=== PATIENT | male | born 1950 | race Caucasian/White ===

== ENCOUNTER 2020-01-13 09:23 | Outpatient (CLI) | payer MEDICARE, SELFPAY ==
--- NOTE | 2020-01-14 17:27 | ONC CON_ITS ---
Dr. Becerril New Patient Note Patient: Sheng Barrios Unit #: [id number]: 1950 Dicatated By: Richie Becerril M.D.Date of Visit: Jan 13, 2020 Onc MED New Patient/Consult Referring Physician: Dr. ALLIE COTTON M.D. Chief Complaint: Lymphoma. History of Present Illness: This is a 69 year-old man with recently diagnosed follicular lymphoma, grade 1-2. He had presented with enlarged lymph nodes in the groin area on both sides and more significantly in the left axillary area. He had first become aware of the lymph node enlargement about [address] of the abdomen/pelvis on 09/10/2019 showed extensive lymphadenopathy including bilateral inguinal adenopathy measuring up to 18 mm on the left and up to 29 mm in the right, bilateral iliac chain lymphadenopathy measuring up to 2.0 cm on the left and 1.8 cm on the right, para-aortic and pericaval retroperitoneal lymphadenopathy measuring up to 2.5 cm, and central mesenteric lymphadenopathy measuring up to 10 mm. There was mild splenomegaly measuring 14.5 cm. Also noted was diffuse urinary bladder mild wall thickening and prostatic enlargement measuring 5.8 x 4.2 cm. He underwent ultrasound directed core needle biopsy of the right inguinal lymph node on 09/18/2019. Pathology showed malignant B-cell lymphoma consistent with grade 1-2 follicular center lymphoma. By immunoperoxidase the lymphoma cells were positive for CD20, BCL-2, and CD10. They were negative for MUM1 and cyclin D1. BL-6 showed equivocal staining in a few neoplastic follicles. CD3 and CD5 were noted to stain T cells. The Ki-67 showed less than 10% positive staining. He had medical oncology consultation at [facility] with Dr. Alexa Conley on 10/08/2019. The pathology was reviewed there with a diagnosis of follicular lymphoma, follicular pattern, grade 1-2. By flow cytometry the neoplastic cells were noted to be positive for CD10, CD19, CD20, CD23, CD45, FMC 7, and kappa. They were negative for CD5 and lambda. Staging PET/CT on on 11/14/2019 showed bilateral cervical adenopathy levels 1-4 within index conglomerate at the lower left cervical location with maximum SUV of 5.01. There was bilateral axillary adenopathy, more prominent on the left side with an index lesion measuring 6.0 x 4.5 cm, maximum SUV 11.34. There were multiple smaller mediastinal lymph nodes and there was extensive retroperitoneal lymphadenopathy extending into the pelvis involving common iliac, internal iliac, and external iliac lymph nodes and there were multiple bilateral inguinal lymph nodes. In the setting of low-grade lymphoma which was not overtly bulky or symptomatic, observation/expectant management was recommended. He is seen now to continue further management locally. He has been feeling good generally. He says his energy is not what it used to be, and he complains that he does not seem to be able to get into shape. He is still very active, though, and his ECOG score is 0. He has good appetite. His weight is been stable. He does not have fever or night sweats. He has no shortness of breath, cough, or chest pain. He has no GI/ complaints other than his urination is getting a little slower and he does have some nocturia. He does not have any significant joint or bone pain, though he does take glucosamine. He does not complain of headache or dizziness. He has no focal neurologic symptoms. Past Medical History: His only other medical illness is atrial fibrillation. Past Surgical History: He underwent ultsound-directed core needle biopsy of right inguinal lymph node on 09/18/2019. His only prior surgery was a left inguinal hernia repair in 2006. Medications: Eliquis 1 Tablet (of 5 mg) Oral b.i.d., Fish Oil 1 CA 125 Units/mL Capsule Oral daily, Metoprolol Tartrate 1 Tablet (of 25 mg) Oral b.i.d., Multivitamin Adult 1 Tablet Oral daily, Vitamin C 1 Capsule Oral b.i.d. Allergies: No Known Allergies. Social History: Mr. Barrios is and he is retired. He has a history of smoking 1 pack of cigarettes daily, but he quit around 1975. He does not drink alcohol. Family History: Father of colon cancer at age 72. Mother age 78 with bronchitis. A brother has heart disease and diabetes. 2 sisters are in good health. Review Of Symptoms: Constitutional - Overall he feels pretty good. His energy is pretty good, though not what it used to be. He is able to do all his normal activities outside. He complains that he can't get into shape anymore. His appetite is good and weight is stable. No fever, chills, hot flashes, or night sweats. ECOG score is 0, Eyes - He has some issues with his vision, states that he is suppose to be getting glasses, ENMT - No hearing loss. He has tinnitus in the right ear. No sinus congestion/drainage. No mouth sores. No sore throat or difficulty swallowing, Hematologic/Lymphatic - He bruises a little more easily, Respiratory - No shortness of breath. No cough. No pleuritic pain or hemoptysis, Cardiovascular - No angina pain. No palpitations, Gastrointestinal - No nausea or vomiting. No heartburn or acid reflux. No diarrhea or constipation. No blood in the stool or black stools, Genitourinary (M) - His urination is getting a little slower. He gets up once or twice at night. No dysuria or hematuria. No urinary frequency. No urgency or incontinence, Musculoskeletal - No significant joint or bone pain. He does take glucosamine daily, Integumentary - No skin complications, Neurologic - No headache or dizziness. No numbness/paresthesias or other focal neurologic symptoms, Psychiatric - No anxiety or depression. No insomnia. Vital Signs: Performed on Jan 13, 2020 10:25: 0, 27.65, 2.20 sq.m, 73.00 in, 98 %, 59 /min (LOW), 18 /min, 130/82 mm(hg), 97.6 F (LOW), and 209.6 lbs (HIGH). Physical Examination: Constitutional - He appears to be in good general health, Eyes - Sclerae nonicteric. Conjunctivae clear, ENMT - No lesions noted in the oral cavity, Neck - No mass or thyromegaly, Hematologic/Lymphatic - There are small posterior cervical nodes. There is a large mass palpable in the left axilla, measuring in the range of 8 cm. There is no clavicular or right axillary adenopathy noted, Respiratory - Lungs are clear with good air movement bilaterally, Cardiovascular - Heart rhythm is regular. There is no murmur, gallop, or rub noted, Abdomen - Soft and non-tender. Liver and spleen are not enlarged. There is no abdominal mass or ascites noted. There are small inguinal nodes palpable bilaterally, Back/Spine - No spine or CVA tenderness noted, Extremities - No edema. Pedal pulses are palpable bilaterally. There are a few scattered purpuric lesions, Integumentary - No rashes. No suspicious skin lesions noted, Neurologic - No focal neurologic deficits noted. Lab/Imaging: His laboratory studies on 10/08/2020 included CBC showing hemoglobin 14.9 g, white blood cell count 4900, and platelet count 153,000. The differential showed 67% neutrophils, 22% lymphocytes, 7% monocytes, and 1% eosinophils. Comprehensive metabolic profile showed normal renal function with BUN 14 and creatinine 0.93 mg/dL. Bilirubin and liver enzymes were normal. Albumin was normal at 4.1 g/dL. LDH was normal at 164 U/L. The beta 2 microglobulin was normal at 2.30 mg/L. His HIV, HCV, and HBsAb serologies were negative, and the hepatitis B surface antigen also was negative. Impression: 1. Patient with follicular lymphoma, grade 1-2, stage at least III, but not overtly symptomatic. 2. Paroxysmal atrial fibrillation. Plan: I reviewed the CT and PET/CT findings and images, and we discussed the pathology results and clinical implications. He has low-grade lymphoma with generalized lymphadenopathy. With the exception of the left axillary involvement, it is not bulky and he is not overtly symptomatic with it. He has been aware of enlarged lymph nodes for at least 2 years, so it does seem very unlikely that it would be showing rapid progression. Furthermore, he has noticed that the left axillary mass has tended to fluctuate up and down somewhat. Overall, given the findings and clinical course, observation/expectant management still appears to be appropriate. As such, I will plan a follow-up visit with surveillance CT scans of the chest, abdomen, and pelvis at a 6-month interval from the PET/CT. Signed By: Richie Becerril M.D. <<Signature on File>>
== END 2020-01-13 09:24 | disposition home or self-care (01) ==
LOC: ONCMED 09:23
PROVIDERS: Family Provider Orthopaedic Surgery; PCP Family Medicine; Referring Provider Family Medicine; Visit Provider Internal Medicine Medical Oncology
DX: C82.18 Follicular lymphoma grade II, lymph nodes of multiple sites (principal); I48.0 Paroxysmal atrial fibrillation; Z87.891 Personal history of nicotine dependence; Z79.01 Long term (current) use of anticoagulants
CPT/HCPCS: 99205

== ENCOUNTER 2020-04-12 09:15 | Outpatient (CLI) | payer MEDICARE, SELFPAY ==
[2020-04-12 13:54] LABS: Basophils % 0.5 %; Eosinophils # 0.1 10^3/uL (0.0-0.8); Hematocrit 45.7 % (42.0-52.0); Hemoglobin 14.8 g/dL (11.7-16.6); Lymphocytes # 1.5 10^3/uL (0.8-4.8); Lymphocytes % 26.1 %; Mean Corpuscular HGB Conc 32.4 g/dL (30.0-36.0); Mean Corpuscular Hemoglobin 29.8 pg (28.0-34.0); Mean Corpuscular Volume 92.1 fL (80-94); Monocytes # 0.4 10^3/uL (0.2-0.9); Monocytes % 7.5 %; Neutrophils # 3.5 10^3/uL (1.8-7.7); Neutrophils % 63.4 %; Nucleated Red Blood Cells % 0 %; Platelet Count 169 10^3/cmm (130-400); Red Blood Count 4.96 10^6/uL (4.1-5.3); Red Cell Distribution Width 13.3 % (12.1-15.1); White Blood Count 5.6 10^3/uL (4.0-10.0)
[2020-04-12 14:04] LABS: Alanine Aminotransferase 12 U/L (0-41); Albumin Level 4.1 g/dL (3.5-5.2); Alkaline Phosphatase 87 IU/L (40-130); Anion Gap 17.4 (5-19); Aspartate Amino Transferase 23 U/L (0-40); Blood Urea Nitrogen 11 mg/dL (8-23); Calcium 9.5 mg/dL (8.5-10.5); Carbon Dioxide 25 mmol/L (22-29); Chloride 102 mmol/L (98-107); Globulin 2.6 g/dL (1.3-4.6); Glomerular Filtration Rate 95.6 mL/min (90-130); Glucose 88 mg/dL (65-115); Lactate Dehydrogenase 201 U/L (135-225); Osmolality Calculated 285 mOsm/kg (285-295); Potassium 4.4 mmol/L (3.5-5.1); Sodium 140 mmol/L (136-145); Total Bilirubin 0.6 mg/dL (0.15-1.2); Total Protein 6.7 g/dL (6.6-8.7)
== END 2020-04-12 09:16 | disposition home or self-care (01) ==
LOC: ONCMED 13:44
PROVIDERS: Family Provider Orthopaedic Surgery; PCP Family Medicine; Visit Provider Internal Medicine Medical Oncology
DX: C82.18 Follicular lymphoma grade II, lymph nodes of multiple sites (principal)
CPT/HCPCS: 80053; 83615; 85025

== ENCOUNTER 2020-04-13 13:13 | Outpatient (CLI) | payer MEDICARE, SELFPAY ==
--- NOTE | 2020-04-17 10:07 | ONC FU_ITS ---
Dr. Becerril Patient Follow-Up Note Patient: Sheng Barrios Unit #: [id number]: 1950 Dicatated By: Richie Becerril M.D.Date of Visit:Apr 13, 2020 Onc Med Follow-up/Prog Note Chief Complaint: Lymphoma. History of Present Illness: This is a 69 year-old man with recently diagnosed follicular lymphoma, grade 1-2. He had presented with enlarged lymph nodes in the groin area on both sides and more significantly in the left axillary area. He had first become aware of the lymph node enlargement about [address] of the abdomen/pelvis on 09/10/2019 showed extensive lymphadenopathy including bilateral inguinal adenopathy measuring up to 18 mm on the left and up to 29 mm in the right, bilateral iliac chain lymphadenopathy measuring up to 2.0 cm on the left and 1.8 cm on the right, para-aortic and pericaval retroperitoneal lymphadenopathy measuring up to 2.5 cm, and central mesenteric lymphadenopathy measuring up to 10 mm. There was mild splenomegaly measuring 14.5 cm. Also noted was diffuse urinary bladder mild wall thickening and prostatic enlargement measuring 5.8 x 4.2 cm. He underwent ultrasound directed core needle biopsy of the right inguinal lymph node on 09/18/2019. Pathology showed malignant B-cell lymphoma consistent with grade 1-2 follicular center lymphoma. By immunoperoxidase the lymphoma cells were positive for CD20, BCL-2, and CD10. They were negative for MUM1 and cyclin D1. BL-6 showed equivocal staining in a few neoplastic follicles. CD3 and CD5 were noted to stain T cells. The Ki-67 showed less than 10% positive staining. He had medical oncology consultation at [facility] with Dr. Alexa Conley on 10/08/2019. The pathology was reviewed there with a diagnosis of follicular lymphoma, follicular pattern, grade 1-2. By flow cytometry the neoplastic cells were noted to be positive for CD10, CD19, CD20, CD23, CD45, FMC 7, and kappa. They were negative for CD5 and lambda. Staging PET/CT on on 11/14/2019 showed bilateral cervical adenopathy levels 1-4 within index conglomerate at the lower left cervical location with maximum SUV of 5.01. There was bilateral axillary adenopathy, more prominent on the left side with an index lesion measuring 6.0 x 4.5 cm, maximum SUV 11.34. There were multiple smaller mediastinal lymph nodes and there was extensive retroperitoneal lymphadenopathy extending into the pelvis involving common iliac, internal iliac, and external iliac lymph nodes and there were multiple bilateral inguinal lymph nodes. In the setting of low-grade lymphoma which was not overtly symptomatic, observation was recommended. I had seen him initially on 01/13/2020. Despite having a fairly bulky left axillary mass, he was not symptomatic with it, and we opted to just continue with observation/expectant management. He has additional history of atrial fibrillation. He is on chronic anticoagulation with apixaban. He has no other medical illnesses. He has a history of smoking 1 pack of cigarettes daily, but he quit smoking sometime in the mid 1970s. He is seen for a follow-up visit. He has been feeling good generally. He has pretty good energy, and he continues to have normal activity. ECOG score is 0. He has good appetite. He has no fever or night sweats. He has no shortness of breath, cough, or chest pain. He has no GI/ complaints other than frequent urination. He has no significant joint or bone pain. He has no focal neurologic symptoms. Medications: Eliquis 1 Tablet (of 5 mg) Oral b.i.d., Fish Oil 1 CA 125 Units/mL Capsule Oral daily, Metoprolol Tartrate 1 Tablet (of 25 mg) Oral b.i.d., Multivitamin Adult 1 Tablet Oral daily, Vitamin C 1 Capsule Oral b.i.d. Allergies: No Known Allergies. Review of Systems: Constitutional - He has pretty good energy. He has normal activity. Appetite is good and weight is stable. No fever or night sweats. ECOG score is 0, ENMT - No sinus congestion/drainage. No mouth sores. No sore throat or difficulty swallowing, Hematologic/Lymphatic - No abnormal bruising or bleeding, Respiratory - No shortness of breath. No cough. No pleuritic pain or hemoptysis, Cardiovascular - No angina pain. No palpitations, Gastrointestinal - No nausea or vomiting. No heartburn or acid reflux. No diarrhea or constipation. No blood in the stool or black stools, Genitourinary (M) - No dysuria or hematuria. He has urinary frequency. No urgency or incontinence, Musculoskeletal - No significant joint or bone pain, Integumentary - , Neurologic - No headache or dizziness. No numbness or tingling. No other focal neurologic symptoms, Psychiatric - No anxiety or depression. No insomnia. Vital Signs: Performed on Apr 13, 2020 13:41 Height - 73.00 in Weight - 210.2 lbs (HIGH) BSA - 2.20 sq.m BMI - 27.73 Temperature - 98.4 F Pulse - 71 /min Respiration - 18 /min BP - 140/77 mm(hg) O2 Sat - 98 % Pain - 0 Physical Examination: Constitutional - He looks good generally, Eyes - Sclerae nonicteric. Conjunctivae clear, ENMT - No lesions noted in the oral cavity, Hematologic/Lymphatic - There are small cervical nodes bilaterally. There is no clavicular adenopathy noted. There is just a small node in the right axilla. The left axillary mass appears unchanged, measuring approximately 10 x 8 cm, Respiratory - Lungs are clear with good air movement bilaterally, Cardiovascular - Heart rhythm is regular. There is no murmur, gallop, or rub noted, Abdomen - Soft. Liver and spleen are not enlarged. There is no abdominal mass or ascites noted. There are small inguinal nodes palpable bilaterally, Extremities - No edema, Neurologic - No focal neurologic deficits noted. Lab/Imaging: CBC shows hemoglobin 14.8 g, white blood cell count 5600, and platelet count 169,000. Comprehensive metabolic profile is unremarkable. LDH is normal at 201 U/L. Impression: 1. Patient with follicular lymphoma, grade 1-2, stage at least III, but not overtly symptomatic. 2. Paroxysmal atrial fibrillation. He has generalized lymphadenopathy. He has a fairly large left axillary mass, but the adenopathy is otherwise not bulky. He is not symptomatic with it. His overall clinical status appears stable. Plan: As long his disease is not symptomatic and not showing obvious progression, he remains on observation/expectant management. I will see him again in 3 months. Signed By: Richie Becerril M.D. <<Signature on File>>
== END 2020-04-13 13:14 | disposition home or self-care (01) ==
LOC: ONCMED 13:16
PROVIDERS: PCP Family Medicine; Visit Provider Internal Medicine Medical Oncology
DX: C82.18 Follicular lymphoma grade II, lymph nodes of multiple sites (principal); I48.91 Unspecified atrial fibrillation; R59.0 Localized enlarged lymph nodes
CPT/HCPCS: G0463

== ENCOUNTER 2020-06-04 12:54 | Emergency (ER) | payer MEDICARE, SELFPAY ==
[2020-06-04 12:56] VITALS: BP 147/85; PULSE 84; RESP 18; TEMP 37.3; O2SAT 92; BMI 27.0
[2020-06-04 13:19] VITALS: BP 133/74; PULSE 74; RESP 18; O2SAT 98
--- NOTE | 2020-06-04 13:21 | ED_ITS ---
HPI - Ear Problem General: Chief complaint: Ear Stated complaint: knot on ear Time Seen by Provider: 06/04/20 13:03 History of Present Illness: HPI Narrative: [place] now has right swollen ear that is painful as discharge MD Complaint: ear pain and ear discharge Location: right ear Duration: constant Severity: moderate Relieving factors: nothing Exacerbating factors: nothing Context: recent swimming Discharge from ear: yes - clear Associated symptoms: Reports no associated symptoms, ear or mastoid pain and external ear pain; Denies fever(s) or headache(s) Review of Systems Const: Denies: fever(s), chills or body aches Eyes: Denies: change in vision or blurry vision ENMT: Reports: ear or mastoid pain Card: Denies: chest pain or dyspnea on exertion Resp: Denies: dyspnea, productive cough or non-productive cough GI: Denies: abdominal pain, nausea or vomiting : Denies: difficulty urinating Musc: Denies: extremity pain Skin/Breast: Denies: rash Neuro: Denies: headache(s) Psych: Denies: anxiety or depression Sergio/Lymph: Denies: easy bruising Physical Exam Const: COMMON NORMALS: no acute distress, average body habitus and patient oriented x3 HENMT: COMMON NORMALS: normocephalic HEAD & SCALP: normal to inspection and normocephalic FACE & SINUS: normal facial exam EXTERNAL EAR: Yes external ear abnormal (Red and swollen does have some clear drainage unable to visualize canal.) Eye: COMMON NORMALS: conjunctivae normal GENERAL EYE: appearance normal, both eyes and all related structures CONJUNCTIVA: Yes conjunctivae normal Neck/C-Spine: COMMON NORMALS: no JVD Chest: COMMONS NORMALS: normal inspection of the chest Resp: COMMON NORMALS: normal respiratory effort Cardio: COMMON NORMALS: no JVD Extremity: COMMON NORMALS: normal to inspection and full ROM Neuro: COMMON NORMALS: patient oriented x3 Course Vital Signs: Vital signs: Vital Signs Temperature 99.1 F 06/04/20 12:56 Pulse Rate 84 06/04/20 12:56 Respiratory Rate 18 06/04/20 12:56 Blood Pressure 147/85 06/04/20 12:56 Pulse Oximetry 92 06/04/20 12:56 Discharge Plan Discharge Patient Disposition: Home Clinical Impression: Otitis externa Qualifiers: Otitis externa type: diffuse Chronicity: acute Laterality: right Qualified Code(s): H60.311 - Diffuse otitis externa, right ear Condition: Stable Prescriptions: New Cortisporin-TC 3.3-3-10-0.5 mg/mL drops,suspension 4 drop EAR-BOTH TID Qty: 10 RF: 0 Augmentin 875-125 mg tablet 1 tab PO BID Qty: 14 RF: 0 No Action Eliquis RF: 0 Discharge Orders: Discharge Order (Routine); Ordered 06/04/20 Ordered By: Guilherme Lagos Referrals: Tevin Ledesma MD [Primary Care Provider] - Discharge Diet: Usual diet Discharge Activity: Increase activity as tolerated Patient Instructions: Otitis Externa (ED) Activity Restrictions/Additional Instructions: Follow-up with medical provider as directed. Take medications as prescribed. Return to the ER or your medical provider if condition worsens. Please read and understand discharge instructions. If any questions ask please. Coding Level of Care Code ED Surface Mount Technology Operator for Maren Alexander
== END 2020-06-04 13:45 | disposition home or self-care (01) ==
PROVIDERS: Emergency Provider Nurse Practitioner Family; PCP Family Medicine
DX: H60.311 Diffuse otitis externa, right ear (principal); Z79.01 Long term (current) use of anticoagulants
CPT/HCPCS: 12345; 99281

== ENCOUNTER 2020-06-06 11:17 | Emergency (ER) | payer MEDICARE, SELFPAY ==
[2020-06-06 11:35] VITALS: BP 135/87; PULSE 76; RESP 16; TEMP 37.1; O2SAT 97; BMI 26.6
--- NOTE | 2020-06-06 12:02 | CTR_ITS ---
PROCEDURE INFORMATION: Exam: CT Head Without Contrast Exam date and time: 06/06/2020 12:04 PM Age: 69 years old Clinical indication: Walking, difficulty; Additional info: Facial drop, right ear pain, history of lymphoma TECHNIQUE: Imaging protocol: Computed tomography of the head without contrast. Radiation optimization: All CT scans at this facility use at least one of these dose optimization techniques: automated exposure control; mA and/or kV adjustment per patient size (includes targeted exams where dose is matched to clinical indication); or iterative reconstruction. COMPARISON: No relevant prior studies available. RADIATION DOSE METRICS: Total DLP (mGy-cm): 752.52 FINDINGS: Brain: Horowitz white matter distinction is maintained throughout the brain. No radiographic evidence of intracranial hemorrhage. No CT evidence of mass hemorrhage or acute infarction. Ventricles: Ventricles are of normal size and configuration. Bones/joints: Unremarkable. No acute fracture. Sinuses: Visualized sinuses are unremarkable. No fluid levels. Mastoid air cells: Visualized mastoid air cells are well aerated. Soft tissues: Unremarkable. Other findings: No intra or extra-axial masses, lesions or collections. CT/CT head wo con* 15090 IMPRESSION: No acute intracranial process is appreciated. Radiation Dose CTDIVOL = (mGy): DLP = 752.52 (mGy-cm)
--- NOTE | 2020-06-06 12:03 | ECG_ITS ---
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 Measurements Intervals [place] Rate: 68 P: 41 IA: 161 QRS: 45 QRSD: 106 T: 12 QT: 372 QTc: 397 Interpretive Statements SINUS RHYTHM POSSIBLE INFERIOR MYOCARDIAL INFARCTION , PROBABLY OLD [30 ms Q WAVE IN II/aVF] No previous ECG available for comparison Electronically Signed On 06-07-2020 9:25:03 CDT by Cady Brown M.D. [email or web address]
--- NOTE | 2020-06-06 12:03 | XRR_ITS ---
PROCEDURE INFORMATION: Exam: XR Chest, 1 View Exam date and time: 06/06/2020 12:04 PM Age: 69 years old Clinical indication: Cough and fever; Additional info: Cough, fever TECHNIQUE: Imaging protocol: XR of the chest Views: 1 view. COMPARISON: No relevant prior studies available. FINDINGS: Lungs: Unremarkable. No consolidation. Pleural space: Unremarkable. No pleural effusion. No pneumothorax. Heart/Mediastinum: Unremarkable. No cardiomegaly. Bones/joints: Unremarkable. XR/XR chest 1V portable [id number] IMPRESSION: No acute findings.
[2020-06-06 12:20] LABS: Basophils % 0.3 %; Eosinophils % 0.2 %; Hematocrit 43.4 % (42.0-52.0); Hemoglobin 14.5 g/dL (11.7-16.6); Lymphocytes # 1.2 10^3/uL (0.8-4.8); Lymphocytes % 13.2 %; Mean Corpuscular HGB Conc 33.4 g/dL (30.0-36.0); Mean Corpuscular Hemoglobin 29.7 pg (28.0-34.0); Mean Corpuscular Volume 88.8 fL (80-94); Mean Platelet Volume 9.6 fL (7.4-10.4); Monocytes # 0.9 10^3/uL (0.2-0.9); Monocytes % 10.1 %; Neutrophils # 6.75 10^3/uL (1.8-7.7); Neutrophils % 75.6 %; Nucleated Red Blood Cells % 0 %; Platelet Count 156 10^3/cmm (130-400); Red Blood Count 4.89 10^6/uL (4.1-5.3); Red Cell Distribution Width 12.4 % (12.1-15.1); White Blood Count 8.9 10^3/uL (4.0-10.0)
[2020-06-06 12:39] LABS: Lactate (Lactic Acid level) 1.3 mmol/L (0.5-2.2)
[2020-06-06 12:50] LABS: NT Pro B Type Natriuretic Pept 145 pg/mL (0-125); Procalcitonin 0.06 ng/mL (0-0.5)
[2020-06-06 12:56] LABS: Add Urine Microscopic? NO
[2020-06-06 13:03] LABS: Alanine Aminotransferase 13 U/L (0-41); Albumin Level 3.9 g/dL (3.5-5.2); Alkaline Phosphatase 82 IU/L (40-130); Anion Gap 15.2 (5-19); Aspartate Amino Transferase 19 U/L (0-40); Blood Urea Nitrogen 12 mg/dL (8-23); C Reactive Protein 34.6 mg/L (0.0-4.9); Carbon Dioxide 23 mmol/L (22-29); Chloride 89 mmol/L (98-107); Globulin 3.3 g/dL (1.3-4.6); Glomerular Filtration Rate 111.5 mL/min (90-130); Glucose 137 mg/dL (65-115); Osmolality Calculated 254 mOsm/kg (285-295); Potassium 4.2 mmol/L (3.5-5.1); Sodium 123 mmol/L (136-145); Total Bilirubin 0.8 mg/dL (0.15-1.2); Total Protein 7.2 g/dL (6.6-8.7)
[2020-06-06 13:09] LABS: Troponin(5th) Baseline 7 ng/L (0-15)
[2020-06-06 13:11] LABS: Bilirubin Urine Neg (NEGATIVE); Blood Urine Neg (Negative); Glucose Urine UA Norm (Normal); Ketones Urine 1+ (Negative); Nitrate Urine Negative (Negative); Protein Urine Neg (Negative); Urine Appearance Clear (CLEAR); Urine Color Yellow (Yellow); Urobilinogen Urine 4 mg/dL (Negative); pH Urine 5 (5-7)
[2020-06-06 13:12] LABS: Leukocyte Esterase Urine Negative (Negative)
--- NOTE | 2020-06-06 13:12 | ED_ITS ---
HPI - General Adult General: Chief complaint: General Medical Stated complaint: nausea, feels off balance Time Seen by Provider: 06/06/20 11:47 History of Present Illness: HPI narrative: This patient is a 69-year-old male presenting today with a 10 or 11-day history of feeling dizzy, nauseous, weak. Over the last 2 or 3 days he has developed some cough and congestion in his chest. He does not feel short of breath. He also has been running intermittent fevers for the past 10 days or so. The highest documented fever at home is 101. He was afebrile today in the ED. He was seen by his regular doctor on Sunday and then seen here in the ER on Sunday. At that time he was complaining about ear pain and was diagnosed with swimmer's ear. He was put on Augmentin and eardrops and has taken 2 days worth of them. He does not really feel like it is any better. He also does not think that the symptoms that he is had for the past 10 or 11 days have changed at all with the addition of the antibiotics. He is having some constipation which is also unusual for him. He is very healthy and his says 2 weeks ago he was out baling hay. Over the progress of this recent illness he has become weak and unsteady on his feet and very different from his baseline. In September 2019 he was diagnosed with lymphoma. He initially had lymph nodes in his groin and axillary. He is had a complete work-up and follows now with Dr. Becerril. He was last seen in April. 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 The plan is surveillance unless his symptoms change. He has not had a known exposure to COVID but his doctor thought maybe he should be tested for that. He has been going to denominational and to the store. Onset (ago): day(s) (11) Pain Consistency: constant Relieving factors: none Exacerbating factors: movement Associated symptoms: Reports chest pain, cough, fevers/chills, malaise, nausea and weakness; Deny dyspnea, headache(s) or rash Review of Systems General: Reports: 10 or more systems reviewed and unremarkable except in HPI and below Const: Reports: malaise Eyes: Denies: change in vision ENMT: Denies: odynophagia Card: Reports: chest pain Resp: Reports: non-productive cough and chest congestion; Denies: dyspnea or productive cough GI: Reports: nausea and constipation : Denies: flank pain Musc: Denies: neck pain or back pain Skin/Breast: Denies: rash Neuro: Reports: weakness in extremities, lack of coordination, difficulty walking and dizziness; Denies: headache(s) or numbness in extremities Sergio/Lymph: Denies: easy bruising or easy bleeding PFSH ED PFSH: Social History (Updated 06/06/20 @ 11:42 by Alverto Posey RN) Smoking and tobacco status: never smoked Alcohol intake: never Substance/Drug Use: never Physical Exam Const: COMMON NORMALS: no acute distress, patient oriented x3, no limitations and alert GENERAL APPEARANCE: cooperative and comfortable HENMT: HEAD & SCALP: normal to inspection FACE & SINUS: other (Right sided facial droop) EXTERNAL EAR: Yes external ear abnormal (Right ear is erythematous, mildly swollen.) and Yes mastoids normal EXTERNAL AUDITORY CANAL: Abnormal EAC present (Right ear canal is red and inflamed) MOUTH: Normal oral and palatal mucosa present Eye: GENERAL EYE: appearance normal, both eyes and all related structures Neck/C-Spine: COMMON NORMALS: supple, no meningeal signs and no JVD Chest: COMMONS NORMALS: normal inspection of the chest Resp: COMMON NORMALS: normal respiratory effort, No use of accessory muscles and clear to auscultation bilaterally AUSCULTATION: clear to auscultation bilaterally Cardio: COMMON NORMALS: no JVD, regular rate, regular rhythm and No murmurs present (Cardio) RATE: regular rate RHYTHM: regular rhythm GI: COMMON NORMALS: Normal to inspection, nondistended, normoactive bowel sounds present, Soft to palpation and non-tender INSPECTION: Yes normal to inspection AUSCULTATION: Yes normoactive bowel sounds PALPATION: Yes Soft to palpation Back/Pelvis: COMMON NORMALS: thoracic and lumbar spine normal to inspection Extremity: COMMON NORMALS: normal to inspection Neuro: COMMON NORMALS: patient oriented x3, moves all extremities, no focal motor deficits and no sensory deficits noted SENSORIUM/ORIENTATION: Yes alert MENINGEAL SIGNS: Yes no meningeal signs CRANIAL NERVES: Yes CN VII (facial) Laterality: right CN VII findings: facial droop, flattened naso-labial fold and weak closing of eye(s) COORDINATION/BALANCE: [id number] test normal, sways with eyes open and Romberg test negative SPEECH: speech normal GAIT: Yes Ataxic gait present and Yes Staggering gait present (especially with turning) MOTOR EXAM: 5/5 motor strength present throughout COORDINATION: [id number] test normal Psych: COMMON NORMALS: mental status grossly normal, cooperative and normal affect Skin: COMMON NORMALS: no rashes or lesions noted and turgor normal GENERAL SKIN EXAM: no rashes or lesions noted and turgor normal Course Vital Signs: Vital signs: Vital Signs Temperature 98.8 F 06/06/20 11:35 Pulse Rate 80 06/06/20 18:27 Respiratory Rate 20 H 06/06/20 18:27 Blood Pressure 115/87 06/06/20 18: Pulse Oximetry 97 06/06/20 18:27 MDM - General Adult MDM Narrative: Medical decision making narrative: History of lymphoma which has not required treatment and has not been active. Fever for 10 days with development of cough recently. Concerning for COVID. Balance problems which on exam are quite notable. Right facial droop which is on the same side as a right otitis externa and periauricular cellulitis. Concerns for progression of lymphoma, extension of the ear infection, Gimenez's palsy, stroke, dural venous thrombosis. CT of the head showed no acute stroke or abscess. CT of the chest abdomen and pelvis showed lymphadenopathy consistent with prior CT. No PE. D- dimer was elevated as was the CRP. Sodium is low at 123 and calcium is low at 8.0. Other labs are normal including serial troponins. I spoke with the hospitalist here who felt like the patient should go somewhere where they could see a neurologist tonight and also possibly get a venous MR. I spoke with the transfer center at [facility] and Dr. Neri, hospitalist, has accepted the patient for admission. Lab Data: Labs: Lab Results 06/06/20 06/06/20 06/06/20 Range/Units 12:06 12:14 12:14 WBC 8.9 (4.0-10.0) 10^3/ uL RBC 4.89 (4.1-5.3) 10^6/u L Hgb 14.5 (11.7-16.6) g/dL Hct 43.4 (42.0-52.0) % MCV 88.8 (80-94) fL MCH 29.7 (28.0-34.0) pg MCHC 33.4 (30.0-36.0) g/dL RDW 12.4 (12.1-15.1) % Plt Count 156 (130-400) 10^3/c mm MPV 9.6 (7.4-10.4) fL Neut % (Auto) 75.6 % Lymph % (Auto) 13.2 % [place] % (Auto) 10.1 % Eos % (Auto) 0.2 % Baso % (Auto) 0.3 % Neut # (Auto) 6.75 (1.8-7.7) 10^3/u L Lymph # (Auto) 1.2 (0.8-4.8) 10^3/u L [place] # (Auto) 0.9 (0.2-0.9) 10^3/u L Eos # (Auto) 0.0 (0.0-0.8) 10^3/u L Baso # (Auto) 0.0 (0.0-0.1) 10^3/u L Nucleated RBC % (a uto) 0 % Nucleated RBCs # 0.0 /100WBC ESR 18 H (0-10) mm/hr D-Dimer (0-0.59) ug/mIFE U Sodium (136-145) mmol/L Potassium (3.5-5.1) mmol/L Chloride (98-107) mmol/L Carbon Dioxide (22-29) mmol/L Anion Gap (5-19) BUN (8-23) mg/dL Creatinine (0.7-1.2) mg/dL GFR Calculation (90-130) mL/min Glucose (65-115) mg/dL Calculated Osmolal ity (285-295) mOsm/k g Lactate (0.5-2.2) mmol/L Calcium (8.5-10.5) mg/dL Total Bilirubin (0.15-1.2) mg/dL AST (0-40) U/L ALT (0-41) U/L Alkaline Phosphata se (40-130) IU/L Troponin T Baselin e (0-15) ng/L Troponin T 120 Min [place] (0-15) ng/L Delta Troponin T (0-10) ABS# C-Reactive Protein (0.0-4.9) mg/L NT-Pro-B Natriuret Pep (0-125) pg/mL Total Protein (6.6-8.7) g/dL Albumin (3.5-5.2) g/dL Globulin (1.3-4.6) g/dL Procalcitonin (0-0.5) ng/mL Urine Color Yellow (Yellow) Urine Appearance Clear (CLEAR) Urine pH 5 (5-7) Ur Specific Gravit y 1.030 (1.005-1.030) Urine Protein Neg (Negative) Urine Glucose (UA) Norm (Normal) Urine Ketones 1+ H (Negative) Urine Blood Neg (Negative) Urine Nitrate Negative (Negative) Urine Bilirubin Neg (NEGATIVE) Urine Urobilinogen 4 H (Negative) mg/dL Ur Leukocyte Betina ase Negative (Negative) SARS-CoV-2 Ag (Rap id) (Negative) 06/06/20 06/06/20 06/06/20 Range/Units 12:14 12:14 12:14 WBC (4.0-10.0) 10^3/ uL RBC (4.1-5.3) 10^6/u L Hgb (11.7-16.6) g/dL Hct (42.0-52.0) % MCV (80-94) fL MCH (28.0-34.0) pg MCHC (30.0-36.0) g/dL RDW (12.1-15.1) % Plt Count (130-400) 10^3/c mm MPV (7.4-10.4) fL Neut % (Auto) % Lymph % (Auto) % [place] % (Auto) % Eos % (Auto) % Baso % (Auto) % Neut # (Auto) (1.8-7.7) 10^3/u L Lymph # (Auto) (0.8-4.8) 10^3/u L [place] # (Auto) (0.2-0.9) 10^3/u L Eos # (Auto) (0.0-0.8) 10^3/u L Baso # (Auto) (0.0-0.1) 10^3/u L Nucleated RBC % (a uto) % Nucleated RBCs # /100WBC ESR (0-10) mm/hr D-Dimer 2.40 H (0-0.59) ug/mIFE U Sodium 123 L (136-145) mmol/L Potassium 4.2 (3.5-5.1) mmol/L Chloride 89 L (98-107) mmol/L Carbon Dioxide 23 (22-29) mmol/L Anion Gap 15.2 (5-19) BUN 12 (8-23) mg/dL Creatinine 0.7 (0.7-1.2) mg/dL GFR Calculation 111.5 (90-130) mL/min Glucose 137 H (65-115) mg/dL Calculated Osmolal ity 254 L (285-295) mOsm/k g Lactate 1.3 (0.5-2.2) mmol/L Calcium 8.0 L (8.5-10.5) mg/dL Total Bilirubin 0.8 (0.15-1.2) mg/dL AST 19 (0-40) U/L ALT 13 (0-41) U/L Alkaline Phosphata se 82 (40-130) IU/L Troponin T Baselin e (0-15) ng/L Troponin T 120 Min [place] (0-15) ng/L Delta Troponin T (0-10) ABS# C-Reactive Protein 34.6 H (0.0-4.9) mg/L NT-Pro-B Natriuret Pep 145 H (0-125) pg/mL Total Protein 7.2 (6.6-8.7) g/dL Albumin 3.9 (3.5-5.2) g/dL Globulin 3.3 (1.3-4.6) g/dL Procalcitonin 0.06 (0-0.5) ng/mL Urine Color (Yellow) Urine Appearance (CLEAR) Urine pH (5-7) Ur Specific Gravit y (1.005-1.030) Urine Protein (Negative) Urine Glucose (UA) (Normal) Urine Ketones (Negative) Urine Blood (Negative) Urine Nitrate (Negative) Urine Bilirubin (NEGATIVE) Urine Urobilinogen (Negative) mg/dL Ur Leukocyte Betina ase (Negative) SARS-CoV-2 Ag (Rap id) (Negative) 06/06/20 06/06/20 06/06/20 Range/Units 12:14 12:51 14:05 WBC (4.0-10.0) 10^3/ uL RBC (4.1-5.3) 10^6/u L Hgb (11.7-16.6) g/dL Hct (42.0-52.0) % MCV (80-94) fL MCH (28.0-34.0) pg MCHC (30.0-36.0) g/dL RDW (12.1-15.1) % Plt Count (130-400) 10^3/c mm MPV (7.4-10.4) fL Neut % (Auto) % Lymph % (Auto) % [place] % (Auto) % Eos % (Auto) % Baso % (Auto) % Neut # (Auto) (1.8-7.7) 10^3/u L Lymph # (Auto) (0.8-4.8) 10^3/u L [place] # (Auto) (0.2-0.9) 10^3/u L Eos # (Auto) (0.0-0.8) 10^3/u L Baso # (Auto) (0.0-0.1) 10^3/u L Nucleated RBC % (a uto) % Nucleated RBCs # /100WBC ESR (0-10) mm/hr D-Dimer (0-0.59) ug/mIFE U Sodium (136-145) mmol/L Potassium (3.5-5.1) mmol/L Chloride (98-107) mmol/L Carbon Dioxide (22-29) mmol/L Anion Gap (5-19) BUN (8-23) mg/dL Creatinine (0.7-1.2) mg/dL GFR Calculation (90-130) mL/min Glucose (65-115) mg/dL Calculated Osmolal ity (285-295) mOsm/k g Lactate (0.5-2.2) mmol/L Calcium (8.5-10.5) mg/dL Total Bilirubin (0.15-1.2) mg/dL AST (0-40) U/L ALT (0-41) U/L Alkaline Phosphata se (40-130) IU/L Troponin T Baselin e 7 (0-15) ng/L Troponin T 120 Min [place] 6.11 (0-15) ng/L Delta Troponin T -0.89 L (0-10) ABS# C-Reactive Protein (0.0-4.9) mg/L NT-Pro-B Natriuret Pep (0-125) pg/mL Total Protein (6.6-8.7) g/dL Albumin (3.5-5.2) g/dL Globulin (1.3-4.6) g/dL Procalcitonin (0-0.5) ng/mL Urine Color (Yellow) Urine Appearance (CLEAR) Urine pH (5-7) Ur Specific Gravit y (1.005-1.030) Urine Protein (Negative) Urine Glucose (UA) (Normal) Urine Ketones (Negative) Urine Blood (Negative) Urine Nitrate (Negative) Urine Bilirubin (NEGATIVE) Urine Urobilinogen (Negative) mg/dL Ur Leukocyte Betina ase (Negative) SARS-CoV-2 Ag (Rap id) Negative (Negative) EKG Data^: EKG 1: EKG interpretation date: 06/06/20 EKG interpretation time: 13:02 Interpretation: Sinus rhythm with a rate of 68. Normal DE interval. QRS duration is 106. Normal QTC. Small Q waves in 2, 3, aVF. No acute ischemic changes. Computer generated interpretation: Head CT 06/06/20 12:02 IMPRESSION: No acute intracranial process is appreciated. Radiation Dose CTDIVOL = (mGy): DLP = 752.52 (mGy-cm) Chest X-Ray 06/06/20 12:03 IMPRESSION: No acute findings. Chest/Abdomen/Pelvis CT 06/06/20 13:21 IMPRESSION: 1. Extensive adenopathy compatible with the history of lymphoma. Haziness of the fat is also compatible with lymphoma, mild edema or anasarca. 2. No bowel thickening or inflammatory changes. No obstructing calculi. Radiation Dose CTDIVOL = (mGy): DLP = 1686.47~1686.47 (mGy-cm) Discharge Plan Discharge Patient Disposition: Xfer Short-Term Hosp Clinical Impression: Ataxia, Facial palsy, Acute hyponatremia Otitis externa Qualifiers: Otitis externa type: unspecified type Chronicity: acute Laterality: right Qualified Code(s): H60.501 - Unspecified acute noninfective otitis externa, right ear Lymphoma Qualifiers: Lymphoma type: non-Hodgkin Non-Hodgkin lymphoma type: follicular Follicular lymphoma grade: grade III, unspecified Lymphoma site: multiple regions Qualified Code(s): C82.28 - Follicular lymphoma grade III, unspecified, lymph nodes of multiple sites Condition: Stable Referrals: Tevin Ledesma MD [Primary Care Provider] - Discharge Date/Time: 06/06/20 18:29 Coding Level of Care Code ED Objects Conservator for Chg Fwd Exam Comprehensive
[2020-06-06 13:14] LABS: Erythrocyte Sedimentation Rate 18 mm/hr (0-10)
[2020-06-06 13:16] LABS: SARS Covid-2 Antigen Negative (Negative)
--- NOTE | 2020-06-06 13:21 | CTR_ITS ---
PROCEDURE INFORMATION: Exam: CT Angiography Chest With Contrast Exam date and time: 06/06/2020 1:57 PM Age: 69 years old Clinical indication: Abdominal pain; Generalized; Chest pain; Type not specified; Additional info: Fever, lymphoma, chest pain TECHNIQUE: Imaging protocol: Computed tomographic angiography of the chest with intravenous contrast. 3D rendering: MIP and/or 3D reconstructed images were created by the technologist. Radiation optimization: All CT scans at this facility use at least one of these dose optimization techniques: automated exposure control; mA and/or kV adjustment per patient size (includes targeted exams where dose is matched to clinical indication); or iterative reconstruction. Contrast material: OMNIPAQUE 350; Contrast volume: 95 ml; Contrast route: INTRAVENOUS (IV); COMPARISON: CR (CHEST, ) 06/06/2020 12:16 PM RADIATION DOSE METRICS: Total DLP (mGy-cm): 1686.47 FINDINGS: Pulmonary arteries: There is no pulmonary embolus. Aorta: Unremarkable. No aortic aneurysm. No aortic dissection. Lungs: There is subpleural atelectasis of the dependent portions of the lungs. Mild ground-glass opacity above the costophrenic angles may reflect mild pneumonitis or just atelectasis. There is a 5 mm subpleural nodule right lung image 456 series 2. There is a 5 mm nodule right lung base image 452. No dense lobar consolidation. Pleural space: Unremarkable. No pneumothorax. No pleural effusion. Heart: There is borderline cardiomegaly. Mediastinal space: A small hiatal hernia is present. Lymph nodes: There is bulky adenopathy in the left axilla with a conglomerate mass of adenopathy measuring 6.7 x 10.1 cm in size image 177. Multiple lymph nodes in the right axilla are noted but are smaller measuring up to 1.8 cm in short axis. There are also multiple lymph nodes in the mediastinum including a 1 point 5 cm short axis lymph node in the aortopulmonary window. No pathologic hilar adenopathy is identified. Subcentimeter right retrocrural lymph nodes are noted. Bones/joints: Unremarkable. No acute fracture. Soft tissues: Unremarkable. IMPRESSION: 1. There is no pulmonary embolus. 2. Extensive adenopathy greatest in the left axilla. This is compatible with the history of lymphoma. 3. Mild dependent atelectasis versus pneumonitis. 4. Two 5 mm soft tissue nodules right lung base are noted.Fleischner follow up recommendations for incidental nodules are not indicated. Follow up per patient's medical condition. PROCEDURE INFORMATION: Exam: CT Abdomen And Pelvis With Contrast Exam date and time: 06/06/2020 1:57 PM Age: 69 years old Clinical indication: Abdominal pain; Generalized; Chest pain; Type not specified; Additional info: Fever, lymphoma, chest pain TECHNIQUE: Imaging protocol: Computed tomography of the abdomen and pelvis with intravenous contrast. Radiation optimization: All CT scans at this facility use at least one of these dose optimization techniques: automated exposure control; mA and/or kV adjustment per patient size (includes targeted exams where dose is matched to clinical indication); or iterative reconstruction. Contrast material: OMNIPAQUE 350; Contrast volume: 95 ml; Contrast route: INTRAVENOUS (IV); COMPARISON: CR (CHEST, ) 06/06/2020 12:16 PM RADIATION DOSE METRICS: Total DLP (mGy-cm): 1686.47 FINDINGS: Mediastinal space: A small hiatal hernia is present. Liver: Unremarkable.No mass. Gallbladder and bile ducts: The gallbladder demonstrates layering density consistent with noncalcified stones or sludge. There is no wall thickening or pericholecystic fluid to suggest cholecystitis. Pancreas: Normal. No ductal dilation. Spleen: The spleen is homogeneous in density measuring 15 cm in length. Adrenals: Normal. No mass. Kidneys and ureters: There is no evidence of hydronephrosis. There is no evidence of renal calcifications. Stomach and bowel: There is a gastric diverticulum. There is no evidence of intestinal perforation or obstruction. There is no evidence of colitis/diverticulitis. No bowel thickening. Appendix: A normal appendix is identified. Intraperitoneal space: There is haziness of the mesenteric fat which may simply be related to lymphoma or mild edema/anasarca. No intraperitoneal fluid collection or abscess. No free intraperitoneal air. Retroperitoneal space: Hazy infiltration of the fat in the retroperitoneum and along the common iliac vessels/pelvic sidewalls is noted. Vasculature: The aorta demonstrates moderate atherosclerotic calcification. There is heterogeneous enhancement of the femoral veins compatible with poor admixture of contrast. No definite DVT. Lymph nodes: Adenopathy is identified especially in the retroperitoneum. For example there is a left periaortic lymph node image 38 that measures 4.4 x 4.8 cm in size. Adenopathy is elevating the aorta from the spine which is compatible with the history of lymphoma. Multiple subcentimeter lymph nodes are noted in the mesenteric fat as are few enlarged lymph nodes including the lymph node in the left mesentery image 42 measuring 1.8 cm in short axis. There is bilateral adenopathy in the groin right greater than left with the largest lymph node in the right groin measuring 2 cm in short axis. Is adenopathy is also noted along the pelvic sidewalls with the largest solitary lymph node on the left image 75 measuring 2.3 cm in short axis. Bladder: There is nonspecific bladder wall thickening. This may be related to incomplete distention. Reproductive: Unremarkable as visualized. Bones/joints: There is partial ankylosis of the sacroiliac joints and moderate degenerative changes in the spine. Soft tissues: Unremarkable. CT/CT angio chest w abd pel w con IMPRESSION: 1. Extensive adenopathy compatible with the history of lymphoma. Haziness of the fat is also compatible with lymphoma, mild edema or anasarca. 2. No bowel thickening or inflammatory changes. No obstructing calculi. Radiation Dose CTDIVOL = (mGy): DLP = 1686.47~1686.47 (mGy-cm)
--- NOTE | 2020-06-06 14:03 | ECG_ITS ---
[facility] Test Date: 2020-06-06 Pat Name: Sheng Barrios Department: Room: Gender: Male Legal Financial Specialist: : 1950 Requested By: Cora Alexander Order Number: [id number] Delfino MD: Cady Brown M.D. Measurements Intervals [place] Rate: 72 P: 54 PA: 161 QRS: 54 QRSD: 107 T: 13 QT: 383 QTc: 421 Interpretive Statements SINUS RHYTHM Compared to ECG 06/06/2020 12:57:17 Myocardial infarct finding no longer present Electronically Signed On 06-07-2020 9:41:36 CDT by Cady Brown M.D. [email or web address] general hospitalKanariwayne hospitalW[facility]/store/OM/[id number]
[2020-06-06] MEDS: iohexol 350 mg/mL 100 mL Btl IV (14:20)
[2020-06-06 14:53] LABS: Troponin 5 2HR 6.11 ng/L (0-15)
[2020-06-06 15:10] LABS: Troponin 5 2HR Delta -0.89 ABS# (0-10)
[2020-06-06 15:53] VITALS: BP 144/78; PULSE 73; RESP 18; O2SAT 97
--- NOTE | 2020-06-06 18:03 | ECG_ITS ---
[facility] Test Date: 2020-06-06 Pat Name: Sheng Barrios Department: Room: Gender: Male General Internal Medicine Physician: : 1950 Requested By: Cora Alexander Order Number: [id number] Delfino MD: Cady Brown M.D. Measurements Intervals [place] Rate: 70 P: 32 DC: 151 QRS: 36 QRSD: 110 T: 5 QT: 389 QTc: 421 Interpretive Statements SINUS RHYTHM POSSIBLE INFERIOR MYOCARDIAL INFARCTION , PROBABLY OLD [30 ms Q WAVE IN II/aVF] Compared to ECG 06/06/2020 14:40:53 Myocardial infarct finding now present Electronically Signed On 06-07-2020 9:42:39 CDT by Cady Brown M.D. [email or web address]/store/[id number]
[2020-06-06 18:27] VITALS: BP 115/87; PULSE 80; RESP 20; O2SAT 97
== END 2020-06-06 18:29 | disposition short-term general hospital (02) ==
PROVIDERS: Emergency Provider Emergency Medicine; PCP Family Medicine
DX: H60.501 Unspecified acute noninfective otitis externa, right ear (principal); C82.28 Follicular lymphoma grade III, unspecified, lymph nodes of multiple sites; R27.0 Ataxia, unspecified; G51.0 Bell's palsy; E87.1 Hypo-osmolality and hyponatremia; R07.9 Chest pain, unspecified
CPT/HCPCS: 12345; 36415; 70450; 71045; 71275; 74177; 80053; 81003; 83605; 83880; 84145; 84484; 85025; 85378; 85651; 86140; 87426; 93005; 99283; 99284; Q9967

== ENCOUNTER 2020-07-21 11:01 | Outpatient (CLI) | payer MEDICARE, SELFPAY ==
[2020-07-21 12:01] LABS: Basophils % 0.5 %; Eosinophils # 0.1 10^3/uL (0.0-0.8); Eosinophils % 1.3 %; Hematocrit 43.6 % (42.0-52.0); Hemoglobin 14.5 g/dL (11.7-16.6); Lymphocytes # 1.3 10^3/uL (0.8-4.8); Lymphocytes % 20.5 %; Mean Corpuscular HGB Conc 33.3 g/dL (30.0-36.0); Mean Corpuscular Hemoglobin 30.8 pg (28.0-34.0); Mean Corpuscular Volume 92.6 fL (80-94); Mean Platelet Volume 9.1 fL (7.4-10.4); Monocytes # 0.5 10^3/uL (0.2-0.9); Monocytes % 7.6 %; Neutrophils % 69.5 %; Nucleated Red Blood Cells % 0 %; Platelet Count 201 10^3/cmm (130-400); Red Blood Count 4.71 10^6/uL (4.1-5.3); White Blood Count 6.2 10^3/uL (4.0-10.0)
[2020-07-21 12:26] LABS: Alanine Aminotransferase 8 U/L (0-41); Alkaline Phosphatase 80 IU/L (40-130); Anion Gap 12.4 (5-19); Aspartate Amino Transferase 20 U/L (0-40); Blood Urea Nitrogen 12 mg/dL (8-23); Calcium 8.7 mg/dL (8.5-10.5); Carbon Dioxide 26 mmol/L (22-29); Chloride 104 mmol/L (98-107); Globulin 2.6 g/dL (1.3-4.6); Glomerular Filtration Rate 111.5 mL/min (90-130); Glucose 106 mg/dL (65-115); Lactate Dehydrogenase 203 U/L (135-225); Osmolality Calculated 286 mOsm/kg (285-295); Potassium 4.4 mmol/L (3.5-5.1); Sodium 138 mmol/L (136-145); Total Bilirubin 0.7 mg/dL (0.15-1.2); Total Protein 6.6 g/dL (6.6-8.7)
--- NOTE | 2020-07-24 13:38 | ONC FU_ITS ---
Dr. Becerril Patient Follow-Up Note Patient: Sheng Barrios Unit #: [id number]: 1950 Dicatated By: Richie Becerril M.D.Date of Visit:Jul 21, 2020 Onc Med Follow-up/Prog Note Chief Complaint: Lymphoma. History of Present Illness: This is a 69 year-old man with recently diagnosed follicular lymphoma, grade 1-2. He had presented with enlarged lymph nodes in the groin area on both sides and more significantly in the left axillary area. He had first become aware of the lymph node enlargement about [address] of the abdomen/pelvis on 09/10/2019 showed extensive lymphadenopathy including bilateral inguinal adenopathy measuring up to 18 mm on the left and up to 29 mm in the right, bilateral iliac chain lymphadenopathy measuring up to 2.0 cm on the left and 1.8 cm on the right, para-aortic and pericaval retroperitoneal lymphadenopathy measuring up to 2.5 cm, and central mesenteric lymphadenopathy measuring up to 10 mm. There was mild splenomegaly measuring 14.5 cm. Also noted was diffuse urinary bladder mild wall thickening and prostatic enlargement measuring 5.8 x 4.2 cm. He underwent ultrasound directed core needle biopsy of the right inguinal lymph node on 09/18/2019. Pathology showed malignant B-cell lymphoma consistent with grade 1-2 follicular center lymphoma. By immunoperoxidase the lymphoma cells were positive for CD20, BCL-2, and CD10. They were negative for MUM1 and cyclin D1. BL-6 showed equivocal staining in a few neoplastic follicles. CD3 and CD5 were noted to stain T cells. The Ki-67 showed less than 10% positive staining. He had medical oncology consultation at [facility] with Dr. Alexa Conley on 10/08/2019. The pathology was reviewed there with a diagnosis of follicular lymphoma, follicular pattern, grade 1-2. By flow cytometry the neoplastic cells were noted to be positive for CD10, CD19, CD20, CD23, CD45, FMC 7, and kappa. They were negative for CD5 and lambda. Staging PET/CT on on 11/14/2019 showed bilateral cervical adenopathy levels 1-4 within index conglomerate at the lower left cervical location with maximum SUV of 5.01. There was bilateral axillary adenopathy, more prominent on the left side with an index lesion measuring 6.0 x 4.5 cm, maximum SUV 11.34. There were multiple smaller mediastinal lymph nodes and there was extensive retroperitoneal lymphadenopathy extending into the pelvis involving common iliac, internal iliac, and external iliac lymph nodes and there were multiple bilateral inguinal lymph nodes. In the setting of low-grade lymphoma which was not overtly symptomatic, observation was recommended. I had seen him initially on 01/13/2020. Despite having a fairly bulky left axillary mass, he was not symptomatic with it, and we opted to just continue with observation/expectant management. He has additional history of atrial fibrillation. He is on chronic anticoagulation with apixaban. He has no other medical illnesses. He has a history of smoking 1 pack of cigarettes daily, but he quit smoking sometime in the mid 1970s. INTERIM HISTORY: He was seen for a follow-up visit on 04/13/2020. At that point he appeared stable clinically, and he continued on observation/expectant management. He is seen for a follow-up visit. In May he had developed pain in his right ear. He was ultimately determined to have shingles and he developed right Gimenez's palsy with it. With that illness he also had significant decline in his activity tolerance and in his appetite. His weight dropped close to 30 pounds. He is feeling better now, though he still has had to cut back on his activity. His ECOG score is 1. His appetite is better and he is regaining weight. He had some low-grade fever at the onset of the shingles, but that has resolved. He has not had night sweating. He has had some hearing loss on the right. The Gimenez's palsy has almost completely resolved. He has no shortness of breath, cough, or chest pain. He has no GI or complaints. He has no significant joint or bone pain. He does not complain of headache. He problems with balance and equilibrium, but that is also better now. Medications: Eliquis 1 Tablet (of 5 mg) Oral b.i.d., Fish Oil 1 CA 125 Units/mL Capsule Oral daily, Metoprolol Tartrate 1 Tablet (of 25 mg) Oral b.i.d., Multivitamin Adult 1 Tablet Oral daily, Vitamin C 1 Capsule Oral b.i.d. Allergies: No Known Allergies. Review of Systems: Constitutional - His energy is good, but he has had to cut back on his activity due to shingles. His appetite is better now, but he did lose weight. He had a low-grade fever, that has resolved. He has no night sweating. ECOG score is 1, ENMT - He has had some hearing loss in the right ear. No sinus congestion/drainage. No mouth sores. No sore throat or difficulty swallowing, Hematologic/Lymphatic - No abnormal bruising or bleeding, Respiratory - No shortness of breath. No cough. No pleuritic pain or hemoptysis, Cardiovascular - No angina pain. No palpitations, Gastrointestinal - No nausea or vomiting. No heartburn or acid reflux. No diarrhea or constipation. No blood in the stool or black stools, Genitourinary (M) - No dysuria or hematuria. No urinary frequency. No urgency or incontinence, Musculoskeletal - No joint or bone pain, Integumentary - In May he developed shingles in the area of the right ear, Neurologic - No headache or dizziness. He developed Gimenez palsy with the shingles, but that is resolving. He still has a little residual numbness at the corner of the mouth on the right side, Psychiatric - No anxiety or depression. No insomnia. Vital Signs: Performed on Jul 21, 2020 12:33 Height - 73.00 in Weight - 197.0 lbs (LOW) BSA - 2.14 sq.m BMI - 25.99 Temperature - 97.9 F (LOW) Pulse - 83 /min Respiration - 18 /min BP - 135/88 mm(hg) O2 Sat - 99 % Pain - 0 Physical Examination: Constitutional - He looks pretty good generally, Eyes - Sclerae nonicteric. Conjunctivae clear, ENMT - No lesions noted in the oral cavity, Hematologic/Lymphatic - There are tiny nodes palpable in the lower cervical, clavicular area bilaterally. There is just a small node in the right axilla. The left axillary mass appears slightly smaller measuring approximately 10 x 7 cm, Respiratory - Lungs are clear with good air movement bilaterally, Cardiovascular - Heart rhythm is regular. There is no murmur, gallop, or rub noted, Abdomen - Soft. Liver and spleen are not enlarged. There is no abdominal mass or ascites noted. There are small inguinal nodes palpable bilaterally, Extremities - No edema, Integumentary - There are no skin lesions noted, Neurologic - There is a very slight residual facial droop on the right. Lab/Imaging: Test performed on Jul 21, 2020 11:48 LDH (Total) 203 U/L Sodium 138 mmol/L Potassium 4.4 mmol/L Chloride 104 mmol/L CO2 26 mmol/L Anion Gap 12.4 BUN 12 mg/dL Creatinine 0.7 mg/dL Cr Clearance (Est) 124.11 mL/min eGFR 111.5 mL/min Glucose 106 mg/dL Osmolality - Calculated 286 mOsm/kg Calcium 8.7 mg/dL Protein, Total 6.6 g/dL Albumin 4.0 g/dL Globulin 2.6 g/dL Bilirubin, Total 0.7 mg/dL ALT (SGPT) 8 U/L AST (SGOT) 20 U/L Alkaline Phosphatase 80 IU/L WBC 6.2 10 3/uL RBC 4.71 10 6/uL HGB 14.5 g/dL HCT 43.6 % MCV 92.6 fL MCH 30.8 pg MCHC 33.3 g/dL RDW 14.0 % Platelet Count 201 10 3/cmm MPV 9.1 fL Neutrophils 4.30 10 3/uL Lymphocytes 1.3 10 3/uL Monocytes 0.5 10 3/uL Eosinophils 0.1 10 3/uL Basophils 0.0 10 3/uL Neutrophil % 69.5 % Lymphocyte % 20.5 % Monocyte % 7.6 % Eosinophil % 1.3 % Basophils % 0.5 % NRBC % 0 % Impression: 1. Patient with follicular lymphoma, grade 1-2, stage at least III, but not overtly symptomatic. 2. Paroxysmal atrial fibrillation. He has generalized lymphadenopathy, including a bulky left axillary mass. He has not symptomatic with it, and he has been followed on observation/expectant management. In May 2020 he developed herpes zoster in the right 7th cranial nerve distribution. He was quite ill with it, and he had associated Gimenez's palsy. He is showing recovery now. He does not appear to be showing any significant progression of the lymphoma. Plan: He remains on observation/expectant management. I will see him again in 6 months, or sooner as needed. Signed By: Richie Becerril M.D. <<Signature on File>>
== END 2020-07-21 11:02 | disposition home or self-care (01) ==
PROVIDERS: PCP Family Medicine; Visit Provider Internal Medicine Medical Oncology
DX: C82.18 Follicular lymphoma grade II, lymph nodes of multiple sites (principal); I48.0 Paroxysmal atrial fibrillation
CPT/HCPCS: 80053; 83615; 85025; G0463

== ENCOUNTER 2021-01-19 10:50 | Outpatient (CLI) | payer MEDICARE, SELFPAY ==
[2021-01-19 11:15] LABS: Basophils % 0.8 %; Eosinophils # 0.1 10^3/uL (0.0-0.8); Eosinophils % 1.5 %; Hematocrit 43.9 % (42.0-52.0); Hemoglobin 14.4 g/dL (11.7-16.6); Lymphocytes # 1.4 10^3/uL (0.8-4.8); Lymphocytes % 26.5 %; Mean Corpuscular HGB Conc 32.8 g/dL (30.0-36.0); Mean Corpuscular Volume 91.5 fL (80-94); Mean Platelet Volume 9.4 fL (7.4-10.4); Monocytes # 0.4 10^3/uL (0.2-0.9); Monocytes % 8.1 %; Neutrophils # 3.23 10^3/uL (1.8-7.7); Neutrophils % 62.5 %; Nucleated Red Blood Cells % 0 %; Platelet Count 159 10^3/cmm (130-400); Red Cell Distribution Width 13.3 % (12.1-15.1); White Blood Count 5.2 10^3/uL (4.0-10.0)
[2021-01-19 11:39] LABS: Alanine Aminotransferase 15 U/L (0-41); Alkaline Phosphatase 99 IU/L (40-130); Anion Gap 10.6 (5-19); Aspartate Amino Transferase 27 U/L (0-40); Blood Urea Nitrogen 14 mg/dL (8-23); Calcium 9.1 mg/dL (8.5-10.5); Carbon Dioxide 31 mmol/L (22-29); Chloride 102 mmol/L (98-107); Globulin 2.4 g/dL (1.3-4.6); Glucose 100 mg/dL (65-115); Lactate Dehydrogenase 177 U/L (135-225); Osmolality Calculated 289 mOsm/kg (285-295); Potassium 4.6 mmol/L (3.5-5.1); Sodium 139 mmol/L (136-145); Total Bilirubin 0.7 mg/dL (0.15-1.2); Total Protein 6.4 g/dL (6.6-8.7)
--- NOTE | 2021-01-19 14:30 | ONC FU_ITS ---
Dr. Becerril Patient Follow-Up Note Patient: Sheng Barrios Unit #: [id number]: 1950 Dicatated By: Richie Becerril M.D.Date of Visit:Jan 19, 2021 Onc Med Follow-up/Prog Note Chief Complaint: Lymphoma. History of Present Illness: This is a 69 year-old man with recently diagnosed follicular lymphoma, grade 1-2. He had presented with enlarged lymph nodes in the groin area on both sides and more significantly in the left axillary area. He had first become aware of the lymph node enlargement about [address] of the abdomen/pelvis on 09/10/2019 showed extensive lymphadenopathy including bilateral inguinal adenopathy measuring up to 18 mm on the left and up to 29 mm in the right, bilateral iliac chain lymphadenopathy measuring up to 2.0 cm on the left and 1.8 cm on the right, para-aortic and pericaval retroperitoneal lymphadenopathy measuring up to 2.5 cm, and central mesenteric lymphadenopathy measuring up to 10 mm. There was mild splenomegaly measuring 14.5 cm. Also noted was diffuse urinary bladder mild wall thickening and prostatic enlargement measuring 5.8 x 4.2 cm. He underwent ultrasound directed core needle biopsy of the right inguinal lymph node on 09/18/2019. Pathology showed malignant B-cell lymphoma consistent with grade 1-2 follicular center lymphoma. By immunoperoxidase the lymphoma cells were positive for CD20, BCL-2, and CD10. They were negative for MUM1 and cyclin D1. BL-6 showed equivocal staining in a few neoplastic follicles. CD3 and CD5 were noted to stain T cells. The Ki-67 showed less than 10% positive staining. He had medical oncology consultation at [facility] with Dr. Alexa Conley on 10/08/2019. The pathology was reviewed there with a diagnosis of follicular lymphoma, follicular pattern, grade 1-2. By flow cytometry the neoplastic cells were noted to be positive for CD10, CD19, CD20, CD23, CD45, FMC 7, and kappa. They were negative for CD5 and lambda. Staging PET/CT on on 11/14/2019 showed bilateral cervical adenopathy levels 1-4 within index conglomerate at the lower left cervical location with maximum SUV of 5.01. There was bilateral axillary adenopathy, more prominent on the left side with an index lesion measuring 6.0 x 4.5 cm, maximum SUV 11.34. There were multiple smaller mediastinal lymph nodes and there was extensive retroperitoneal lymphadenopathy extending into the pelvis involving common iliac, internal iliac, and external iliac lymph nodes and there were multiple bilateral inguinal lymph nodes. In the setting of low-grade lymphoma which was not overtly symptomatic, observation was recommended. I had seen him initially on 01/13/2020. Despite having a fairly bulky left axillary mass, he was not symptomatic with it, and we opted to just continue with observation/expectant management. He has additional history of atrial fibrillation. He is on chronic anticoagulation with apixaban. He has no other medical illnesses. He has a history of smoking 1 pack of cigarettes daily, but he quit smoking sometime in the mid 1970s. INTERIM HISTORY: He is seen for a follow-up visit. He has been feeling good generally. He has good energy and activity tolerance. ECOG score is 0. He has good appetite. His weight has fluctuated up and down. He has not had fever. He does have a little sweating at night. He has no shortness of breath, cough, or chest pain. He has no GI complaints. His urination is a little slower, but bladder function remains adequate. He has no significant joint or bone pain. He does not complain of headache or dizziness. He has no focal neurologic symptoms. Medications: Eliquis 1 Tablet (of 5 mg) Oral b.i.d., Fish Oil 1 CA 125 Units/mL Capsule Oral daily, Metoprolol Tartrate 1 Tablet (of 25 mg) Oral b.i.d., Multivitamin Adult 1 Tablet Oral daily, Vitamin C 1 Capsule Oral b.i.d. Allergies: No Known Allergies. Vital Signs: Performed on Jan 19, 2021 12:47 Height - 73.00 in Weight - 206.4 lbs (HIGH) BSA - 2.18 sq.m BMI - 27.23 Temperature - 97.7 F (LOW) Pulse - 70 /min Respiration - 18 /min BP - 131/72 mm(hg) O2 Sat - 97 % Pain - 0 Fatigue - 0 Physical Examination: Constitutional - He looks good generally, Eyes - Sclerae nonicteric. Conjunctivae clear, ENMT - No lesions noted in the oral cavity, Hematologic/Lymphatic - There are small cerival nodes bilaterally. There is just a small node in the right axilla. The left axillary mass has enlarged somewhat, now smaller measuring approximately 15 x 13 cm, Respiratory - Lungs are clear with good air movement bilaterally, Cardiovascular - Heart rhythm is regular. There is no murmur, gallop, or rub noted, Abdomen - Soft. Liver and spleen are not enlarged. There is no abdominal mass or ascites noted. Small inguinal nodes are palpable bilaterally, Extremities - No edema, Neurologic - No focal neurologic deficits noted. Lab/Imaging: Test performed on Jan 19, 2021 10:57 LDH (Total) 177 U/L Sodium 139 mmol/L Potassium 4.6 mmol/L Chloride 102 mmol/L CO2 31 mmol/L Anion Gap 10.6 BUN 14 mg/dL Creatinine 0.9 mg/dL Cr Clearance (Est) 99.69 mL/min Glucose 100 mg/dL Osmolality - Calculated 289 mOsm/kg Calcium 9.1 mg/dL Protein, Total 6.4 g/dL Albumin 4.0 g/dL Globulin 2.4 g/dL Bilirubin, Total 0.7 mg/dL ALT (SGPT) 15 U/L AST (SGOT) 27 U/L Alkaline Phosphatase 99 IU/L WBC 5.2 10 3/uL RBC 4.80 10 6/uL HGB 14.4 g/dL HCT 43.9 % MCV 91.5 fL MCH 30.0 pg MCHC 32.8 g/dL RDW 13.3 % Platelet Count 159 10 3/cmm MPV 9.4 fL Neutrophils 3.23 10 3/uL Lymphocytes 1.4 10 3/uL Monocytes 0.4 10 3/uL Eosinophils 0.1 10 3/uL Basophils 0.0 10 3/uL Neutrophil % 62.5 % Lymphocyte % 26.5 % Monocyte % 8.1 % Eosinophil % 1.5 % Basophils % 0.8 % NRBC % 0 % Problem List: 1. Follicular lymphoma, grade 1-2, stage at least III, but not overtly symptomatic. 2. Paroxysmal atrial fibrillation. 3. 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 He had uneventful recovery. Problems Addressed with this Encounter and Plan: Patient withi follicular lymphoma, grade 1-2, stage at least III, but not overtly symptomatic. At presentation in September 2019 he had generalized lymphadenopathy, including a bulky left axillary mass. Core needle biopsy of a right inguinal lymph node on 09/18/2019 showed malignant B-cell lymphoma consistent with grade 1-2 follicular center lymphoma. As he was not symptomatic, he initially began on expectant management. During follow-up there has been some further enlargement of the left axillary mass, which is very bulky. However, he is still not symptomatic and he prefers to just continue on observation/expectant management. Since it has been over a year since his staging PET/CT, he will be scheduled for restaging CT scans of the chest, abdomen, and pelvis. I will tentatively just plan for a follow-up visit in 6 months. Signed By: Richie Becerril M.D. <<Signature on File>>
== END 2021-01-19 10:51 | disposition home or self-care (01) ==
PROVIDERS: PCP Family Medicine; Visit Provider Internal Medicine Medical Oncology
DX: C82.18 Follicular lymphoma grade II, lymph nodes of multiple sites (principal); I48.0 Paroxysmal atrial fibrillation; Z79.01 Long term (current) use of anticoagulants
CPT/HCPCS: 36415; 80053; 83615; 85025; 99214

== ENCOUNTER 2021-01-31 11:42 | Outpatient (CLI) | payer MEDICARE, SELFPAY ==
--- NOTE | 2021-01-31 12:00 | CT_ITS ---
WS: [id number] CT CHEST, ABDOMEN, AND PELVIS TECHNIQUE: Contrast-enhanced CT of the chest, abdomen, and pelvis with coronal and sagittal reformatt ed images. CLINICAL INFORMATION: LYMPHOMA COMPARISON: CTA June 2020, PET CT November 2019, CT abdomen pelvis September 2019 DLP: 2441.[address] scans at [facility] use at least one of these dose optimization techniques: automat ed exposure control; mA and/or kV adjustment per patient size (includes targeted exams where dose is matched to clinical indication); or iterative reconstruction. CT CHEST: Mild chronic emphysematous changes. No acute pulmonary infiltrates. No focal pneumonia or pleural flu id. A few calcified granulomas. Progressed bulky and masslike left axillary lymphadenopathy. This is progressed since June 06, 2020. Largest lymph node measures 11 x 6.6 CM. Progressed left greater th an right subpectoral and axillary lymphadenopathy. Progressed AP window lymphadenopathy. Slightly pro gressed distal periesophageal and retrocrural lymphadenopathy. Tiny noncalcified nodule in the right middle lobe measuring 2-3 mm. Normal caliber thoracic aorta. CT ABDOMEN AND PELVIS: Diffuse fatty infiltration of the liver. Normal spleen. Progressed adenopathy in the central mesenter y abdomen and pelvis compared to June 06, 2020. Enlarged lymph nodes along the central mesentery an d SMA. Enlarged mesenteric lymph nodes in the midabdomen and left upper quadrant. Masslike confluent periaortic retroperitoneal lymphadenopathy progressed compared to previous. Associated new partial ob struction of the traversing ureters bilaterally with mild pelvocaliectasis and ureterectasis. Progressed iliac and pelvic lymphadenopathy. Large progressed inguinal lymph nodes measuring up to 4. 4 cm on the right Enhancing enlarged prostate with evidence of bladder outlet obstruction. Prostate measures 4.9 cm. Si gmoid diverticulosis. No evidence of acute diverticulitis. Hazy mesenteric edema in the central mesen bryant similar to previous. Hypertrophic changes thoracic spine. Mild chronic biconcave compression L2 vertebral body. CT/CT chest abd pel w con* IMPRESSION: 1. Evidence of progressed disease in the chest abdomen and pelvis as described above. 2. Progressed lymphadenopathy more prominent in the left axilla, central mesen bryant, paraaortic and retroperitoneal, and bilateral inguinal regions. 3. Mild bilateral pelvocaliectasis and ureterectasis due to partial ureteral o bstruction and tethering from the masslike paraaortic confluent lymphadenopathy . 4. Enlarged prostate with evidence of bladder outlet obstruction. Prostate lena sures 4.9 CM.
[2021-01-31] MEDS: iohexol 300 mg/mL 50 mL Btl PO (12:09)
[2021-01-31] MEDS: iohexol 300 mg/mL 100 mL Btl IV (13:53)
== END 2021-01-31 11:43 | disposition home or self-care (01) ==
LOC: RADWPI 11:48
PROVIDERS: PCP Family Medicine; Visit Provider Internal Medicine Medical Oncology
DX: C82.18 Follicular lymphoma grade II, lymph nodes of multiple sites (principal); N40.0 Benign prostatic hyperplasia without lower urinary tract symptoms; N13.4 Hydroureter
CPT/HCPCS: 71260; 74177; Q9967

== ENCOUNTER 2021-03-03 11:35 | Outpatient (CLI) | payer MEDICARE, SELFPAY ==
[2021-03-03 12:09] LABS: Basophils % 0.4 %; Eosinophils # 0.1 10^3/uL (0.0-0.8); Eosinophils % 1.9 %; Hematocrit 42.7 % (42.0-52.0); Lymphocytes # 1.2 10^3/uL (0.8-4.8); Lymphocytes % 22.4 %; Mean Corpuscular HGB Conc 32.8 g/dL (30.0-36.0); Mean Corpuscular Hemoglobin 29.9 pg (28.0-34.0); Mean Corpuscular Volume 91.2 fL (80-94); Mean Platelet Volume 9.2 fL (7.4-10.4); Monocytes # 0.6 10^3/uL (0.2-0.9); Monocytes % 10.7 %; Neutrophils % 64.2 %; Nucleated Red Blood Cells % 0 %; Platelet Count 147 10^3/cmm (130-400); Red Blood Count 4.68 10^6/uL (4.1-5.3); Red Cell Distribution Width 13.5 % (12.1-15.1); White Blood Count 5.1 10^3/uL (4.0-10.0)
[2021-03-03 12:38] LABS: Alanine Aminotransferase 8 U/L (0-41); Albumin Level 4.1 g/dL (3.5-5.2); Alkaline Phosphatase 89 IU/L (40-130); Anion Gap 14.2 (5-19); Aspartate Amino Transferase 21 U/L (0-40); Blood Urea Nitrogen 15 mg/dL (8-23); Calcium 8.5 mg/dL (8.5-10.5); Carbon Dioxide 25 mmol/L (22-29); Chloride 100 mmol/L (98-107); Globulin 1.9 g/dL (1.3-4.6); Glucose 96 mg/dL (65-115); Lactate Dehydrogenase 182 U/L (135-225); Osmolality Calculated 281 mOsm/kg (285-295); Potassium 4.2 mmol/L (3.5-5.1); Sodium 135 mmol/L (136-145); Total Bilirubin 0.8 mg/dL (0.15-1.2)
[2021-03-03 16:30] LABS: Hepatitis B Core AB, Total Non-Reactive (Nonreactive); Hepatitis B Surface AB 3.5 (11.5-1000); Hepatitis B Surface Antigen Non-Reactive (Nonreactive)
[2021-03-03 18:37] LABS: Uric Acid 6.1 mg/dL (3.4-7.0)
--- NOTE | 2021-03-04 07:07 | ONC FU_ITS ---
Dr. Becerril Patient Follow-Up Note Patient: Sheng Barrios Unit #: [id number]: 1950 Dicatated By: Richie Becerril M.D.Date of Visit:Mar 03, 2021 Onc Med Follow-up/Prog Note Chief Complaint: Lymphoma. 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 He had presented with enlarged lymph nodes in the groin area on both sides and more significantly in the left axillary area. He had first become aware of the lymph node enlargement about [address] of the abdomen/pelvis on 09/10/2019 showed extensive lymphadenopathy including bilateral inguinal adenopathy measuring up to 18 mm on the left and up to 29 mm in the right, bilateral iliac chain lymphadenopathy measuring up to 2.0 cm on the left and 1.8 cm on the right, para-aortic and pericaval retroperitoneal lymphadenopathy measuring up to 2.5 cm, and central mesenteric lymphadenopathy measuring up to 10 mm. There was mild splenomegaly measuring 14.5 cm. Also noted was diffuse urinary bladder mild wall thickening and prostatic enlargement measuring 5.8 x 4.2 cm. He underwent ultrasound directed core needle biopsy of the right inguinal lymph node on 09/18/2019. Pathology showed malignant B-cell lymphoma consistent with grade 1-2 follicular center lymphoma. By immunoperoxidase the lymphoma cells were positive for CD20, BCL-2, and CD10. They were negative for MUM1 and cyclin D1. BL-6 showed equivocal staining in a few neoplastic follicles. CD3 and CD5 were noted to stain T cells. The Ki-67 showed less than 10% positive staining. He had medical oncology consultation at [facility] with Dr. Alexa Conley on 10/08/2019. The pathology was reviewed there with a diagnosis of follicular lymphoma, follicular pattern, grade 1-2. By flow cytometry the neoplastic cells were noted to be positive for CD10, CD19, CD20, CD23, CD45, FMC 7, and kappa. They were negative for CD5 and lambda. Staging PET/CT on on 11/14/2019 showed bilateral cervical adenopathy levels 1-4 within index conglomerate at the lower left cervical location with maximum SUV of 5.01. There was bilateral axillary adenopathy, more prominent on the left side with an index lesion measuring 6.0 x 4.5 cm, maximum SUV 11.34. There were multiple smaller mediastinal lymph nodes and there was extensive retroperitoneal lymphadenopathy extending into the pelvis involving common iliac, internal iliac, and external iliac lymph nodes and there were multiple bilateral inguinal lymph nodes. In the setting of low-grade lymphoma which was not overtly symptomatic, expectant management was recommended. I had seen him initially on 01/13/2020. Despite having a fairly bulky left axillary mass, he was not symptomatic with it, and we opted to just continue with observation/expectant management. He has additional history of atrial fibrillation. He is on chronic anticoagulation with apixaban. He has no other medical illnesses. He has a history of smoking 1 pack of cigarettes daily, but he quit smoking sometime in the mid 1970s. INTERIM HISTORY: He was seen for a follow-up visit on 01/19/2021. At that point there had been further enlargement of the left axillary mass, though he was still only minimally symptomatic with his only significant complaint being some discomfort associated with the mass, mainly when lying on his left side. Restaging CT scans of the chest, abdomen, and pelvis on 01/31/2021 showed progression of bulky left axillary lymphadenopathy with the largest node measuring 11 x 6.6 cm. Also noted was progressed subpectoral adenopathy, left greater than right, and progressed AP window lymphadenopathy. The abdomen/pelvis showed progressed adenopathy in the central mesentery abdomen and pelvis with enlarged lymph nodes noted along the central mesentery and SMA. There were additional enlarged mesenteric lymph nodes in the mid abdomen and left upper quadrant and there was masslike confluent periaortic retroperitoneal lymphadenopathy. There was interval development of partial obstruction of the traversing ureters bilaterally with mild pelvocaliectasis. There was additional progressed iliac and pelvic lymphadenopathy with the largest inguinal lymph node measuring up to 4.4 cm on the right. The prostate was again noted to be enlarged measuring 4.9 cm. He is seen for a follow-up visit. He is still feeling good generally. He has good energy and normal activity. ECOG score is 0. Appetite also is good. He has no fever or night sweats. He has no shortness of breath, cough, or chest pain. He has no GI or complaints. He has no significant joint or bone pain. He does not complain of headache. 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 He has no focal neurologic symptoms. Medications: Eliquis 1 Tablet (of 5 mg) Oral b.i.d., Fish Oil 1 CA 125 Units/mL Capsule Oral daily, Metoprolol Tartrate 1 Tablet (of 25 mg) Oral b.i.d., Multivitamin Adult 1 Tablet Oral daily, Vitamin C 1 Capsule Oral b.i.d. Allergies: No Known Allergies. Vital Signs: Performed on Mar 03, 2021 14:56 Height - 73.00 in Weight - 204.8 lbs (LOW) BSA - 2.17 sq.m BMI - 27.02 Temperature - 97.4 F (LOW) Pulse - 74 /min Respiration - 18 /min BP - 126/74 mm(hg) O2 Sat - 98 % Pain - 0 Fatigue - 0 Physical Examination: Constitutional - He looks good generally, Eyes - Sclerae nonicteric. Conjunctivae clear, ENMT - No lesions noted in the oral cavity, Hematologic/Lymphatic - There are small cervical nodes bilaterally and there is a small node in the right axilla. The bulky left axillary mass appears unchanged, Respiratory - Lungs are clear with good air movement bilaterally, Cardiovascular - Heart rhythm is regular. There is no murmur, gallop, or rub noted, Abdomen - Soft. Liver and spleen are not enlarged. There is no abdominal mass or ascites noted. Bilateral inguinal adenopathy appears unchanged, Extremities - No edema, Neurologic - No focal neurologic deficits noted. Lab/Imaging: Test performed on Mar 03, 2021 11:55 LDH (Total) 182 U/L Sodium 135 mmol/L Potassium 4.2 mmol/L Chloride 100 mmol/L CO2 25 mmol/L Anion Gap 14.2 BUN 15 mg/dL Creatinine 0.7 mg/dL Cr Clearance (Est) 127.18 mL/min Glucose 96 mg/dL Osmolality - Calculated 281 mOsm/kg Calcium 8.5 mg/dL Protein, Total 6.0 g/dL Albumin 4.1 g/dL Globulin 1.9 g/dL Bilirubin, Total 0.8 mg/dL ALT (SGPT) 8 U/L AST (SGOT) 21 U/L Alkaline Phosphatase 89 IU/L WBC 5.1 10 3/uL RBC 4.68 10 6/uL HGB 14.0 g/dL HCT 42.7 % MCV 91.2 fL MCH 29.9 pg MCHC 32.8 g/dL RDW 13.5 % Platelet Count 147 10 3/cmm MPV 9.2 fL Neutrophils 3.30 10 3/uL Lymphocytes 1.2 10 3/uL Monocytes 0.6 10 3/uL Eosinophils 0.1 10 3/uL Basophils 0.0 10 3/uL Neutrophil % 64.2 % Lymphocyte % 22.4 % Monocyte % 10.7 % Eosinophil % 1.9 % Basophils % 0.4 % NRBC % 0 % Problem List: 1. Follicular lymphoma, grade 1-2, stage at least III, but not overtly symptomatic. 2. Paroxysmal atrial fibrillation. 3. 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 He had uneventful recovery. Problems Addressed with this Encounter and Plan: Patient withi follicular lymphoma, grade 1-2, stage at least III, but not overtly symptomatic. At presentation in September 2019 he had generalized lymphadenopathy, including a bulky left axillary mass. Core needle biopsy of a right inguinal lymph node on 09/18/2019 showed malignant B-cell lymphoma consistent with grade 1-2 follicular center lymphoma. As he was not symptomatic, he initially began on expectant management. During follow-up there was some further enlargement of the bulky left axillary mass and his restaging CT scans on 01/31/2021 also showed significant disease progression in the abdomen/pelvis. There was associated development of partial ureteral obstruction with mild pelvocaliectasis and ureterectasis from masslike periaortic confluent lymphadenopathy. Although he is still only minimally symptomatic, with significant disease progression and impending ureteral obstruction, he is advised to begin treatment with bendamustine/rituximab. This will be subject to verification of insurance coverage. I did review anticipated side effects with the chemotherapy which may include nausea, fatigue, alopecia, and low blood counts, among others. I discussed the risk of hypersensitivity type reactions with rituximab and the potential for immunosuppression. He will return to begin treatment once insurance coverage is verified. In the meantime, I also will check a baseline uric acid level and hepatitis B screening. He will start allopurinol prophylactically. Signed By: Richie Becerril M.D. <<Signature on File>>
== END 2021-03-03 11:36 | disposition home or self-care (01) ==
LOC: ONCMED 11:38
PROVIDERS: PCP Family Medicine; Visit Provider Internal Medicine Medical Oncology
DX: C82.18 Follicular lymphoma grade II, lymph nodes of multiple sites (principal); I48.0 Paroxysmal atrial fibrillation; G51.0 Bell's palsy; B02.9 Zoster without complications; Z79.01 Long term (current) use of anticoagulants; Z79.899 Other long term (current) drug therapy
CPT/HCPCS: 36415; 80053; 83615; 84550; 85025; 86705; 86706; 87340; 99214

== ENCOUNTER 2021-03-21 07:59 | Outpatient (CLI) | payer MEDICARE, SELFPAY ==
[2021-03-21 09:29] LABS: Basophils # 0.1 10^3/uL (0.0-0.1); Basophils % 0.9 %; Eosinophils # 0.1 10^3/uL (0.0-0.8); Eosinophils % 2.6 %; Hematocrit 43.2 % (42.0-52.0); Hemoglobin 14.2 g/dL (11.7-16.6); Lymphocytes # 1.2 10^3/uL (0.8-4.8); Lymphocytes % 22.9 %; Mean Corpuscular HGB Conc 32.9 g/dL (30.0-36.0); Mean Corpuscular Hemoglobin 30.1 pg (28.0-34.0); Mean Corpuscular Volume 91.5 fL (80-94); Mean Platelet Volume 9.5 fL (7.4-10.4); Monocytes # 0.5 10^3/uL (0.2-0.9); Monocytes % 9.4 %; Neutrophils # 3.37 10^3/uL (1.8-7.7); Neutrophils % 63.4 %; Nucleated Red Blood Cells % 0 %; Platelet Count 155 10^3/cmm (130-400); Red Blood Count 4.72 10^6/uL (4.1-5.3); Red Cell Distribution Width 13.4 % (12.1-15.1); White Blood Count 5.3 10^3/uL (4.0-10.0)
[2021-03-21 09:52] LABS: Alanine Aminotransferase 8 U/L (0-41); Alkaline Phosphatase 93 IU/L (40-130); Anion Gap 13.3 (5-19); Aspartate Amino Transferase 18 U/L (0-40); Blood Urea Nitrogen 16 mg/dL (8-23); Calcium 8.7 mg/dL (8.5-10.5); Carbon Dioxide 25 mmol/L (22-29); Chloride 104 mmol/L (98-107); Globulin 2.2 g/dL (1.3-4.6); Glucose 102 mg/dL (65-115); Lactate Dehydrogenase 187 U/L (135-225); Osmolality Calculated 287 mOsm/kg (285-295); Potassium 4.3 mmol/L (3.5-5.1); Sodium 138 mmol/L (136-145); Total Bilirubin 0.7 mg/dL (0.15-1.2); Total Protein 6.2 g/dL (6.6-8.7)
[2021-03-21] MEDS: sodium chloride 0.9% 1,000 ML 999 ML IV (10:10)
[2021-03-21] MEDS: acetaminophen 325 mg Tablet 650 MG PO (10:10)
[2021-03-21] MEDS: ondansetron 2 mg/ML SDV 2 mL 8 MG IVP (10:33)
[2021-03-21] MEDS: diphenhydrAMINE 50 mg/mL SDV 1mL 25 MG IVP (10:37)
[2021-03-21] MEDS: sodium chloride 0.9% (100 ml) 100 ML 500 ML (10:37)
--- NOTE | 2021-03-30 09:01 | ONC FU_ITS ---
[facility] Patient Note Patient: Sheng Barrios Unit #: [id number]: 1950 Dictated By: Monik HanDate of Visit: March 21, 2021 Onc MED Follow-Up/Prog Note Chief Complaint: Lymphoma. 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 He had presented with enlarged lymph nodes in the groin area on both sides and more significantly in the left axillary area. He had first become aware of the lymph node enlargement about [address] of the abdomen/pelvis on 09/10/2019 showed extensive lymphadenopathy including bilateral inguinal adenopathy measuring up to 18 mm on the left and up to 29 mm in the right, bilateral iliac chain lymphadenopathy measuring up to 2.0 cm on the left and 1.8 cm on the right, para-aortic and pericaval retroperitoneal lymphadenopathy measuring up to 2.5 cm, and central mesenteric lymphadenopathy measuring up to 10 mm. There was mild splenomegaly measuring 14.5 cm. Also noted was diffuse urinary bladder mild wall thickening and prostatic enlargement measuring 5.8 x 4.2 cm. He underwent ultrasound directed core needle biopsy of the right inguinal lymph node on 09/18/2019. Pathology showed malignant B-cell lymphoma consistent with grade 1-2 follicular center lymphoma. By immunoperoxidase the lymphoma cells were positive for CD20, BCL-2, and CD10. They were negative for MUM1 and cyclin D1. BL-6 showed equivocal staining in a few neoplastic follicles. CD3 and CD5 were noted to stain T cells. The Ki-67 showed less than 10% positive staining. He had medical oncology consultation at [facility] with Dr. Alexa Conley on 10/08/2019. The pathology was reviewed there with a diagnosis of follicular lymphoma, follicular pattern, grade 1-2. By flow cytometry the neoplastic cells were noted to be positive for CD10, CD19, CD20, CD23, CD45, FMC 7, and kappa. They were negative for CD5 and lambda. Staging PET/CT on on 11/14/2019 showed bilateral cervical adenopathy levels 1-4 within index conglomerate at the lower left cervical location with maximum SUV of 5.01. There was bilateral axillary adenopathy, more prominent on the left side with an index lesion measuring 6.0 x 4.5 cm, maximum SUV 11.34. There were multiple smaller mediastinal lymph nodes and there was extensive retroperitoneal lymphadenopathy extending into the pelvis involving common iliac, internal iliac, and external iliac lymph nodes and there were multiple bilateral inguinal lymph nodes. In the setting of low-grade lymphoma which was not overtly symptomatic, expectant management was recommended. Dr Becerril had seen him initially on 01/13/2020. Despite having a fairly bulky left axillary mass, he was not symptomatic with it, and we opted to just continue with observation/expectant management. He has had Gimenez's Palsy. He has additional history of atrial fibrillation. He is on chronic anticoagulation with apixaban. He has no other medical illnesses. He has a history of smoking 1 pack of cigarettes daily, but he quit smoking sometime in the mid 1970s. INTERIM HISTORY: He was seen for a follow-up visit on 01/19/2021. At that point there had been further enlargement of the left axillary mass, though he was still only minimally symptomatic with his only significant complaint being some discomfort associated with the mass, mainly when lying on his left side. Restaging CT scans of the chest, abdomen, and pelvis on 01/31/2021 showed progression of bulky left axillary lymphadenopathy with the largest node measuring 11 x 6.6 cm. Also noted was progressed subpectoral adenopathy, left greater than right, and progressed AP window lymphadenopathy. The abdomen/pelvis showed progressed adenopathy in the central mesentery abdomen and pelvis with enlarged lymph nodes noted along the central mesentery and SMA. There were additional enlarged mesenteric lymph nodes in the mid abdomen and left upper quadrant and there was masslike confluent periaortic retroperitoneal lymphadenopathy. There was interval development of partial obstruction of the traversing ureters bilaterally with mild pelvocaliectasis. There was additional progressed iliac and pelvic lymphadenopathy with the largest inguinal lymph node measuring up to 4.4 cm on the right. The prostate was again noted to be enlarged measuring 4.9 cm. Mr. Taveras has been encouraged to proceed with treatment although he is is mildly symptomatic. It is obvious that his disease is worsening. His current chemotherapy plan is Rituxan and bendamustine-every 28 days. He is here today for follow-up and initiation of his first cycle. He has no new concerns today. He denies any new pain. He had had no trouble swallowing. He denies any mouth sores, sore throat or cold sores. He states his energy is good. He is eating well. He denies any new concerns today. He is accompanied by his . He denies nausea or vomiting. He denies any changes with bowel or bladder. He states his bowels are still sluggish but he controls them with [id number] stool softeners and laxative as needed. He denies any peripheral neuropathy. He has had no lower extremity swelling. He denies any chest pain or palpitations currently. His ECOG is 0. Past Medical History: Atrial fibrillation Past Surgical History: Ultsound-directed core needle biopsy of right inguinal lymph node in 2019 Left inguinal hernia repair in 2006 Allergies: No Known Allergies. Medications: Allopurinol 1 Tablet (of 300 mg) Oral daily Eliquis 1 Tablet (of 5 mg) Oral b.i.d. Fish Oil 1 CA 125 Units/mL Capsule Oral daily Metoprolol Tartrate 1 Tablet (of 25 mg) Oral b.i.d. Multivitamin Adult 1 Tablet Oral daily Vitamin C 1 Capsule Oral b.i.d. Family History: Mr. Barrios's mother at age 78. Mr. Barrios's father at age 72: colon cancer. Mr. Barrios has 1 brother who is alive: diabetes, and heart disease. He has 2 sisters: 2 alive. Father of colon cancer at age 72. Mother age 78 with bronchitis. A brother has heart disease and diabetes. 2 sisters are in good health. Social History: Mr. Barrios is and he is an unknown. Mr. Barrios quit smoking 45 years ago but had smoked 1.0 pack/day for 4 years. He has no history of drinking. He has a history of smoking 1 pack of cigarettes daily, but he quit around 1975. He does not drink alcohol. Review Of Symptoms: <See Above> Vital Signs: Performed on March 21, 2021 08:45 Height - 73.00 in Weight - 205.6 lbs (HIGH) BSA - 2.18 sq.m BMI - 27.13 Temperature - 97.6 F (LOW) Pulse - 62 /min Respiration - 18 /min BP - 127/78 mm(hg) O2 Sat - 98 % Pain - 0,0 - Fully active, able to carry on all predisease activities without restrictions. (ECOG) Physical Examination: Constitutional Alert, oriented, no acute distress. Skin pink, warm and dry. Head Normocephalic; atraumatic. Eyes Conjunctivae and sclerae are clear and without icterus. Pupils are reactive and equal. ENMT No oral exudates, ulcers, masses, thrush or mucositis. Oropharynx clear. Tongue normal. Neck Supple without masses or thyromegaly. No jugular venous distension. Hematologic/Lymphatic No petechiae or purpura. No tender or palpable lymph nodes in the cervical or supraclavicular areas. Respiratory Lungs are clear to auscultation without rhonchi or wheezing. Cardiovascular Regular rate and rhythm of heart without murmurs,clicks, gallops or rubs. Abdomen Non-tender, non-distended, no masses or ascites. Good bowel sounds noted in all quads. No guarding or rebound tenderness. No pulsatile masses. Back/Spine Non-tender to palpation. Extremities No visible deformities, no cyanosis, clubbing or edema. Musculoskeletal No tenderness or swelling, normal range of motion without obvious weakness. Integumentary No rashes or lesions. Neurologic No sensory or motor deficits, normal cerebellar function, normal gait. Psychiatric Alert and oriented times three. Coherent speech. Verbalizes understanding of our discussions today. Laboratory:Test performed on March 28, 2021 10:05 Sodium 139 mmol/L Potassium 4.3 mmol/L Chloride 103 mmol/L CO2 26 mmol/L Anion Gap 14.3 BUN 12 mg/dL Creatinine 0.8 mg/dL Cr Clearance (Est) 111.7200 mL/min Glucose 94 mg/dL Osmolality - Calculated 288 mOsm/kg Calcium 8.2 mg/dL Protein, Total 6.3 g/dL Albumin 3.8 g/dL Globulin 2.5 g/dL Bilirubin, Total 0.6 mg/dL ALT (SGPT) 9 U/L AST (SGOT) 16 U/L Alkaline Phosphatase 85 IU/L WBC 5.7 10 3/uL RBC 4.79 10 6/uL HGB 14.4 g/dL HCT 43.5 % MCV 90.8 fL MCH 30.1 pg MCHC 33.1 g/dL RDW 13.7 % Platelet Count 170 10 3/cmm MPV 9.4 fL Neutrophils 3.86 10 3/uL Lymphocytes 1.1 10 3/uL Monocytes 0.5 10 3/uL Eosinophils 0.2 10 3/uL Basophils 0.0 10 3/uL Neutrophil % 67.8 % Lymphocyte % 18.6 % Monocyte % 8.4 % Eosinophil % 2.6 % Basophils % 0.7 % NRBC % 0 % Test performed on March 21, 2021 08:38 LDH (Total) 187 U/L Test performed on Mar 03, 2021 14:30 Uric Acid 6.1 mg/dL Hepatitis B Surf Antigen Non-Reactive Hepatitis B Surface Ab 3.5 STATUS of IMMUINITY Inconsistent with Immunity 0.0 - 8.4 mIU/mL Consistent with Indeterminate Immunity 8.5 - 11.4 mIU/mL Consistent with Immunity >= 11.5 mIU/mL Hepatitis B Core Ab, Total Non-Reactive Impression: 1. Follicular lymphoma, grade 1-2, stage at least III, but not overtly symptomatic. 2. Paroxysmal atrial fibrillation. 3. 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 He had uneventful recovery. Plan/Problems Addressed at this Visit: 1. Follicular lymphoma, grade 1-2, stage at least III, but not overtly symptomatic. At presentation in September 2019 he had generalized lymphadenopathy, including a bulky left axillary mass. Core needle biopsy of a right inguinal lymph node on 09/18/2019 showed malignant B-cell lymphoma consistent with grade 1-2 follicular center lymphoma. As he was not symptomatic, he initially began on expectant management. During follow-up there was some further enlargement of the bulky left axillary mass and his restaging CT scans on 01/31/2021 also showed significant disease progression in the abdomen/pelvis. There was associated development of partial ureteral obstruction with mild pelvocaliectasis and ureterectasis from masslike periaortic confluent lymphadenopathy. Although he is still only minimally symptomatic, with significant disease progression and impending ureteral obstruction, he has been advised to begin treatment with bendamustine/rituximab. He did start allopurinol prophylactically. A. Proceed with cycle 1 day 1 Rituxan/bendamustine. B. Standard antiemetics prior to bendamustine and Tylenol and Diphenhydramineprior to Rituxan. C. Today's labs reviewed in detail and discussed with Mr. Barrios and a copy was given to him. WBC 5.3, hemoglobin 14.2, platelets 1 55,000 and ANC was 3370. Potassium 4.3 creatinine is 0.7 random glucose 102 his LFTs are normal his LDH today is 187. His recent hepatitis profile was negative/nonreactive. D. We will add a uric acid to blood in lab today for baseline monitoring. 2. Follow-up plan A. He will have weekly CBC CMP. B. He will return for follow-up visit with CBC CMP LDH in 1 month. He will be due for his second cycle of Rituxan bendamustine at that time. C. Mr. Barrios was instructed to contact us in the interim should questions or problems arise. 3. Patient chemotherapy education A. The patient and family were informed of chemotherapy plan and specific drugs were discussed. We also discussed how chemotherapy works and identified common side effects including alopecia; myelosuppression-including neutropenia, anemia, thrombocytopenia; peripheral neuropathy; fatigue; nausea; diarrhea; constipation; bleeding or bruising; skin changes; mouth sores; drug hypersensitivity/allergic reactions or anaphylaxis and extravasation. They have also been informed how to contact the clinic with side effects or symptoms, including but not limited to fever greater than 100.4???, chills, sore throat, bleeding or bruising that is not explained or mouth sores, cough, nasal discharge, diarrhea, constipation, nausea and/or vomiting not relieved with medications on hand at home, as well as any other concern or question they may have. Our hours are 8:00 a.m. to 4:30 p.m. on Sunday through and 8-12:00 on Sunday. However, someone is orthodontist 24 hours per day and they have been advised to contact the [facility] at if it is after hours. We have also discussed potential long-term side effects of chemotherapy including secondary cancers, infertility, pulmonary complications, cardiac complications, and again peripheral neuropathy. We have discussed that they certainly need to let us know before taking any antioxidants or herbal or further dietary supplements, as we are unsure of how these agents react with chemotherapy and we request that they avoid these products for now. They were informed that it is okay to take multivitamins at normal doses. They verbally state that they understand to take all medications as directed by their healthcare provider unless otherwise indicated. They also verbalized understanding to leave the pressure dressing on the intravenous administration site for at least two hours after treatment. Instructions for oral care with baking soda and salt water rinses as well as a guide for use of [id number] medication were provided with the treatment plan. They have been given a written patient treatment plan, of which a copy is in the chart, as well as specific drug information. They have no questions and verbalized understanding and are willing to proceed with chemotherapy at this time. Total time spent on Mr. Miller care today including review of records prior to visit, discussion of treatment plan, side effect identification management, answering questions and post visit documentation was 55 minutes. ADDENDUM Mr. Barrios did have hives during administration of the right toxin. His administration was stopped early and he was given IV Solu-Medrol in the hives eventually resolved. He left the office in stable condition but was rescheduled to reattempt his treatment next week. He will be premedicated with Solu-Medrol per Dr. Becerril's recommendation. Mr. Barrios was instructed to contact us in the interim should questions or problems arise. Signed By: Monik Han-JAMIE, AOMarie Becerril MD <<Signature on File>>
== END 2021-03-21 08:00 | disposition home or self-care (01) ==
PROVIDERS: PCP Family Medicine; Visit Provider Nurse Practitioner
DX: Z51.12 Encounter for antineoplastic immunotherapy (principal); Z51.11 Encounter for antineoplastic chemotherapy; C82.18 Follicular lymphoma grade II, lymph nodes of multiple sites; I48.0 Paroxysmal atrial fibrillation; G51.0 Bell's palsy; Z79.899 Other long term (current) drug therapy
CPT/HCPCS: 80053; 83615; 85025; 96367; 96368; 96375; 96413; 96415; 99215; J1100; J1200; J2405; J2930; J7030; J7040; J9034; J9312

== ENCOUNTER 2021-03-28 06:15 | Outpatient (CLI) | payer MEDICARE, SELFPAY ==
[2021-03-28 10:23] LABS: Basophils % 0.7 %; Eosinophils # 0.2 10^3/uL (0.0-0.8); Eosinophils % 2.6 %; Hematocrit 43.5 % (42.0-52.0); Hemoglobin 14.4 g/dL (11.7-16.6); Lymphocytes # 1.1 10^3/uL (0.8-4.8); Lymphocytes % 18.6 %; Mean Corpuscular HGB Conc 33.1 g/dL (30.0-36.0); Mean Corpuscular Hemoglobin 30.1 pg (28.0-34.0); Mean Corpuscular Volume 90.8 fL (80-94); Mean Platelet Volume 9.4 fL (7.4-10.4); Monocytes # 0.5 10^3/uL (0.2-0.9); Monocytes % 8.4 %; Neutrophils # 3.86 10^3/uL (1.8-7.7); Neutrophils % 67.8 %; Nucleated Red Blood Cells % 0 %; Platelet Count 170 10^3/cmm (130-400); Red Blood Count 4.79 10^6/uL (4.1-5.3); Red Cell Distribution Width 13.7 % (12.1-15.1); White Blood Count 5.7 10^3/uL (4.0-10.0)
[2021-03-28 10:42] LABS: Alanine Aminotransferase 9 U/L (0-41); Albumin Level 3.8 g/dL (3.5-5.2); Alkaline Phosphatase 85 IU/L (40-130); Anion Gap 14.3 (5-19); Aspartate Amino Transferase 16 U/L (0-40); Blood Urea Nitrogen 12 mg/dL (8-23); Calcium 8.2 mg/dL (8.5-10.5); Carbon Dioxide 26 mmol/L (22-29); Chloride 103 mmol/L (98-107); Globulin 2.5 g/dL (1.3-4.6); Glucose 94 mg/dL (65-115); Osmolality Calculated 288 mOsm/kg (285-295); Potassium 4.3 mmol/L (3.5-5.1); Sodium 139 mmol/L (136-145); Total Bilirubin 0.6 mg/dL (0.15-1.2); Total Protein 6.3 g/dL (6.6-8.7)
[2021-03-28] MEDS: ondansetron 2 mg/ML SDV 2 mL 8 MG IV (12:15)
[2021-03-28] MEDS: sodium chloride 0.9% 1,000 ML 999 ML IV (12:15)
[2021-03-28] MEDS: diphenhydrAMINE 50 mg/mL SDV 1mL 25 MG IVP (12:17)
[2021-03-28] MEDS: acetaminophen 325 mg Tablet 650 MG PO (12:18)
--- NOTE | 2021-03-31 06:10 | ONC FU_ITS ---
Dr. Becerril Patient Follow-Up Note Patient: Sheng Barrios Unit #: [id number]: 1950 Dicatated By: Richie Becerril M.D.Date of Visit:March 28, 2021 Onc Med Follow-up/Prog Note Chief Complaint: Lymphoma. 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 He had presented with enlarged lymph nodes in the groin area on both sides and more significantly in the left axillary area. He had first become aware of the lymph node enlargement about [address] of the abdomen/pelvis on 09/10/2019 showed extensive lymphadenopathy including bilateral inguinal adenopathy measuring up to 18 mm on the left and up to 29 mm in the right, bilateral iliac chain lymphadenopathy measuring up to 2.0 cm on the left and 1.8 cm on the right, para-aortic and pericaval retroperitoneal lymphadenopathy measuring up to 2.5 cm, and central mesenteric lymphadenopathy measuring up to 10 mm. There was mild splenomegaly measuring 14.5 cm. Also noted was diffuse urinary bladder mild wall thickening and prostatic enlargement measuring 5.8 x 4.2 cm. He underwent ultrasound directed core needle biopsy of the right inguinal lymph node on 09/18/2019. Pathology showed malignant B-cell lymphoma consistent with grade 1-2 follicular center lymphoma. By immunoperoxidase the lymphoma cells were positive for CD20, BCL-2, and CD10. They were negative for MUM1 and cyclin D1. BL-6 showed equivocal staining in a few neoplastic follicles. CD3 and CD5 were noted to stain T cells. The Ki-67 showed less than 10% positive staining. He had medical oncology consultation at [facility] with Dr. Alexa Conley on 10/08/2019. The pathology was reviewed there with a diagnosis of follicular lymphoma, follicular pattern, grade 1-2. By flow cytometry the neoplastic cells were noted to be positive for CD10, CD19, CD20, CD23, CD45, FMC 7, and kappa. They were negative for CD5 and lambda. Staging PET/CT on on 11/14/2019 showed bilateral cervical adenopathy levels 1-4 within index conglomerate at the lower left cervical location with maximum SUV of 5.01. There was bilateral axillary adenopathy, more prominent on the left side with an index lesion measuring 6.0 x 4.5 cm, maximum SUV 11.34. There were multiple smaller mediastinal lymph nodes and there was extensive retroperitoneal lymphadenopathy extending into the pelvis involving common iliac, internal iliac, and external iliac lymph nodes and there were multiple bilateral inguinal lymph nodes. In the setting of low-grade lymphoma which was not overtly symptomatic, expectant management was recommended. I had seen him initially on 01/13/2020. Despite having a fairly bulky left axillary mass, he was not symptomatic with it, and we opted to just continue with observation/expectant management. He has additional history of atrial fibrillation. He is on chronic anticoagulation with apixaban. He has no other medical illnesses. He has a history of smoking 1 pack of cigarettes daily, but he quit smoking sometime in the mid 1970s. INTERIM HISTORY: He was seen for a follow-up visit on 01/19/2021. At that point there had been further enlargement of the left axillary mass, though he was still only minimally symptomatic with his only significant complaint being some discomfort associated with the mass, mainly when lying on his left side. Restaging CT scans of the chest, abdomen, and pelvis on 01/31/2021 showed progression of bulky left axillary lymphadenopathy with the largest node measuring 11 x 6.6 cm. Also noted was progressed subpectoral adenopathy, left greater than right, and progressed AP window lymphadenopathy. The abdomen/pelvis showed progressed adenopathy in the central mesentery abdomen and pelvis with enlarged lymph nodes noted along the central mesentery and SMA. There were additional enlarged mesenteric lymph nodes in the mid abdomen and left upper quadrant and there was masslike confluent periaortic retroperitoneal lymphadenopathy. There was interval development of partial obstruction of the traversing ureters bilaterally with mild pelvocaliectasis. There was additional progressed iliac and pelvic lymphadenopathy with the largest inguinal lymph node measuring up to 4.4 cm on the right. The prostate was again noted to be enlarged measuring 4.9 cm. With those findings, he was recommended to begin treatment with bendamustine in combination with rituximab. He began cycle 1 on 03/21/2021. The treatment was stopped during the rituximab infusion when he developed a generalized urticarial skin eruption. It resolved uneventfully on steroid/antihistamine therapy. He returns now for a second attempt at this treatment, which will be administered with a standard Solu-Medrol premedication. He is feeling fine. He has no significant complaints now. Medications: Allopurinol 1 Tablet (of 300 mg) Oral daily, Eliquis 1 Tablet (of 5 mg) Oral b.i.d., Fish Oil 1 CA 125 Units/mL Capsule Oral daily, Metoprolol Tartrate 1 Tablet (of 25 mg) Oral b.i.d., Multivitamin Adult 1 Tablet Oral daily, Vitamin C 1 Capsule Oral b.i.d. Allergies: No Known Allergies. Vital Signs: Performed on March 28, 2021 11:32 Height - 73.00 in Weight - 205.2 lbs (LOW) BSA - 2.18 sq.m BMI - 27.07 Temperature - 98.2 F (LOW) Pulse - 117 /min (HIGH) Respiration - 18 /min BP - 128/94 mm(hg) O2 Sat - 98 % Pain - 0 Fatigue - 0 Physical Examination: The skin eruption has completely resolved. There are no other changes in his physical exam. Lab/Imaging: Test performed on March 28, 2021 10:05 Sodium 139 mmol/L Potassium 4.3 mmol/L Chloride 103 mmol/L CO2 26 mmol/L Anion Gap 14.3 BUN 12 mg/dL Creatinine 0.8 mg/dL Cr Clearance (Est) 111.7200 mL/min Glucose 94 mg/dL Osmolality - Calculated 288 mOsm/kg Calcium 8.2 mg/dL Protein, Total 6.3 g/dL Albumin 3.8 g/dL Globulin 2.5 g/dL Bilirubin, Total 0.6 mg/dL ALT (SGPT) 9 U/L AST (SGOT) 16 U/L Alkaline Phosphatase 85 IU/L WBC 5.7 10 3/uL RBC 4.79 10 6/uL HGB 14.4 g/dL HCT 43.5 % MCV 90.8 fL MCH 30.1 pg MCHC 33.1 g/dL RDW 13.7 % Platelet Count 170 10 3/cmm MPV 9.4 fL Neutrophils 3.86 10 3/uL Lymphocytes 1.1 10 3/uL Monocytes 0.5 10 3/uL Eosinophils 0.2 10 3/uL Basophils 0.0 10 3/uL Neutrophil % 67.8 % Lymphocyte % 18.6 % Monocyte % 8.4 % Eosinophil % 2.6 % Basophils % 0.7 % NRBC % 0 % Problem List: 1. Follicular lymphoma, grade 1-2, stage at least III, but not overtly symptomatic. 2. Paroxysmal atrial fibrillation. 3. 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 He had uneventful recovery. Problems Addressed with this Encounter and Plan: Patient withi follicular lymphoma, grade 1-2, stage at least III, but not overtly symptomatic. At presentation in September 2019 he had generalized lymphadenopathy, including a bulky left axillary mass. Core needle biopsy of a right inguinal lymph node on 09/18/2019 showed malignant B-cell lymphoma consistent with grade 1-2 follicular center lymphoma. As he was not symptomatic, he initially began on expectant management. During follow-up there was further enlargement of the bulky left axillary mass and his restaging CT scans on 01/31/2021 also showed significant disease progression in the abdomen/pelvis. There was associated development of partial ureteral obstruction with mild pelvocaliectasis and ureterectasis from masslike periaortic confluent lymphadenopathy. With those findings he was recommended to undergo treatment with bendamustine/rituximab. He began cycle 1 on 03/21/2021. His treatment was interrupted during the rituximab infusion due to development of a generalized urticarial eruption. He has had complete recovery. He will now retry cycle 1 of bendamustine/rituximab with Solu-Medrol premedication. Assuming he is able to tolerate it, his blood counts will be monitored weekly and he will be scheduled for a follow-up visit in 4 weeks. Signed By: Richie Becerril M.D. <<Signature on File>>
== END 2021-03-28 06:16 | disposition home or self-care (01) ==
LOC: ONCMED 06:23
PROVIDERS: PCP Family Medicine; Visit Provider Internal Medicine Medical Oncology
DX: Z51.12 Encounter for antineoplastic immunotherapy (principal); Z51.11 Encounter for antineoplastic chemotherapy; C82.15 Follicular lymphoma grade II, lymph nodes of inguinal region and lower limb; I48.0 Paroxysmal atrial fibrillation; G51.0 Bell's palsy; Z79.899 Other long term (current) drug therapy; Z86.19 Personal history of other infectious and parasitic diseases
CPT/HCPCS: 80053; 85025; 96368; 96375; 96411; 96413; 96415; 99214; J1200; J2405; J2930; J7030; J7040; J9034; J9312

== ENCOUNTER 2021-03-29 10:39 | Outpatient (CLI) | payer MEDICARE, SELFPAY ==
[2021-03-29] MEDS: sodium chloride 0.9% 250 ML 999 ML IV (11:18)
[2021-03-29] MEDS: palonosetron 0.25 mg/5 mL SDV IV (11:18)
== END 2021-03-29 10:40 | disposition home or self-care (01) ==
PROVIDERS: PCP Family Medicine; Visit Provider Nurse Practitioner
DX: Z51.11 Encounter for antineoplastic chemotherapy (principal); C82.20 Follicular lymphoma grade III, unspecified, unspecified site; Z79.899 Other long term (current) drug therapy
CPT/HCPCS: 96367; 96375; 96413; J1100; J2469; J7050; J9034

== ENCOUNTER 2021-04-05 06:54 | Outpatient (CLI) | payer MEDICARE, SELFPAY ==
[2021-04-05 14:18] LABS: Basophils % 0.6 %; Eosinophils # 0.1 10^3/uL (0.0-0.8); Eosinophils % 2.6 %; Hematocrit 43.3 % (42.0-52.0); Lymphocytes # 0.5 10^3/uL (0.8-4.8); Lymphocytes % 9.5 %; Mean Corpuscular HGB Conc 32.3 g/dL (30.0-36.0); Mean Corpuscular Hemoglobin 30.2 pg (28.0-34.0); Mean Corpuscular Volume 93.3 fL (80-94); Mean Platelet Volume 9.5 fL (7.4-10.4); Monocytes # 0.6 10^3/uL (0.2-0.9); Monocytes % 10.9 %; Neutrophils # 3.78 10^3/uL (1.8-7.7); Neutrophils % 74.6 %; Nucleated Red Blood Cells % 0 %; Platelet Count 166 10^3/cmm (130-400); Red Blood Count 4.64 10^6/uL (4.1-5.3); Red Cell Distribution Width 13.7 % (12.1-15.1); White Blood Count 5.1 10^3/uL (4.0-10.0)
[2021-04-05 14:37] LABS: Alanine Aminotransferase 9 U/L (0-41); Albumin Level 3.9 g/dL (3.5-5.2); Alkaline Phosphatase 87 IU/L (40-130); Anion Gap 12.7 (5-19); Aspartate Amino Transferase 16 U/L (0-40); Blood Urea Nitrogen 16 mg/dL (8-23); Calcium 8.6 mg/dL (8.5-10.5); Carbon Dioxide 29 mmol/L (22-29); Chloride 105 mmol/L (98-107); Glucose 103 mg/dL (65-115); Osmolality Calculated 295 mOsm/kg (285-295); Potassium 4.7 mmol/L (3.5-5.1); Sodium 142 mmol/L (136-145); Total Bilirubin 0.7 mg/dL (0.15-1.2); Total Protein 5.9 g/dL (6.6-8.7)
== END 2021-04-05 06:55 | disposition home or self-care (01) ==
LOC: ONCMED 07:00
PROVIDERS: PCP Family Medicine; Visit Provider Internal Medicine Medical Oncology
DX: C82.10 Follicular lymphoma grade II, unspecified site (principal); Z79.899 Other long term (current) drug therapy
CPT/HCPCS: 36415; 80053; 85025

== ENCOUNTER 2021-05-02 05:36 | Outpatient (RCR) | payer MEDICARE, SELFPAY ==
[2021-04-11 14:37] LABS: Basophils % 0.4 %; Eosinophils # 0.2 10^3/uL (0.0-0.8); Eosinophils % 2.2 %; Hematocrit 42.1 % (42.0-52.0); Hemoglobin 13.9 g/dL (11.7-16.6); Lymphocytes # 0.9 10^3/uL (0.8-4.8); Lymphocytes % 12.7 %; Mean Corpuscular Hemoglobin 29.8 pg (28.0-34.0); Mean Corpuscular Volume 90.3 fL (80-94); Mean Platelet Volume 9.8 fL (7.4-10.4); Monocytes # 0.6 10^3/uL (0.2-0.9); Monocytes % 9.4 %; Neutrophils # 5.01 10^3/uL (1.8-7.7); Neutrophils % 74.9 %; Nucleated Red Blood Cells % 0 %; Platelet Count 178 10^3/cmm (130-400); Red Blood Count 4.66 10^6/uL (4.1-5.3); Red Cell Distribution Width 13.9 % (12.1-15.1); White Blood Count 6.7 10^3/uL (4.0-10.0)
[2021-04-11 14:58] LABS: Alanine Aminotransferase 7 U/L (0-41); Albumin Level 3.9 g/dL (3.5-5.2); Alkaline Phosphatase 83 IU/L (40-130); Anion Gap 11.4 (5-19); Aspartate Amino Transferase 16 U/L (0-40); Blood Urea Nitrogen 11 mg/dL (8-23); Calcium 8.4 mg/dL (8.5-10.5); Carbon Dioxide 28 mmol/L (22-29); Chloride 104 mmol/L (98-107); Globulin 2.3 g/dL (1.3-4.6); Glucose 94 mg/dL (65-115); Osmolality Calculated 287 mOsm/kg (285-295); Potassium 4.4 mmol/L (3.5-5.1); Sodium 139 mmol/L (136-145); Total Bilirubin 0.6 mg/dL (0.15-1.2); Total Protein 6.2 g/dL (6.6-8.7)
[2021-04-15 12:00] LABS: Basophils % 0.4 %; Eosinophils # 0.2 10^3/uL (0.0-0.8); Eosinophils % 4.1 %; Hematocrit 43.1 % (42.0-52.0); Hemoglobin 14.3 g/dL (11.7-16.6); Lymphocytes # 0.7 10^3/uL (0.8-4.8); Lymphocytes % 14.4 %; Mean Corpuscular HGB Conc 33.2 g/dL (30.0-36.0); Mean Corpuscular Hemoglobin 29.9 pg (28.0-34.0); Mean Platelet Volume 9.3 fL (7.4-10.4); Monocytes # 0.7 10^3/uL (0.2-0.9); Neutrophils # 3.09 10^3/uL (1.8-7.7); Neutrophils % 66.5 %; Nucleated Red Blood Cells % 0 %; Platelet Count 162 10^3/cmm (130-400); Red Blood Count 4.79 10^6/uL (4.1-5.3); Red Cell Distribution Width 13.5 % (12.1-15.1); White Blood Count 4.7 10^3/uL (4.0-10.0)
[2021-04-15 12:37] LABS: Alanine Aminotransferase 7 U/L (0-41); Albumin Level 3.9 g/dL (3.5-5.2); Alkaline Phosphatase 82 IU/L (40-130); Anion Gap 12.5 (5-19); Aspartate Amino Transferase 16 U/L (0-40); Blood Urea Nitrogen 16 mg/dL (8-23); Calcium 8.4 mg/dL (8.5-10.5); Carbon Dioxide 25 mmol/L (22-29); Chloride 102 mmol/L (98-107); Globulin 2.2 g/dL (1.3-4.6); Glucose 99 mg/dL (65-115); Osmolality Calculated 281 mOsm/kg (285-295); Potassium 4.5 mmol/L (3.5-5.1); Sodium 135 mmol/L (136-145); Total Bilirubin 0.8 mg/dL (0.15-1.2); Total Protein 6.1 g/dL (6.6-8.7)
--- NOTE | 2021-04-18 10:35 | ONC FU_ITS ---
Dr. Becerril Patient Follow-Up Note Patient: Sheng Barrios Unit #: [id number]: 1950 Dicatated By: Richie Becerril M.D.Date of Visit:Apr 18, 2021 Onc Med Follow-up/Prog Note Chief Complaint: Lymphoma. 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 He had presented with enlarged lymph nodes in the groin area on both sides and more significantly in the left axillary area. He had first become aware of the lymph node enlargement about [address] of the abdomen/pelvis on 09/10/2019 showed extensive lymphadenopathy including bilateral inguinal adenopathy measuring up to 18 mm on the left and up to 29 mm in the right, bilateral iliac chain lymphadenopathy measuring up to 2.0 cm on the left and 1.8 cm on the right, para-aortic and pericaval retroperitoneal lymphadenopathy measuring up to 2.5 cm, and central mesenteric lymphadenopathy measuring up to 10 mm. There was mild splenomegaly measuring 14.5 cm. Also noted was diffuse urinary bladder mild wall thickening and prostatic enlargement measuring 5.8 x 4.2 cm. He underwent ultrasound directed core needle biopsy of the right inguinal lymph node on 09/18/2019. Pathology showed malignant B-cell lymphoma consistent with grade 1-2 follicular center lymphoma. By immunoperoxidase the lymphoma cells were positive for CD20, BCL-2, and CD10. They were negative for MUM1 and cyclin D1. BL-6 showed equivocal staining in a few neoplastic follicles. CD3 and CD5 were noted to stain T cells. The Ki-67 showed less than 10% positive staining. He had medical oncology consultation at [facility] with Dr. Alexa Conley on 10/08/2019. The pathology was reviewed there with a diagnosis of follicular lymphoma, follicular pattern, grade 1-2. By flow cytometry the neoplastic cells were noted to be positive for CD10, CD19, CD20, CD23, CD45, FMC 7, and kappa. They were negative for CD5 and lambda. Staging PET/CT on on 11/14/2019 showed bilateral cervical adenopathy levels 1-4 within index conglomerate at the lower left cervical location with maximum SUV of 5.01. There was bilateral axillary adenopathy, more prominent on the left side with an index lesion measuring 6.0 x 4.5 cm, maximum SUV 11.34. There were multiple smaller mediastinal lymph nodes and there was extensive retroperitoneal lymphadenopathy extending into the pelvis involving common iliac, internal iliac, and external iliac lymph nodes and there were multiple bilateral inguinal lymph nodes. In the setting of low-grade lymphoma which was not overtly symptomatic, expectant management was recommended. I had seen him initially on 01/13/2020. Despite having a fairly bulky left axillary mass, he was not symptomatic with it, and we opted to just continue with observation/expectant management. He was seen for a follow-up visit on 01/19/2021. At that point there had been further enlargement of the left axillary mass, though he was still only minimally symptomatic with his only significant complaint being some discomfort associated with the mass, mainly when lying on his left side. Restaging CT scans of the chest, abdomen, and pelvis on 01/31/2021 showed progression of bulky left axillary lymphadenopathy with the largest node measuring 11 x 6.6 cm. Also noted was progressed subpectoral adenopathy, left greater than right, and progressed AP window lymphadenopathy. The abdomen/pelvis showed progressed adenopathy in the central mesentery abdomen and pelvis with enlarged lymph nodes noted along the central mesentery and SMA. There were additional enlarged mesenteric lymph nodes in the mid abdomen and left upper quadrant and there was masslike confluent periaortic retroperitoneal lymphadenopathy. There was interval development of partial obstruction of the traversing ureters bilaterally with mild pelvocaliectasis. There was additional progressed iliac and pelvic lymphadenopathy with the largest inguinal lymph node measuring up to 4.4 cm on the right. The prostate was again noted to be enlarged measuring 4.9 cm. With those findings, he was recommended to begin treatment with bendamustine in combination with rituximab. He has additional history of atrial fibrillation. He is on chronic anticoagulation with apixaban. He has no other medical illnesses. He has a history of smoking 1 pack of cigarettes daily, but he quit smoking sometime in the mid 1970s. INTERIM HISTORY: He began cycle 1 on 03/21/2021. The treatment was stopped during the rituximab infusion when he developed a generalized urticarial skin eruption. It resolved uneventfully on steroid/antihistamine therapy. He then returned on 03/28/2021 to restart cycle 1 of bendamustine/rituximab with the steroid premedication. He tolerated it with no adverse effects. He is seen now for a follow-up visit. He has been feeling good generally. He has had a dramatic decrease in his peripheral lymphadenopathy. He has had some mild fatigue, but his energy is still pretty good, and he still has normal activity. ECOG score 0. Appetite is good. He has not had fever. He says he may have a little bit of sweating at night, but that could just be weather related. He has had no mouth sores. He has no shortness of breath, cough, or chest pain. He has no GI/ complaints other than some constipation. He has no significant joint or bone pain. He does not complain of headache or dizziness. He has no focal neurologic symptoms. Medications: Eliquis 1 Tablet (of 5 mg) Oral b.i.d., Metoprolol Tartrate 1 Tablet (of 25 mg) Oral b.i.d., Multivitamin Adult 1 Tablet Oral daily, Vitamin C 1 Capsule Oral b.i.d. Allergies: No Known Allergies. Vital Signs: Performed on Apr 18, 2021 08:57 Height - 73.00 in Weight - 197.2 lbs (LOW) BSA - 2.14 sq.m BMI - 26.02 Temperature - 97.6 F (LOW) Pulse - 61 /min Respiration - 18 /min BP - 131/74 mm(hg) O2 Sat - 99 % Pain - 0 Fatigue - 0 Physical Examination: Constitutional - He looks good generally, Eyes - Sclerae nonicteric. Conjunctivae clear, ENMT - No lesions noted in the oral cavity, Hematologic/Lymphatic - There is just a very small residual left axillary lymph node. There is no other adenopathy noted in the neck or axillae, Respiratory - Lungs are clear with good air movement bilaterally, Cardiovascular - Heart rhythm is regular. There is no murmur, gallop, or rub noted, Abdomen - Soft. Liver and spleen are not enlarged. There is no abdominal mass or ascites noted. The inguinal adenopathy has also resolved, Extremities - No edema, Neurologic - No focal neurologic deficits noted. Lab/Imaging: Test performed on Apr 15, 2021 11:30 WBC 4.7 10 3/uL RBC 4.79 10 6/uL HGB 14.3 g/dL HCT 43.1 % MCV 90.0 fL MCH 29.9 pg MCHC 33.2 g/dL RDW 13.5 % Platelet Count 162 10 3/cmm MPV 9.3 fL Neutrophils 3.09 10 3/uL Lymphocytes 0.7 10 3/uL Monocytes 0.7 10 3/uL Eosinophils 0.2 10 3/uL Basophils 0.0 10 3/uL Neutrophil % 66.5 % Lymphocyte % 14.4 % Monocyte % 14.0 % Eosinophil % 4.1 % Basophils % 0.4 % NRBC % 0 % Test performed on Apr 15, 2021 11:28 Sodium 135 mmol/L Potassium 4.5 mmol/L Chloride 102 mmol/L CO2 25 mmol/L Anion Gap 12.5 BUN 16 mg/dL Creatinine 0.7 mg/dL Cr Clearance (Est) 127.6800 mL/min Glucose 99 mg/dL Osmolality - Calculated 281 mOsm/kg Calcium 8.4 mg/dL Protein, Total 6.1 g/dL Albumin 3.9 g/dL Globulin 2.2 g/dL Bilirubin, Total 0.8 mg/dL ALT (SGPT) 7 U/L AST (SGOT) 16 U/L Alkaline Phosphatase 82 IU/L Problem List: 1. Follicular lymphoma, grade 1-2, stage at least III, but not overtly symptomatic. 2. Paroxysmal atrial fibrillation. 3. 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 He had uneventful recovery. Problems Addressed with this Encounter and Plan: Patient withi follicular lymphoma, grade 1-2, stage at least III, but not overtly symptomatic. At presentation in September 2019 he had generalized lymphadenopathy, including a bulky left axillary mass. Core needle biopsy of a right inguinal lymph node on 09/18/2019 showed malignant B-cell lymphoma consistent with grade 1-2 follicular center lymphoma. As he was not symptomatic, he initially began on expectant management. During follow-up there was further enlargement of the bulky left axillary mass and his restaging CT scans on 01/31/2021 also showed significant disease progression in the abdomen/pelvis. There was associated development of partial ureteral obstruction with mild pelvocaliectasis and ureterectasis from masslike periaortic confluent lymphadenopathy. With those findings he was recommended to undergo treatment with bendamustine/rituximab. He began cycle 1 on 03/21/2021. His treatment was interrupted during the rituximab infusion due to development of a generalized urticarial eruption. He has had complete recovery. He then returned on 03/28/2021 to restart cycle 1 of bendamustine/rituximab with steroid premedication. He tolerated it with no adverse effects. By clinical evaluation he has had a very significant response. He returns in 1 week to begin cycle 2 of bendamustine/rituximab. The dosages will remain the same. Blood counts will be monitored weekly. He will then have a follow-up visit at a 4-week interval. If he continues to tolerate the treatment well, I will plan to stop after 4 cycles and transition to maintenance rituximab. Signed By: Richie Becerril M.D. <<Signature on File>>
[2021-04-25 08:58] LABS: Basophils % 0.2 %; Eosinophils # 0.2 10^3/uL (0.0-0.8); Eosinophils % 4.2 %; Hemoglobin 14.3 g/dL (11.7-16.6); Lymphocytes # 0.6 10^3/uL (0.8-4.8); Lymphocytes % 12.5 %; Mean Corpuscular HGB Conc 33.3 g/dL (30.0-36.0); Mean Corpuscular Volume 90.1 fL (80-94); Mean Platelet Volume 9.3 fL (7.4-10.4); Monocytes # 0.5 10^3/uL (0.2-0.9); Monocytes % 10.6 %; Neutrophils # 3.38 10^3/uL (1.8-7.7); Neutrophils % 71.9 %; Nucleated Red Blood Cells % 0 %; Platelet Count 145 10^3/cmm (130-400); Red Blood Count 4.77 10^6/uL (4.1-5.3); Red Cell Distribution Width 13.6 % (12.1-15.1); White Blood Count 4.7 10^3/uL (4.0-10.0)
[2021-04-25] MEDS: ondansetron 2 mg/ML SDV 2 mL 8 MG IVP (09:37)
[2021-04-25] MEDS: sodium chloride 0.9% 250 ML 999 ML IV (09:37)
[2021-04-25] MEDS: diphenhydrAMINE 50 mg/mL SDV 1mL 25 MG IVP (09:39)
[2021-04-25] MEDS: acetaminophen 325 mg Tablet 650 MG PO (09:45)
[2021-04-26] MEDS: palonosetron 0.25 mg/5 mL SDV IV (12:28)
[2021-04-26] MEDS: sodium chloride 0.9% (100 ml) 100 ML 75 ML (12:30)
[2021-05-02 13:18] LABS: Basophils % 0.4 %; Eosinophils # 0.2 10^3/uL (0.0-0.8); Eosinophils % 3.7 %; Hematocrit 42.5 % (42.0-52.0); Hemoglobin 14.4 g/dL (11.7-16.6); Lymphocytes # 0.2 10^3/uL (0.8-4.8); Lymphocytes % 4.3 %; Mean Corpuscular HGB Conc 33.9 g/dL (30.0-36.0); Mean Corpuscular Hemoglobin 30.7 pg (28.0-34.0); Mean Corpuscular Volume 90.6 fL (80-94); Mean Platelet Volume 9.3 fL (7.4-10.4); Monocytes # 0.5 10^3/uL (0.2-0.9); Monocytes % 9.2 %; Neutrophils # 4.14 10^3/uL (1.8-7.7); Neutrophils % 81.4 %; Nucleated Red Blood Cells % 0 %; Platelet Count 159 10^3/cmm (130-400); Red Blood Count 4.69 10^6/uL (4.1-5.3); Red Cell Distribution Width 13.6 % (12.1-15.1); White Blood Count 5.1 10^3/uL (4.0-10.0)
== END 2021-05-04 23:59 | disposition home or self-care (01) ==
LOC: ONCMED 05:36
PROVIDERS: Internal Medicine Hematology & Oncology; PCP Family Medicine; Visit Provider Internal Medicine Medical Oncology
DX: Z51.12 Encounter for antineoplastic immunotherapy (principal); Z51.11 Encounter for antineoplastic chemotherapy; C82.18 Follicular lymphoma grade II, lymph nodes of multiple sites; I48.0 Paroxysmal atrial fibrillation; Z79.01 Long term (current) use of anticoagulants; Z87.891 Personal history of nicotine dependence
CPT/HCPCS: 36415; 80053; 85025; 96367; 96375; 96413; 96415; 96417; 99214; J1100; J1200; J2405; J2469; J2930; J7040; J7050; J9034; J9312

== ENCOUNTER 2021-05-23 05:49 | Outpatient (RCR) | payer MEDICARE, SELFPAY ==
[2021-05-10 10:48] LABS: Basophils % 0.5 %; Eosinophils # 0.2 10^3/uL (0.0-0.8); Eosinophils % 3.9 %; Hematocrit 40.5 % (42.0-52.0); Hemoglobin 13.7 g/dL (11.7-16.6); Lymphocytes # 0.4 10^3/uL (0.8-4.8); Lymphocytes % 9.6 %; Mean Corpuscular HGB Conc 33.8 g/dL (30.0-36.0); Mean Corpuscular Hemoglobin 30.4 pg (28.0-34.0); Mean Platelet Volume 9.1 fL (7.4-10.4); Monocytes # 0.5 10^3/uL (0.2-0.9); Monocytes % 12.1 %; Neutrophils # 2.83 10^3/uL (1.8-7.7); Neutrophils % 73.1 %; Nucleated Red Blood Cells % 0 %; Platelet Count 143 10^3/cmm (130-400); Red Cell Distribution Width 13.9 % (12.1-15.1); White Blood Count 3.9 10^3/uL (4.0-10.0)
[2021-05-16 11:31] LABS: Basophils % 0.7 %; Eosinophils # 0.1 10^3/uL (0.0-0.8); Eosinophils % 4.6 %; Hematocrit 40.8 % (42.0-52.0); Hemoglobin 13.7 g/dL (11.7-16.6); Lymphocytes # 0.4 10^3/uL (0.8-4.8); Lymphocytes % 11.8 %; Mean Corpuscular HGB Conc 33.6 g/dL (30.0-36.0); Mean Corpuscular Hemoglobin 30.4 pg (28.0-34.0); Mean Corpuscular Volume 90.7 fL (80-94); Mean Platelet Volume 9.5 fL (7.4-10.4); Monocytes # 0.5 10^3/uL (0.2-0.9); Monocytes % 16.4 %; Neutrophils # 1.99 10^3/uL (1.8-7.7); Neutrophils % 65.2 %; Nucleated Red Blood Cells % 0 %; Platelet Count 144 10^3/cmm (130-400); Red Cell Distribution Width 13.9 % (12.1-15.1); White Blood Count 3.1 10^3/uL (4.0-10.0)
[2021-05-23 08:34] LABS: Basophils % 0.7 %; Eosinophils # 0.1 10^3/uL (0.0-0.8); Eosinophils % 4.3 %; Hemoglobin 13.9 g/dL (11.7-16.6); Lymphocytes # 0.3 10^3/uL (0.8-4.8); Lymphocytes % 12.1 %; Mean Corpuscular HGB Conc 33.9 g/dL (30.0-36.0); Mean Corpuscular Hemoglobin 30.6 pg (28.0-34.0); Mean Corpuscular Volume 90.3 fL (80-94); Mean Platelet Volume 9.3 fL (7.4-10.4); Monocytes # 0.4 10^3/uL (0.2-0.9); Monocytes % 14.5 %; Neutrophils % 67.3 %; Nucleated Red Blood Cells % 0 %; Platelet Count 138 10^3/cmm (130-400); Red Blood Count 4.54 10^6/uL (4.1-5.3); Red Cell Distribution Width 14.1 % (12.1-15.1); White Blood Count 2.8 10^3/uL (4.0-10.0)
[2021-05-23 09:17] LABS: Alanine Aminotransferase 9 U/L (0-41); Albumin Level 3.9 g/dL (3.5-5.2); Alkaline Phosphatase 80 IU/L (40-130); Anion Gap 12.2 (5-19); Aspartate Amino Transferase 19 U/L (0-40); Blood Urea Nitrogen 10 mg/dL (8-23); Calcium 8.3 mg/dL (8.5-10.5); Carbon Dioxide 25 mmol/L (22-29); Chloride 108 mmol/L (98-107); Globulin 1.9 g/dL (1.3-4.6); Glucose 104 mg/dL (65-115); Lactate Dehydrogenase 224 U/L (135-225); Osmolality Calculated 291 mOsm/kg (285-295); Potassium 4.2 mmol/L (3.5-5.1); Sodium 141 mmol/L (136-145); Total Bilirubin 0.5 mg/dL (0.15-1.2); Total Protein 5.8 g/dL (6.6-8.7)
--- NOTE | 2021-05-24 17:31 | ONC FU_ITS ---
Dr. Becerril Patient Follow-Up Note Patient: Sheng Barrios Unit #: [id number]: 1950 Dicatated By: Richie Becerril M.D.Date of Visit:May 23, 2021 Onc Med Follow-up/Prog Note Chief Complaint: Lymphoma. 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 He had presented with enlarged lymph nodes in the groin area on both sides and more significantly in the left axillary area. He had first become aware of the lymph node enlargement about [address] of the abdomen/pelvis on 09/10/2019 showed extensive lymphadenopathy including bilateral inguinal adenopathy measuring up to 18 mm on the left and up to 29 mm in the right, bilateral iliac chain lymphadenopathy measuring up to 2.0 cm on the left and 1.8 cm on the right, para-aortic and pericaval retroperitoneal lymphadenopathy measuring up to 2.5 cm, and central mesenteric lymphadenopathy measuring up to 10 mm. There was mild splenomegaly measuring 14.5 cm. Also noted was diffuse urinary bladder mild wall thickening and prostatic enlargement measuring 5.8 x 4.2 cm. He underwent ultrasound directed core needle biopsy of the right inguinal lymph node on 09/18/2019. Pathology showed malignant B-cell lymphoma consistent with grade 1-2 follicular center lymphoma. By immunoperoxidase the lymphoma cells were positive for CD20, BCL-2, and CD10. They were negative for MUM1 and cyclin D1. BL-6 showed equivocal staining in a few neoplastic follicles. CD3 and CD5 were noted to stain T cells. The Ki-67 showed less than 10% positive staining. He had medical oncology consultation at [facility] with Dr. Alexa Conley on 10/08/2019. The pathology was reviewed there with a diagnosis of follicular lymphoma, follicular pattern, grade 1-2. By flow cytometry the neoplastic cells were noted to be positive for CD10, CD19, CD20, CD23, CD45, FMC 7, and kappa. They were negative for CD5 and lambda. Staging PET/CT on on 11/14/2019 showed bilateral cervical adenopathy levels 1-4 within index conglomerate at the lower left cervical location with maximum SUV of 5.01. There was bilateral axillary adenopathy, more prominent on the left side with an index lesion measuring 6.0 x 4.5 cm, maximum SUV 11.34. There were multiple smaller mediastinal lymph nodes and there was extensive retroperitoneal lymphadenopathy extending into the pelvis involving common iliac, internal iliac, and external iliac lymph nodes and there were multiple bilateral inguinal lymph nodes. In the setting of low-grade lymphoma which was not overtly symptomatic, expectant management was recommended. I had seen him initially on 01/13/2020. Despite having a fairly bulky left axillary mass, he was not symptomatic with it, and we opted to just continue with observation/expectant management. He was seen for a follow-up visit on 01/19/2021. At that point there had been further enlargement of the left axillary mass, though he was still only minimally symptomatic with his only significant complaint being some discomfort associated with the mass, mainly when lying on his left side. Restaging CT scans of the chest, abdomen, and pelvis on 01/31/2021 showed progression of bulky left axillary lymphadenopathy with the largest node measuring 11 x 6.6 cm. Also noted was progressed subpectoral adenopathy, left greater than right, and progressed AP window lymphadenopathy. The abdomen/pelvis showed progressed adenopathy in the central mesentery abdomen and pelvis with enlarged lymph nodes noted along the central mesentery and SMA. There were additional enlarged mesenteric lymph nodes in the mid abdomen and left upper quadrant and there was masslike confluent periaortic retroperitoneal lymphadenopathy. There was interval development of partial obstruction of the traversing ureters bilaterally with mild pelvocaliectasis. There was additional progressed iliac and pelvic lymphadenopathy with the largest inguinal lymph node measuring up to 4.4 cm on the right. The prostate was again noted to be enlarged measuring 4.9 cm. With those findings, he was recommended to begin treatment with bendamustine in combination with rituximab. He has additional history of atrial fibrillation. He is on chronic anticoagulation with apixaban. He has no other medical illnesses. He has a history of smoking 1 pack of cigarettes daily, but he quit smoking sometime in the mid 1970s. INTERIM HISTORY: He began cycle 1 on 03/21/2021. The treatment was stopped during the rituximab infusion when he developed a generalized urticarial skin eruption. It resolved uneventfully on steroid/antihistamine therapy. He then returned on 03/28/2021 to restart cycle 1 of bendamustine/rituximab with the steroid premedication. He tolerated it with no adverse effects. At his follow-up visit on 04/18/2021 he was doing well clinically and he appeared to be showing you very good response to the chemotherapy. He then returned and continued with cycle 2 of bendamustine/rituximab on 04/25/2021. He is seen for a follow-up visit. He has been feeling good generally. He has had some fatigue since starting chemotherapy, but he still has normal activity. ECOG score is 0. His appetite is good. He has no fever or night sweats. He has had no mouth sores. He has no shortness of breath, cough, or chest pain. He has no GI or complaints. He has no significant joint or bone pain. He does not complain of headache or dizziness, and he has no focal neurologic symptoms. Medications: Eliquis 1 Tablet (of 5 mg) Oral b.i.d., Metoprolol Tartrate 1 Tablet (of 25 mg) Oral b.i.d., Multivitamin Adult 1 Tablet Oral daily, Vitamin C 1 Capsule Oral b.i.d. Allergies: No Known Allergies. Vital Signs: Performed on May 23, 2021 10:54 Height - 73.00 in Weight - 199.4 lbs (HIGH) BSA - 2.15 sq.m BMI - 26.31 Temperature - 97.1 F (LOW) Pulse - 59 /min (LOW) Respiration - 18 /min BP - 129/75 mm(hg) O2 Sat - 98 % Pain - 0 Fatigue - 0 Physical Examination: Constitutional - He looks good generally, Eyes - Sclerae nonicteric. Conjunctivae clear, ENMT - No lesions noted in the oral cavity, Hematologic/Lymphatic - There is just a very small residual left axillary lymph node, measuring approximately 1 cm. There is no other adenopathy noted in the neck or axillae, Respiratory - Lungs are clear with good air movement bilaterally, Cardiovascular - Heart rhythm is regular. There is no murmur, gallop, or rub noted, Abdomen - Soft and non-tender. Liver and spleen are not enlarged. There is no abdominal mass or ascites noted and there is no inguinal adenopathy noted, Extremities - No edema, Neurologic - No focal neurologic deficits noted. Lab/Imaging: Test performed on May 23, 2021 08:14 LDH (Total) 224 U/L Sodium 141 mmol/L Potassium 4.2 mmol/L Chloride 108 mmol/L CO2 25 mmol/L Anion Gap 12.2 BUN 10 mg/dL Creatinine 0.7 mg/dL Cr Clearance (Est) 127.6800 mL/min Glucose 104 mg/dL Osmolality - Calculated 291 mOsm/kg Calcium 8.3 mg/dL Protein, Total 5.8 g/dL Albumin 3.9 g/dL Globulin 1.9 g/dL Bilirubin, Total 0.5 mg/dL ALT (SGPT) 9 U/L AST (SGOT) 19 U/L Alkaline Phosphatase 80 IU/L WBC 2.8 10 3/uL RBC 4.54 10 6/uL HGB 13.9 g/dL HCT 41.0 % MCV 90.3 fL MCH 30.6 pg MCHC 33.9 g/dL RDW 14.1 % Platelet Count 138 10 3/cmm MPV 9.3 fL Neutrophils 1.90 10 3/uL Lymphocytes 0.3 10 3/uL Monocytes 0.4 10 3/uL Eosinophils 0.1 10 3/uL Basophils 0.0 10 3/uL Neutrophil % 67.3 % Lymphocyte % 12.1 % Monocyte % 14.5 % Eosinophil % 4.3 % Basophils % 0.7 % NRBC % 0 % Problem List: 1. Follicular lymphoma, grade 1-2, stage at least III, but not overtly symptomatic. 2. Paroxysmal atrial fibrillation. 3. 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 He had uneventful recovery. Problems Addressed with this Encounter and Plan: Patient withi follicular lymphoma, grade 1-2, stage at least III, but not overtly symptomatic. At presentation in September 2019 he had generalized lymphadenopathy, including a bulky left axillary mass. Core needle biopsy of a right inguinal lymph node on 09/18/2019 showed malignant B-cell lymphoma consistent with grade 1-2 follicular center lymphoma. As he was not symptomatic, he initially began on expectant management. During follow-up there was further enlargement of the bulky left axillary mass and his restaging CT scans on 01/31/2021 also showed significant disease progression in the abdomen/pelvis. There was associated development of partial ureteral obstruction with mild pelvocaliectasis and ureterectasis from masslike periaortic confluent lymphadenopathy. With those findings he was recommended to undergo treatment with bendamustine/rituximab. He began cycle 1 on 03/21/2021. His treatment was interrupted during the rituximab infusion due to development of a generalized urticarial eruption. He has had complete recovery. He then returned on 03/28/2021 to restart cycle 1 of bendamustine/rituximab with steroid premedication. He tolerated it with no adverse effects and by clinical evaluation he appeared to have a very significant response. He continued with cycle 2 on 04/25/2021. He again tolerated that treatment with no adverse effects. He still seems to be doing very well clinically, but he has moderately severe neutropenia. As such, his treatment will be delayed. He will tentatively be scheduled to return in 2 weeks. If his CBC shows adequate recovery he will then continue with cycle 3 of bendamustine/rituximab at the same dosages. Signed By: Richie Becerril M.D. <<Signature on File>>
== END 2021-06-04 23:59 | disposition home or self-care (01) ==
LOC: ONCMED 05:49
PROVIDERS: PCP Family Medicine; Visit Provider Internal Medicine Medical Oncology
DX: C82.18 Follicular lymphoma grade II, lymph nodes of multiple sites (principal); I48.0 Paroxysmal atrial fibrillation; G51.0 Bell's palsy; Z86.19 Personal history of other infectious and parasitic diseases; Z79.899 Other long term (current) drug therapy; Z92.21 Personal history of antineoplastic chemotherapy
CPT/HCPCS: 36415; 80053; 83615; 85025; 99214

== ENCOUNTER 2021-07-04 05:28 | Outpatient (RCR) | payer MEDICARE, SELFPAY ==
[2021-06-06 08:49] LABS: Basophils % 0.6 %; Eosinophils # 0.1 10^3/uL (0.0-0.8); Eosinophils % 2.7 %; Hematocrit 40.5 % (42.0-52.0); Hemoglobin 13.8 g/dL (11.7-16.6); Lymphocytes # 0.4 10^3/uL (0.8-4.8); Lymphocytes % 10.4 %; Mean Corpuscular HGB Conc 34.1 g/dL (30.0-36.0); Mean Corpuscular Hemoglobin 30.9 pg (28.0-34.0); Mean Corpuscular Volume 90.6 fL (80-94); Mean Platelet Volume 9.4 fL (7.4-10.4); Monocytes # 0.4 10^3/uL (0.2-0.9); Monocytes % 11.9 %; Neutrophils # 2.46 10^3/uL (1.8-7.7); Neutrophils % 73.5 %; Nucleated Red Blood Cells % 0 %; Platelet Count 158 10^3/cmm (130-400); Red Blood Count 4.47 10^6/uL (4.1-5.3); Red Cell Distribution Width 14.1 % (12.1-15.1); White Blood Count 3.4 10^3/uL (4.0-10.0)
[2021-06-06 09:15] LABS: Alanine Aminotransferase 11 U/L (0-41); Albumin Level 3.9 g/dL (3.5-5.2); Alkaline Phosphatase 83 IU/L (40-130); Anion Gap 12.1 (5-19); Aspartate Amino Transferase 26 U/L (0-40); Blood Urea Nitrogen 11 mg/dL (8-23); Calcium 8.4 mg/dL (8.5-10.5); Carbon Dioxide 26 mmol/L (22-29); Chloride 106 mmol/L (98-107); Globulin 1.9 g/dL (1.3-4.6); Glucose 97 mg/dL (65-115); Osmolality Calculated 289 mOsm/kg (285-295); Potassium 4.1 mmol/L (3.5-5.1); Sodium 140 mmol/L (136-145); Total Bilirubin 0.6 mg/dL (0.15-1.2); Total Protein 5.8 g/dL (6.6-8.7)
[2021-06-06] MEDS: acetaminophen 325 mg Tablet 650 MG PO (10:35)
[2021-06-06] MEDS: sodium chloride 0.9% 250 ML 999 ML IV (10:36)
[2021-06-06] MEDS: diphenhydrAMINE 50 mg/mL SDV 1mL 25 MG IVP (10:36)
[2021-06-06] MEDS: ondansetron 2 mg/ML SDV 2 mL 8 MG IVP (10:38)
[2021-06-07] MEDS: palonosetron 0.25 mg/5 mL SDV IVP (13:34)
[2021-06-07] MEDS: sodium chloride 0.9% 250 ML 999 ML IV (13:34)
--- NOTE | 2021-06-10 12:26 | ONC FU_ITS ---
Dr. Becerril Patient Follow-Up Note Patient: Sheng Barrios Unit #: [id number]: 1950 Dicatated By: Richie Becerril M.D.Date of Visit:Jun 06, 2021 Onc Med Follow-up/Prog Note Chief Complaint: Lymphoma. 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 He had presented with enlarged lymph nodes in the groin area on both sides and more significantly in the left axillary area. He had first become aware of the lymph node enlargement about [address] of the abdomen/pelvis on 09/10/2019 showed extensive lymphadenopathy including bilateral inguinal adenopathy measuring up to 18 mm on the left and up to 29 mm in the right, bilateral iliac chain lymphadenopathy measuring up to 2.0 cm on the left and 1.8 cm on the right, para-aortic and pericaval retroperitoneal lymphadenopathy measuring up to 2.5 cm, and central mesenteric lymphadenopathy measuring up to 10 mm. There was mild splenomegaly measuring 14.5 cm. Also noted was diffuse urinary bladder mild wall thickening and prostatic enlargement measuring 5.8 x 4.2 cm. He underwent ultrasound directed core needle biopsy of the right inguinal lymph node on 09/18/2019. Pathology showed malignant B-cell lymphoma consistent with grade 1-2 follicular center lymphoma. By immunoperoxidase the lymphoma cells were positive for CD20, BCL-2, and CD10. They were negative for MUM1 and cyclin D1. BL-6 showed equivocal staining in a few neoplastic follicles. CD3 and CD5 were noted to stain T cells. The Ki-67 showed less than 10% positive staining. He had medical oncology consultation at [facility] with Dr. Alexa Conley on 10/08/2019. The pathology was reviewed there with a diagnosis of follicular lymphoma, follicular pattern, grade 1-2. By flow cytometry the neoplastic cells were noted to be positive for CD10, CD19, CD20, CD23, CD45, FMC 7, and kappa. They were negative for CD5 and lambda. Staging PET/CT on on 11/14/2019 showed bilateral cervical adenopathy levels 1-4 within index conglomerate at the lower left cervical location with maximum SUV of 5.01. There was bilateral axillary adenopathy, more prominent on the left side with an index lesion measuring 6.0 x 4.5 cm, maximum SUV 11.34. There were multiple smaller mediastinal lymph nodes and there was extensive retroperitoneal lymphadenopathy extending into the pelvis involving common iliac, internal iliac, and external iliac lymph nodes and there were multiple bilateral inguinal lymph nodes. In the setting of low-grade lymphoma which was not overtly symptomatic, expectant management was recommended. I had seen him initially on 01/13/2020. Despite having a fairly bulky left axillary mass, he was not symptomatic with it, and we opted to just continue with observation/expectant management. He was seen for a follow-up visit on 01/19/2021. At that point there had been further enlargement of the left axillary mass, though he was still only minimally symptomatic with his only significant complaint being some discomfort associated with the mass, mainly when lying on his left side. Restaging CT scans of the chest, abdomen, and pelvis on 01/31/2021 showed progression of bulky left axillary lymphadenopathy with the largest node measuring 11 x 6.6 cm. Also noted was progressed subpectoral adenopathy, left greater than right, and progressed AP window lymphadenopathy. The abdomen/pelvis showed progressed adenopathy in the central mesentery abdomen and pelvis with enlarged lymph nodes noted along the central mesentery and SMA. There were additional enlarged mesenteric lymph nodes in the mid abdomen and left upper quadrant and there was masslike confluent periaortic retroperitoneal lymphadenopathy. There was interval development of partial obstruction of the traversing ureters bilaterally with mild pelvocaliectasis. There was additional progressed iliac and pelvic lymphadenopathy with the largest inguinal lymph node measuring up to 4.4 cm on the right. The prostate was again noted to be enlarged measuring 4.9 cm. With those findings, he was recommended to begin treatment with bendamustine in combination with rituximab. He has additional history of atrial fibrillation. He is on chronic anticoagulation with apixaban. He has no other medical illnesses. He has a history of smoking 1 pack of cigarettes daily, but he quit smoking sometime in the mid 1970s. INTERIM HISTORY: He began cycle 1 on 03/21/2021. The treatment was stopped during the rituximab infusion when he developed a generalized urticarial skin eruption. It resolved uneventfully on steroid/antihistamine therapy. He then returned on 03/28/2021 to restart cycle 1 of bendamustine/rituximab with the steroid premedication. He tolerated it with no adverse effects. At his follow-up visit on 04/18/2021 he was doing well clinically and he appeared to be showing you very good response to the chemotherapy. He then returned and continued with cycle 2 of bendamustine/rituximab on 04/25/2021. His cycle 3 was delayed due to neutropenia. He is seen for a follow-up visit. He has been feeling good generally. He has no significant complaints at this time. Medications: Eliquis 1 Tablet (of 5 mg) Oral b.i.d., Metoprolol Tartrate 1 Tablet (of 25 mg) Oral b.i.d., Multivitamin Adult 1 Tablet Oral daily, Vitamin C 1 Capsule Oral b.i.d. Allergies: No Known Allergies. Vital Signs: Performed on Jun 06, 2021 09:53 Height - 73.00 in Weight - 198.4 lbs (LOW) BSA - 2.14 sq.m BMI - 26.18 Temperature - 97.2 F (LOW) Pulse - 56 /min (LOW) Respiration - 18 /min BP - 130/73 mm(hg) O2 Sat - 98 % Pain - 0 Fatigue - 0 Physical Examination: Constitutional - He looks good generally, Eyes - Sclerae nonicteric. Conjunctivae clear, ENMT - No lesions noted in the oral cavity, Hematologic/Lymphatic - There is a small residual left axillary lymph node, measuring approximately 1 cm. There is no other adenopathy noted in the neck or axillae, Respiratory - Lungs are clear with good air movement bilaterally, Cardiovascular - Heart rhythm is regular. There is no murmur, gallop, or rub noted, Abdomen - Soft. Liver and spleen are not enlarged. There is no abdominal mass or ascites noted and there is no inguinal adenopathy noted, Extremities - No edema, Integumentary - There is an actinic lesion on the left side of the forehead, Neurologic - No focal neurologic deficits noted. Lab/Imaging: Test performed on Jun 06, 2021 08:21 Sodium 140 mmol/L Potassium 4.1 mmol/L Chloride 106 mmol/L CO2 26 mmol/L Anion Gap 12.1 BUN 11 mg/dL Creatinine 0.8 mg/dL Cr Clearance (Est) 111.7200 mL/min Glucose 97 mg/dL Osmolality - Calculated 289 mOsm/kg Calcium 8.4 mg/dL Protein, Total 5.8 g/dL Albumin 3.9 g/dL Globulin 1.9 g/dL Bilirubin, Total 0.6 mg/dL ALT (SGPT) 11 U/L AST (SGOT) 26 U/L Alkaline Phosphatase 83 IU/L WBC 3.4 10 3/uL RBC 4.47 10 6/uL HGB 13.8 g/dL HCT 40.5 % MCV 90.6 fL MCH 30.9 pg MCHC 34.1 g/dL RDW 14.1 % Platelet Count 158 10 3/cmm MPV 9.4 fL Neutrophils 2.46 10 3/uL Lymphocytes 0.4 10 3/uL Monocytes 0.4 10 3/uL Eosinophils 0.1 10 3/uL Basophils 0.0 10 3/uL Neutrophil % 73.5 % Lymphocyte % 10.4 % Monocyte % 11.9 % Eosinophil % 2.7 % Basophils % 0.6 % NRBC % 0 % Problem List: 1. Follicular lymphoma, grade 1-2, stage at least III, but not overtly symptomatic. 2. Paroxysmal atrial fibrillation. 3. 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 He had uneventful recovery. Problems Addressed with this Encounter and Plan: Patient withi follicular lymphoma, grade 1-2, stage at least III, but not overtly symptomatic. At presentation in September 2019 he had generalized lymphadenopathy, including a bulky left axillary mass. Core needle biopsy of a right inguinal lymph node on 09/18/2019 showed malignant B-cell lymphoma consistent with grade 1-2 follicular center lymphoma. As he was not symptomatic, he initially began on expectant management. During follow-up there was further enlargement of the bulky left axillary mass and his restaging CT scans on 01/31/2021 also showed significant disease progression in the abdomen/pelvis. There was associated development of partial ureteral obstruction with mild pelvocaliectasis and ureterectasis from masslike periaortic confluent lymphadenopathy. With those findings he was recommended to undergo treatment with bendamustine/rituximab. He began cycle 1 on 03/21/2021. His treatment was interrupted during the rituximab infusion due to development of a generalized urticarial eruption. He has had complete recovery. He then returned on 03/28/2021 to restart cycle 1 of bendamustine/rituximab with steroid premedication. He tolerated it with no adverse effects and by clinical evaluation he appeared to have a very significant response. He continued with cycle 2 on 04/25/2021. He again tolerated that treatment with no adverse effects. His further treatment was then delayed due to neutropenia. He has now had adequate recovery and he will proceed with cycle 3 of bendamustine/rituximab. Due to the neutropenia, the bendamustine will be administered with a 20% dose reduction. He will be scheduled for a follow-up visit in 4 weeks. In the meantime, I will also will arrange for referral to Dr. Mesa for management of actinic keratoses. Signed By: Richie Becerril M.D. <<Signature on File>>
[2021-06-13 11:51] LABS: Basophils % 0.8 %; Eosinophils # 0.1 10^3/uL (0.0-0.8); Eosinophils % 2.8 %; Hematocrit 43.5 % (42.0-52.0); Hemoglobin 14.9 g/dL (11.7-16.6); Lymphocytes # 0.2 10^3/uL (0.8-4.8); Lymphocytes % 6.1 %; Mean Corpuscular HGB Conc 34.3 g/dL (30.0-36.0); Mean Corpuscular Hemoglobin 31.2 pg (28.0-34.0); Mean Platelet Volume 9.4 fL (7.4-10.4); Monocytes # 0.5 10^3/uL (0.2-0.9); Monocytes % 14.4 %; Neutrophils # 2.63 10^3/uL (1.8-7.7); Neutrophils % 72.6 %; Nucleated Red Blood Cells % 0 %; Platelet Count 165 10^3/cmm (130-400); Red Blood Count 4.78 10^6/uL (4.1-5.3); Red Cell Distribution Width 14.2 % (12.1-15.1); White Blood Count 3.6 10^3/uL (4.0-10.0)
[2021-06-20 11:56] LABS: Basophils % 0.6 %; Eosinophils # 0.1 10^3/uL (0.0-0.8); Eosinophils % 2.8 %; Hematocrit 41.2 % (42.0-52.0); Hemoglobin 13.9 g/dL (11.7-16.6); Lymphocytes # 0.3 10^3/uL (0.8-4.8); Lymphocytes % 9.1 %; Mean Corpuscular HGB Conc 33.7 g/dL (30.0-36.0); Mean Corpuscular Hemoglobin 30.9 pg (28.0-34.0); Mean Corpuscular Volume 91.6 fl (80-94); Mean Platelet Volume 9.2 fL (7.4-10.4); Monocytes # 0.6 10^3/uL (0.2-0.9); Monocytes % 16.2 %; Neutrophils # 2.44 10^3/uL (1.8-7.7); Neutrophils % 69.6 %; Nucleated Red Blood Cells % 0 %; Platelet Count 142 10^3/cmm (130-400); Red Cell Distribution Width 14.1 % (12.1-15.1); White Blood Count 3.5 10^3/uL (4.0-10.0)
[2021-06-27 12:10] LABS: Basophils % 0.9 %; Eosinophils # 0.1 10^3/uL (0.0-0.8); Eosinophils % 2.8 %; Hematocrit 40.7 % (42.0-52.0); Hemoglobin 13.8 g/dL (11.7-16.6); Lymphocytes # 0.3 10^3/uL (0.8-4.8); Lymphocytes % 9.8 %; Mean Corpuscular HGB Conc 33.9 g/dL (30.0-36.0); Mean Corpuscular Hemoglobin 30.9 pg (28.0-34.0); Mean Corpuscular Volume 91.3 fl (80-94); Mean Platelet Volume 9.3 fL (7.4-10.4); Monocytes # 0.5 10^3/uL (0.2-0.9); Monocytes % 14.1 %; Neutrophils # 2.31 10^3/uL (1.8-7.7); Neutrophils % 70.6 %; Nucleated Red Blood Cells % 0 %; Platelet Count 140 10^3/cmm (130-400); Red Blood Count 4.46 10^6/uL (4.1-5.3); Red Cell Distribution Width 13.6 % (12.1-15.1); White Blood Count 3.3 10^3/uL (4.0-10.0)
[2021-07-04 08:27] LABS: Basophils % 0.8 %; Eosinophils # 0.1 10^3/uL (0.0-0.8); Eosinophils % 4.6 %; Hematocrit 42.7 % (42.0-52.0); Hemoglobin 14.7 g/dL (11.7-16.6); Lymphocytes # 0.4 10^3/uL (0.8-4.8); Lymphocytes % 16.5 %; Mean Corpuscular HGB Conc 34.4 g/dL (30.0-36.0); Mean Corpuscular Hemoglobin 31.3 pg (28.0-34.0); Mean Corpuscular Volume 90.9 fl (80-94); Mean Platelet Volume 9.1 fL (7.4-10.4); Monocytes # 0.5 10^3/uL (0.2-0.9); Monocytes % 18.1 %; Neutrophils # 1.54 10^3/uL (1.8-7.7); Neutrophils % 59.2 %; Nucleated Red Blood Cells % 0 %; Platelet Count 141 10^3/cmm (130-400); Red Cell Distribution Width 13.2 % (12.1-15.1); White Blood Count 2.6 10^3/uL (4.0-10.0)
[2021-07-04 09:05] LABS: Alanine Aminotransferase 9 U/L (0-41); Albumin Level 4.1 g/dL (3.5-5.2); Alkaline Phosphatase 76 IU/L (40-130); Anion Gap 13.4 (5-19); Aspartate Amino Transferase 20 U/L (0-40); Blood Urea Nitrogen 13 mg/dL (8-23); Calcium 8.6 mg/dL (8.5-10.5); Carbon Dioxide 26 mmol/L (22-29); Chloride 105 mmol/L (98-107); Globulin 2.3 g/dL (1.3-4.6); Glucose 103 mg/dL (65-115); Lactate Dehydrogenase 224 U/L (135-225); Osmolality Calculated 290 mOsm/kg (285-295); Potassium 4.4 mmol/L (3.5-5.1); Sodium 140 mmol/L (136-145); Total Bilirubin 0.6 mg/dL (0.15-1.2); Total Protein 6.4 g/dL (6.6-8.7)
--- NOTE | 2021-07-08 15:28 | ONC FU_ITS ---
Dr. Becerril Patient Follow-Up Note Patient: Sheng Barrios Unit #: [id number]: 1950 Dicatated By: Richie Becerril M.D.Date of Visit:Jul 04, 2021 Onc Med Follow-up/Prog Note Chief Complaint: Lymphoma. 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 He had presented with enlarged lymph nodes in the groin area on both sides and more significantly in the left axillary area. He had first become aware of the lymph node enlargement about [address] of the abdomen/pelvis on 09/10/2019 showed extensive lymphadenopathy including bilateral inguinal adenopathy measuring up to 18 mm on the left and up to 29 mm in the right, bilateral iliac chain lymphadenopathy measuring up to 2.0 cm on the left and 1.8 cm on the right, para-aortic and pericaval retroperitoneal lymphadenopathy measuring up to 2.5 cm, and central mesenteric lymphadenopathy measuring up to 10 mm. There was mild splenomegaly measuring 14.5 cm. Also noted was diffuse urinary bladder mild wall thickening and prostatic enlargement measuring 5.8 x 4.2 cm. He underwent ultrasound directed core needle biopsy of the right inguinal lymph node on 09/18/2019. Pathology showed malignant B-cell lymphoma consistent with grade 1-2 follicular center lymphoma. By immunoperoxidase the lymphoma cells were positive for CD20, BCL-2, and CD10. They were negative for MUM1 and cyclin D1. BL-6 showed equivocal staining in a few neoplastic follicles. CD3 and CD5 were noted to stain T cells. The Ki-67 showed less than 10% positive staining. He had medical oncology consultation at [facility] with Dr. Alexa Conley on 10/08/2019. The pathology was reviewed there with a diagnosis of follicular lymphoma, follicular pattern, grade 1-2. By flow cytometry the neoplastic cells were noted to be positive for CD10, CD19, CD20, CD23, CD45, FMC 7, and kappa. They were negative for CD5 and lambda. Staging PET/CT on on 11/14/2019 showed bilateral cervical adenopathy levels 1-4 within index conglomerate at the lower left cervical location with maximum SUV of 5.01. There was bilateral axillary adenopathy, more prominent on the left side with an index lesion measuring 6.0 x 4.5 cm, maximum SUV 11.34. There were multiple smaller mediastinal lymph nodes and there was extensive retroperitoneal lymphadenopathy extending into the pelvis involving common iliac, internal iliac, and external iliac lymph nodes and there were multiple bilateral inguinal lymph nodes. In the setting of low-grade lymphoma which was not overtly symptomatic, expectant management was recommended. I had seen him initially on 01/13/2020. Despite having a fairly bulky left axillary mass, he was not symptomatic with it, and we opted to just continue with observation/expectant management. He was seen for a follow-up visit on 01/19/2021. At that point there had been further enlargement of the left axillary mass, though he was still only minimally symptomatic with his only significant complaint being some discomfort associated with the mass, mainly when lying on his left side. Restaging CT scans of the chest, abdomen, and pelvis on 01/31/2021 showed progression of bulky left axillary lymphadenopathy with the largest node measuring 11 x 6.6 cm. Also noted was progressed subpectoral adenopathy, left greater than right, and progressed AP window lymphadenopathy. The abdomen/pelvis showed progressed adenopathy in the central mesentery abdomen and pelvis with enlarged lymph nodes noted along the central mesentery and SMA. There were additional enlarged mesenteric lymph nodes in the mid abdomen and left upper quadrant and there was masslike confluent periaortic retroperitoneal lymphadenopathy. There was interval development of partial obstruction of the traversing ureters bilaterally with mild pelvocaliectasis. There was additional progressed iliac and pelvic lymphadenopathy with the largest inguinal lymph node measuring up to 4.4 cm on the right. The prostate was again noted to be enlarged measuring 4.9 cm. With those findings, he was recommended to begin treatment with bendamustine in combination with rituximab. He has additional history of atrial fibrillation. He is on chronic anticoagulation with apixaban. He has no other medical illnesses. He has a history of smoking 1 pack of cigarettes daily, but he quit smoking sometime in the mid 1970s. INTERIM HISTORY: He began cycle 1 on 03/21/2021. The treatment was stopped during the rituximab infusion when he developed a generalized urticarial skin eruption. It resolved uneventfully on steroid/antihistamine therapy. He then returned on 03/28/2021 to restart cycle 1 of bendamustine/rituximab with the steroid premedication. He tolerated it with no adverse effects. At his follow-up visit on 04/18/2021 he was doing well clinically and he appeared to be showing you very good response to the chemotherapy. He then returned and continued with cycle 2 of bendamustine/rituximab on 04/25/2021. He began cycle 3 on 06/06/2021, delayed due to neutropenia. He is seen for a follow-up visit. He has been feeling good generally. He has good energy and activity tolerance. ECOG score is 0. His appetite is good. He has no fever or night sweats. He has not had sore mouth or throat. He has no shortness of breath, cough, or chest pain. He has a little bit of nausea after his chemotherapy. He has no other GI or complaints. He has no significant joint or bone pain. He does not complain of headache or dizziness. He has no numbness/paresthesia or other focal neurologic symptoms. Medications: Eliquis 1 Tablet (of 5 mg) Oral b.i.d., Metoprolol Tartrate 1 Tablet (of 25 mg) Oral b.i.d., Multivitamin Adult 1 Tablet Oral daily, Vitamin C 1 Capsule Oral b.i.d. Allergies: No Known Allergies. Vital Signs: Performed on Jul 04, 2021 09:29 Height - 73.00 in Weight - 198.8 lbs (HIGH) BSA - 2.15 sq.m BMI - 26.23 Temperature - 98.0 F (LOW) Pulse - 64 /min Respiration - 18 /min BP - 133/82 mm(hg) O2 Sat - 99 % Pain - 0 Fatigue - 2 Physical Examination: Constitutional - He looks good generally, Eyes - Sclerae nonicteric. Conjunctivae clear, ENMT - No lesions noted in the oral cavity, Hematologic/Lymphatic - There is no cervical or clavicular adenopathy noted. There is no palpable adenopathy in the right axilla, and the left axillary adenopathy now has completely resolved, Respiratory - Lungs are clear with good air movement bilaterally, Cardiovascular - Heart rhythm is regular. There is no murmur, gallop, or rub noted, Abdomen - Soft. Liver and spleen are not enlarged. There is no abdominal mass or ascites noted and there is no inguinal adenopathy noted, Extremities - No edema, Neurologic - No focal neurologic deficits noted. Lab/Imaging: Test performed on Jul 04, 2021 08:15 LDH (Total) 224 U/L Sodium 140 mmol/L Potassium 4.4 mmol/L Chloride 105 mmol/L CO2 26 mmol/L Anion Gap 13.4 BUN 13 mg/dL Creatinine 0.7 mg/dL Cr Clearance (Est) 127.6800 mL/min Glucose 103 mg/dL Osmolality - Calculated 290 mOsm/kg Calcium 8.6 mg/dL Protein, Total 6.4 g/dL Albumin 4.1 g/dL Globulin 2.3 g/dL Bilirubin, Total 0.6 mg/dL ALT (SGPT) 9 U/L AST (SGOT) 20 U/L Alkaline Phosphatase 76 IU/L WBC 2.6 10 3/uL RBC 4.70 10 6/uL HGB 14.7 g/dL HCT 42.7 % MCV 90.9 fl MCH 31.3 pg MCHC 34.4 g/dL RDW 13.2 % Platelet Count 141 10 3/cmm MPV 9.1 fL Neutrophils 1.54 10 3/uL Lymphocytes 0.4 10 3/uL Monocytes 0.5 10 3/uL Eosinophils 0.1 10 3/uL Basophils 0.0 10 3/uL Neutrophil % 59.2 % Lymphocyte % 16.5 % Monocyte % 18.1 % Eosinophil % 4.6 % Basophils % 0.8 % NRBC % 0 % Problem List: 1. Follicular lymphoma, grade 1-2, stage at least III, but not overtly symptomatic. 2. Paroxysmal atrial fibrillation. 3. 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 He had uneventful recovery. Problems Addressed with this Encounter and Plan: Patient withi follicular lymphoma, grade 1-2, stage at least III, but not overtly symptomatic. At presentation in September 2019 he had generalized lymphadenopathy, including a bulky left axillary mass. Core needle biopsy of a right inguinal lymph node on 09/18/2019 showed malignant B-cell lymphoma consistent with grade 1-2 follicular center lymphoma. As he was not symptomatic, he initially began on expectant management. During follow-up there was further enlargement of the bulky left axillary mass and his restaging CT scans on 01/31/2021 also showed significant disease progression in the abdomen/pelvis. There was associated development of partial ureteral obstruction with mild pelvocaliectasis and ureterectasis from masslike periaortic confluent lymphadenopathy. With those findings he was recommended to undergo treatment with bendamustine/rituximab. He began cycle 1 on 03/21/2021. His treatment was interrupted during the rituximab infusion due to development of a generalized urticarial eruption. He has had complete recovery. He then returned on 03/28/2021 to restart cycle 1 of bendamustine/rituximab with steroid premedication. He tolerated it with no adverse effects and by clinical evaluation he appeared to have a very significant response. He continued with cycle 2 on 04/25/2021 and with cycle 3 on 06/06/2021. His cycle 3 was delayed due to neutropenia. He otherwise has tolerated the chemotherapy extremely well, and he has had a very good clinical response. I had originally planned to administer 4 cycles of treatment, but as he again has moderately severe neutropenia and he has had a very good clinical response, I am going to stop his chemotherapy now. Under usual circumstances he would now be transitioned to maintenance rituximab. However, with the COVID-19 pandemic now flaring up and with the known immunosuppression associated with rituximab, I think the best option is to just follow him now on expectant management, particularly in view of the fact that he is unvaccinated. As such, I will just plan a follow-up visit in 3 months. Signed By: Richie Becerril M.D. <<Signature on File>>
== END 2021-07-05 23:59 | disposition home or self-care (01) ==
LOC: ONCMED 05:28
PROVIDERS: PCP Family Medicine; Visit Provider Internal Medicine Medical Oncology
DX: Z51.12 Encounter for antineoplastic immunotherapy (principal); Z51.11 Encounter for antineoplastic chemotherapy; C82.10 Follicular lymphoma grade II, unspecified site; I48.0 Paroxysmal atrial fibrillation; G51.0 Bell's palsy; Z79.899 Other long term (current) drug therapy
CPT/HCPCS: 36415; 80053; 83615; 85025; 96361; 96367; 96375; 96411; 96413; 96415; 99214; J1100; J1200; J2405; J2469; J7040; J7050; J9034; J9312

== ENCOUNTER 2021-09-21 13:26 | Outpatient (CLI) | payer MEDICARE, SELFPAY ==
[2021-09-21 13:46] LABS: Basophils % 0.7 %; Eosinophils # 0.1 10^3/uL (0.0-0.8); Eosinophils % 1.4 %; Hematocrit 44.6 % (42.0-52.0); Hemoglobin 15.3 g/dL (11.7-16.6); Lymphocytes # 0.4 10^3/uL (0.8-4.8); Lymphocytes % 10.2 %; Mean Corpuscular HGB Conc 34.3 g/dL (30.0-36.0); Mean Corpuscular Hemoglobin 31.2 pg (28.0-34.0); Mean Corpuscular Volume 90.8 fl (80-94); Mean Platelet Volume 9.3 fL (7.4-10.4); Monocytes # 0.4 10^3/uL (0.2-0.9); Monocytes % 9.2 %; Neutrophils # 3.23 10^3/uL (1.8-7.7); Neutrophils % 76.6 %; Nucleated Red Blood Cells % 0 %; Platelet Count 171 10^3/cmm (130-400); Red Blood Count 4.91 10^6/uL (4.1-5.3); Red Cell Distribution Width 12.5 % (12.1-15.1); White Blood Count 4.2 10^3/uL (4.0-10.0)
[2021-09-21 14:21] LABS: Alanine Aminotransferase 12 U/L (0-41); Albumin Level 4.2 g/dL (3.5-5.2); Alkaline Phosphatase 79 IU/L (40-130); Anion Gap 13.4 (5-19); Aspartate Amino Transferase 24 U/L (0-40); Blood Urea Nitrogen 13 mg/dL (8-23); Calcium 8.7 mg/dL (8.5-10.5); Carbon Dioxide 27 mmol/L (22-29); Chloride 103 mmol/L (98-107); Globulin 2.6 g/dL (1.3-4.6); Glucose 96 mg/dL (65-115); Lactate Dehydrogenase 244 U/L (135-225); Osmolality Calculated 288 mOsm/kg (285-295); Potassium 4.4 mmol/L (3.5-5.1); Sodium 139 mmol/L (136-145); Total Protein 6.8 g/dL (6.6-8.7)
== END 2021-09-21 13:27 | disposition home or self-care (01) ==
LOC: ONCMED 13:27
PROVIDERS: PCP Family Medicine; Visit Provider Internal Medicine Medical Oncology
DX: C82.18 Follicular lymphoma grade II, lymph nodes of multiple sites (principal)
CPT/HCPCS: 36415; 80053; 83615; 85025

== ENCOUNTER 2021-09-22 06:43 | Outpatient (CLI) | payer MEDICARE, SELFPAY ==
--- NOTE | 2021-09-25 15:24 | ONC FU_ITS ---
Dr. Becerril Patient Follow-Up Note Patient: Sheng Barrios Unit #: [id number]: 1950 Dicatated By: Richie Becerril M.D.Date of Visit:Sep 22, 2021 Onc Med Follow-up/Prog Note Chief Complaint: Lymphoma. 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 He had presented with enlarged lymph nodes in the groin area on both sides and more significantly in the left axillary area. He had first become aware of the lymph node enlargement about [address] of the abdomen/pelvis on 09/10/2019 showed extensive lymphadenopathy including bilateral inguinal adenopathy measuring up to 18 mm on the left and up to 29 mm in the right, bilateral iliac chain lymphadenopathy measuring up to 2.0 cm on the left and 1.8 cm on the right, para-aortic and pericaval retroperitoneal lymphadenopathy measuring up to 2.5 cm, and central mesenteric lymphadenopathy measuring up to 10 mm. There was mild splenomegaly measuring 14.5 cm. Also noted was diffuse urinary bladder mild wall thickening and prostatic enlargement measuring 5.8 x 4.2 cm. He underwent ultrasound directed core needle biopsy of the right inguinal lymph node on 09/18/2019. Pathology showed malignant B-cell lymphoma consistent with grade 1-2 follicular center lymphoma. By immunoperoxidase the lymphoma cells were positive for CD20, BCL-2, and CD10. They were negative for MUM1 and cyclin D1. BL-6 showed equivocal staining in a few neoplastic follicles. CD3 and CD5 were noted to stain T cells. The Ki-67 showed less than 10% positive staining. He had medical oncology consultation at [facility] with Dr. Alexa Conley on 10/08/2019. The pathology was reviewed there with a diagnosis of follicular lymphoma, follicular pattern, grade 1-2. By flow cytometry the neoplastic cells were noted to be positive for CD10, CD19, CD20, CD23, CD45, FMC 7, and kappa. They were negative for CD5 and lambda. Staging PET/CT on on 11/14/2019 showed bilateral cervical adenopathy levels 1-4 within index conglomerate at the lower left cervical location with maximum SUV of 5.01. There was bilateral axillary adenopathy, more prominent on the left side with an index lesion measuring 6.0 x 4.5 cm, maximum SUV 11.34. There were multiple smaller mediastinal lymph nodes and there was extensive retroperitoneal lymphadenopathy extending into the pelvis involving common iliac, internal iliac, and external iliac lymph nodes and there were multiple bilateral inguinal lymph nodes. In the setting of low-grade lymphoma which was not overtly symptomatic, expectant management was recommended. I had seen him initially on 01/13/2020. Despite having a fairly bulky left axillary mass, he was not symptomatic with it, and we opted to just continue with observation/expectant management. He was seen for a follow-up visit on 01/19/2021. At that point there had been further enlargement of the left axillary mass, though he was still only minimally symptomatic with his only significant complaint being some discomfort associated with the mass, mainly when lying on his left side. Restaging CT scans of the chest, abdomen, and pelvis on 01/31/2021 showed progression of bulky left axillary lymphadenopathy with the largest node measuring 11 x 6.6 cm. Also noted was progressed subpectoral adenopathy, left greater than right, and progressed AP window lymphadenopathy. The abdomen/pelvis showed progressed adenopathy in the central mesentery abdomen and pelvis with enlarged lymph nodes noted along the central mesentery and SMA. There were additional enlarged mesenteric lymph nodes in the mid abdomen and left upper quadrant and there was masslike confluent periaortic retroperitoneal lymphadenopathy. There was interval development of partial obstruction of the traversing ureters bilaterally with mild pelvocaliectasis. There was additional progressed iliac and pelvic lymphadenopathy with the largest inguinal lymph node measuring up to 4.4 cm on the right. The prostate was again noted to be enlarged measuring 4.9 cm. With those findings, he was recommended to begin treatment with bendamustine in combination with rituximab. He has additional history of atrial fibrillation. He is on chronic anticoagulation with apixaban. He has no other medical illnesses. He has a history of smoking 1 pack of cigarettes daily, but he quit smoking sometime in the mid 1970s. INTERIM HISTORY: He began cycle 1 on 03/21/2021. The treatment was stopped during the rituximab infusion when he developed a generalized urticarial skin eruption. It resolved uneventfully on steroid/antihistamine therapy. He then returned on 03/28/2021 to restart cycle 1 of bendamustine/rituximab with the steroid premedication. He tolerated it with no adverse effects. At his follow-up visit on 04/18/2021 he was doing well clinically and he appeared to be showing you very good response to the chemotherapy. He then returned and continued with cycle 2 of bendamustine/rituximab on 04/25/2021. He began cycle 3 on 06/06/2021, delayed due to neutropenia. I had seen him for a follow-up visit on 07/04/2021. By clinical evaluation had a very good response to the chemotherapy and given his persistent neutropenia, I opted to stop his treatment after 3 cycles. After discussing pros and cons we also opted not to attempt maintenance rituximab, mainly due to the associated immune suppression and risks associated with the COVID-19 pandemic, in particular because he was not vaccinated. He is seen for a scheduled follow-up visit. He has been feeling good generally. He has good energy and activity tolerance. ECOG score is 0. His appetite is good. He has no fever or night sweats. He has not had sore mouth or throat. He does not complain of cough, and has not been having shortness of breath or chest pain. He has no GI or complaints other than some mild constipation. He has no significant joint or bone pain. He does not complain of headache or dizziness, and he has no focal neurologic symptoms. Medications: Calcium 500 + D3 1 (500-600 mg - Units) Tablet Oral daily, Eliquis 1 Tablet (of 5 mg) Oral b.i.d., Metoprolol Tartrate 1 Tablet (of 25 mg) Oral b.i.d., Multivitamin Adult 1 Tablet Oral daily, Vitamin C 1 Capsule Oral b.i.d., Zinc 1 (25 mg) Tablet Oral daily Allergies: No Known Allergies. Vital Signs: Performed on Sep 22, 2021 13:38 Height - 73.00 in Weight - 204.0 lbs (HIGH) BSA - 2.17 sq.m BMI - 26.91 Temperature - 98.3 F (LOW) Pulse - 60 /min Respiration - 18 /min BP - 139/81 mm(hg) O2 Sat - 99 % Pain - 0 Fatigue - 0 Physical Examination: Constitutional - He looks good generally, Eyes - Sclerae nonicteric. Conjunctivae clear, ENMT - No lesions noted in the oral cavity, Hematologic/Lymphatic - There is no cervical or clavicular adenopathy noted. There is no palpable adenopathy in the right axilla. There is only mininal residual adenopathy palpable in the left axilla, Respiratory - Lungs are clear with good air movement bilaterally, Cardiovascular - Heart rhythm is regular. There is no murmur, gallop, or rub noted, Abdomen - Soft. Liver and spleen are not enlarged. There is no abdominal mass or ascites noted and there is no inguinal adenopathy noted, Extremities - No edema, Neurologic - No focal neurologic deficits noted. Lab/Imaging: Test performed on Sep 21, 2021 13:35 LDH (Total) 244 U/L Sodium 139 mmol/L Potassium 4.4 mmol/L Chloride 103 mmol/L CO2 27 mmol/L Anion Gap 13.4 BUN 13 mg/dL Creatinine 0.9 mg/dL Cr Clearance (Est) 97.8700 mL/min Glucose 96 mg/dL Osmolality - Calculated 288 mOsm/kg Calcium 8.7 mg/dL Protein, Total 6.8 g/dL Albumin 4.2 g/dL Globulin 2.6 g/dL Bilirubin, Total 1.0 mg/dL ALT (SGPT) 12 U/L AST (SGOT) 24 U/L Alkaline Phosphatase 79 IU/L WBC 4.2 10 3/uL RBC 4.91 10 6/uL HGB 15.3 g/dL HCT 44.6 % MCV 90.8 fl MCH 31.2 pg MCHC 34.3 g/dL RDW 12.5 % Platelet Count 171 10 3/cmm MPV 9.3 fL Neutrophils 3.23 10 3/uL Lymphocytes 0.4 10 3/uL Monocytes 0.4 10 3/uL Eosinophils 0.1 10 3/uL Basophils 0.0 10 3/uL Neutrophil % 76.6 % Lymphocyte % 10.2 % Monocyte % 9.2 % Eosinophil % 1.4 % Basophils % 0.7 % NRBC % 0 % Problem List: 1. Follicular lymphoma, grade 1-2, stage at least III, but not overtly symptomatic. 2. Paroxysmal atrial fibrillation. 3. 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 He had uneventful recovery. Problems Addressed with this Encounter and Plan: Patient withi follicular lymphoma, grade 1-2, stage at least III, but not overtly symptomatic. At presentation in September 2019 he had generalized lymphadenopathy, including a bulky left axillary mass. Core needle biopsy of a right inguinal lymph node on 09/18/2019 showed malignant B-cell lymphoma consistent with grade 1-2 follicular center lymphoma. As he was not symptomatic, he initially began on expectant management. During follow-up there was further enlargement of the bulky left axillary mass and his restaging CT scans on 01/31/2021 also showed significant disease progression in the abdomen/pelvis. There was associated development of partial ureteral obstruction with mild pelvocaliectasis and ureterectasis from masslike periaortic confluent lymphadenopathy. With those findings he was recommended to undergo treatment with bendamustine/rituximab. He began cycle 1 on 03/21/2021. His treatment was interrupted during the rituximab infusion due to development of a generalized urticarial eruption. He has had complete recovery. He then returned on 03/28/2021 to restart cycle 1 of bendamustine/rituximab with steroid premedication. He tolerated it with no adverse effects and by clinical evaluation he appeared to have a very significant response. He continued with cycle 2 on 04/25/2021 and with cycle 3 on 06/06/2021. His cycle 3 was delayed due to neutropenia. I had originally planned to administer 4 cycles of treatment, but as he had experienced significant neutropenia and he was showing a very good clinical response, I opted to stop his chemotherapy after 3 cycles. After discussion with him, I opted against maintenance rituximab, mainly due to associated immunosuppression and risk with the COVID-19 pandemic. He has now being followed on expectant management. He appears to be doing very well clinically. At this point I do want to repeat his CT scans to more accurately evaluate his response and to serve as baseline for future studies. I will tentatively just plan a follow-up visit in 6 months. Signed By: Richie Becerril M.D. <<Signature on File>>
== END 2021-09-22 06:44 | disposition home or self-care (01) ==
LOC: ONCMED 06:44
PROVIDERS: PCP Family Medicine; Visit Provider Internal Medicine Medical Oncology
DX: Z08 Encounter for follow-up examination after completed treatment for malignant neoplasm (principal); Z85.72 Personal history of non-Hodgkin lymphomas; I48.0 Paroxysmal atrial fibrillation; G51.0 Bell's palsy; Z79.899 Other long term (current) drug therapy; Z92.21 Personal history of antineoplastic chemotherapy
CPT/HCPCS: 99214

== ENCOUNTER 2021-09-28 11:20 | Outpatient (CLI) | payer MEDICARE, SELFPAY ==
--- NOTE | 2021-09-28 | CT_ITS ---
WS: [id number] CT CHEST, ABDOMEN, AND PELVIS TECHNIQUE: Contrast-enhanced CT of the chest, abdomen, and pelvis with coronal and sagittal reformatt ed images. CLINICAL INFORMATION: LYMPHOMA COMPARISON: January 31, 2021, PET CT November 14, 2019 DLP: 2434.[address] scans at [facility] use at least one of these dose optimization techniques: automated e xposure control; mA and/or kV adjustment per patient size (includes targeted exams where dose is matc hed to clinical indication); or iterative reconstruction. CT CHEST: Mild chronic emphysematous changes. No focal pneumonia or pleural fluid. A few calcified granulomas. Previously described masslike lymphadenopathy in the mediastinum and left axilla has significantly im proved. A few residual enlarged lymph nodes in the left axilla measuring up to 2 cm. No right axillar y lymphadenopathy today. Subpectoral lymphadenopathy has essentially resolved. Normal caliber thoracic aorta. Proximal main pulmonary arteries are normal. No mediastinal or hilar l ymphadenopathy today. CT ABDOMEN AND PELVIS: Previously described extensive bulky periaortic and mesenteric lymphadenopathy has significantly impr [place] and essentially resolved. Induration with numerous normal sized lymph nodes in the periaortic, a ortocaval, and retroperitoneal regions. No residual bulky lymphadenopathy in the abdomen or pelvis. P rominent mesenteric lymph nodes along the central mesentery and mesenteric root have resolved. Previo usly described iliac chain and pelvic lymphadenopathy has resolved. No inguinal lymphadenopathy today . Enlarged enhancing prostate with indentation on the bladder. This measures approximately 3.9 x 5.7 CM . Recommend correlation PSA. Diverticulosis. No evidence of acute diverticulitis. Normal liver. Normal portal vein and splenic vein. Normal gallbladder. Normal spleen. Normal GE junct ion. Adrenal glands are normal. Normal renal parenchymal enhancement. No hydronephrosis. Previously d escribed hydronephrosis has resolved. Slight residual left pelvocaliectasis. Tiny left cortical cyst. Residual induration and soft tissue thickening in the periaortic and retroperitoneal soft tissues. M ild residual tethering of the left ureter without significant obstruction. Hypertrophic changes thora cic spine. Mild chronic compression of the L2 vertebral body. CT/CT chest abd pel w con* IMPRESSION: 1. Significantly improved and nearly resolved lymphadenopathy in the chest abd omen pelvis compatible with interval response to therapy. 2. A few residual prominent left axillary lymph nodes the largest measuring up to 2.0 cm. 3. Lungs are well aerated. No acute pulmonary infiltrates. 4. Significantly improved lymphadenopathy in the abdomen and pelvis with resid ual soft tissue induration about the aorta and retroperitoneal regions with nor mal size left nodes. 5. Resolution of the iliac chain and inguinal lymphadenopathy. 6. Enlarged prostate measuring 3.9 x 5.7 CM. Recommend correlation PSA. 7. Previously described hydronephrosis has resolved. Mild residual tethering o f the left ureter with mild left pelvocaliectasis.
== END 2021-09-28 11:21 | disposition home or self-care (01) ==
PROVIDERS: PCP Family Medicine; Visit Provider Internal Medicine Medical Oncology
DX: C82.18 Follicular lymphoma grade II, lymph nodes of multiple sites (principal); N40.0 Benign prostatic hyperplasia without lower urinary tract symptoms
CPT/HCPCS: 71260; 74177

== ENCOUNTER 2022-03-23 10:13 | Oncology outpatient (recurring) (ONCR) | payer MEDICARE, SELFPAY ==
[2022-03-23 10:46] LABS: Basophils % 0.5 %; Eosinophils # 0.1 10^3/uL (0.0-0.8); Eosinophils % 2.9 %; Hematocrit 46.7 % (42.0-52.0); Hemoglobin 15.4 g/dL (11.7-16.6); Lymphocytes # 0.7 10^3/uL (0.8-4.8); Lymphocytes % 18.7 %; Mean Corpuscular Hemoglobin 30.2 pg (28.0-34.0); Mean Corpuscular Volume 91.6 fl (80-94); Mean Platelet Volume 9.4 fL (7.4-10.4); Monocytes # 0.4 10^3/uL (0.2-0.9); Monocytes % 9.4 %; Neutrophils # 2.62 10^3/uL (1.8-7.7); Nucleated Red Blood Cells % 0 %; Platelet Count 165 10^3/cmm (130-400); Red Cell Distribution Width 13.6 % (12.1-15.1); White Blood Count 3.9 10^3/uL (4.0-10.0)
[2022-03-23 11:13] LABS: Alanine Aminotransferase 11 U/L (0-41); Albumin Level 4.5 g/dL (3.5-5.2); Alkaline Phosphatase 89 IU/L (40-130); Aspartate Amino Transferase 25 U/L (0-40); Blood Urea Nitrogen 14 mg/dL (8-23); Calcium 9.1 mg/dL (8.5-10.5); Carbon Dioxide 27 mmol/L (22-29); Chloride 105 mmol/L (98-107); Globulin 2.5 g/dL (1.3-4.6); Glucose 114 mg/dL (65-115); Osmolality Calculated 291 mOsm/kg (285-295); Sodium 140 mmol/L (136-145); Total Bilirubin 0.5 mg/dL (0.15-1.2)
[2022-03-23 11:52] LABS: Anion Gap 13.8 (5-19); Lactate Dehydrogenase 295 U/L (135-225); Potassium 5.8 mmol/L (3.5-5.1)
== END 2022-04-04 23:59 | disposition home or self-care (01) ==
PROVIDERS: PCP Family Medicine; Referring Provider Internal Medicine Medical Oncology; Visit Provider Internal Medicine Medical Oncology
DX: C82.18 Follicular lymphoma grade II, lymph nodes of multiple sites (principal)
CPT/HCPCS: 36415; 80053; 83615; 85025; 99999; G0463

== ENCOUNTER → 2022-06-01 11:35 | Outpatient (BNVA) | payer MEDICARE, SELFPAY | PROVIDERS: PCP Family Medicine; Visit Provider Family Medicine | DX: E11.9 Type 2 diabetes mellitus without complications (principal); Z51.81 Encounter for therapeutic drug level monitoring; Z00.00 Encounter for general adult medical examination without abnormal findings; C82.18 Follicular lymphoma grade II, lymph nodes of multiple sites; Z13.220 Encounter for screening for lipoid disorders | CPT/HCPCS: 80053; 80061; 83036; 85025 ==

== ENCOUNTER 2022-10-03 10:23 | Oncology outpatient (recurring) (ONCR) | payer MEDICARE, SELFPAY ==
[2022-10-03 10:49] LABS: Basophils % 0.6 %; Eosinophils # 0.1 10^3/uL (0.0-0.8); Eosinophils % 1.3 %; Hemoglobin 16.2 g/dL (11.7-16.6); Lymphocytes # 0.9 10^3/uL (0.8-4.8); Lymphocytes % 18.4 %; Mean Corpuscular HGB Conc 33.8 g/dL (30.0-36.0); Mean Corpuscular Hemoglobin 31.1 pg (28.0-34.0); Mean Corpuscular Volume 92.1 fl (80-94); Mean Platelet Volume 9.5 fL (7.4-10.4); Monocytes # 0.3 10^3/uL (0.2-0.9); Monocytes % 6.7 %; Neutrophils # 3.37 10^3/uL (1.8-7.7); Neutrophils % 72.8 %; Nucleated Red Blood Cells % 0 %; Platelet Count 178 10^3/cmm (130-400); Red Blood Count 5.21 10^6/uL (4.1-5.3); Red Cell Distribution Width 12.8 % (12.1-15.1); White Blood Count 4.6 10^3/uL (4.0-10.0)
[2022-10-03 11:14] LABS: Alanine Aminotransferase 11 U/L (0-41); Albumin Level 4.2 g/dL (3.5-5.2); Alkaline Phosphatase 91 U/L (40-130); Anion Gap 11.7 (5-19); Aspartate Amino Transferase 19 U/L (0-40); Blood Urea Nitrogen 12 mg/dL (8-23); Calcium 9.1 mg/dL (8.5-10.5); Carbon Dioxide 28 mmol/L (22-29); Chloride 102 mmol/L (98-107); Globulin 2.9 g/dL (1.3-4.6); Glucose 106 mg/dL (65-115); Lactate Dehydrogenase 165 U/L (135-225); Osmolality Calculated 284 mOsm/kg (285-295); Potassium 4.7 mmol/L (3.5-5.1); Sodium 137 mmol/L (136-145); Total Bilirubin 0.8 mg/dL (0.15-1.2); Total Protein 7.1 g/dL (6.6-8.7)
[2022-10-03 12:49] LABS: Estmated Average Glucose 111; Hemoglobin A1C 5.5 % (4.0-6.0)
[2022-10-04 09:36] LABS: Chol HDL Ratio 5.68 mg/dL (1.0-5.00); Cholesterol 227 mg/dL (0-200); HDL Cholesterol 40 mg/dL (60-100); LDL Cholesterol Calculated 169 mg/dL (50-129); LDL HDL Ratio 4.23 RATIO (0.00-3.22); Triglycerides 90 mg/dL (0-150)
== END 2022-10-04 23:59 | disposition home or self-care (01) ==
PROVIDERS: PCP Family Medicine; Referring Provider Internal Medicine Medical Oncology; Visit Provider Internal Medicine Medical Oncology
DX: Z08 Encounter for follow-up examination after completed treatment for malignant neoplasm (principal); Z85.72 Personal history of non-Hodgkin lymphomas; Z92.21 Personal history of antineoplastic chemotherapy; F17.210 Nicotine dependence, cigarettes, uncomplicated; E78.5 Hyperlipidemia, unspecified; R73.9 Hyperglycemia, unspecified
CPT/HCPCS: 36415; 80053; 80061; 83036; 83615; 85025; 99213

== ENCOUNTER 2023-04-04 13:00 | Oncology outpatient (recurring) (ONCR) | payer MEDICARE, SELFPAY ==
[2023-04-04 12:52] LABS: Basophils % 0.9 %; Eosinophils # 0.1 10^3/uL (0.0-0.8); Eosinophils % 1.9 %; Hematocrit 43.4 % (42.0-52.0); Hemoglobin 14.8 g/dL (11.7-16.6); Lymphocytes # 1.1 10^3/uL (0.8-4.8); Lymphocytes % 23.3 %; Mean Corpuscular HGB Conc 34.1 g/dL (30.0-36.0); Mean Corpuscular Hemoglobin 31.2 pg (28.0-34.0); Mean Corpuscular Volume 91.4 fl (80-94); Mean Platelet Volume 8.9 fL (7.4-10.4); Monocytes # 0.4 10^3/uL (0.2-0.9); Monocytes % 7.7 %; Neutrophils # 3.08 10^3/uL (1.8-7.7); Nucleated Red Blood Cells % 0 %; Platelet Count 169 10^3/cmm (130-400); Red Blood Count 4.75 10^6/uL (4.1-5.3); Red Cell Distribution Width 12.9 % (12.1-15.1); White Blood Count 4.7 10^3/uL (4.0-10.0)
[2023-04-04 13:12] LABS: Alanine Aminotransferase 12 U/L (0-41); Albumin Level 4.3 g/dL (3.5-5.2); Alkaline Phosphatase 87 U/L (40-130); Anion Gap 10.4 (5-19); Aspartate Amino Transferase 19 U/L (0-40); Blood Urea Nitrogen 10 mg/dL (8-23); Calcium 8.9 mg/dL (8.5-10.5); Carbon Dioxide 27 mmol/L (22-29); Chloride 106 mmol/L (98-107); Globulin 2.5 g/dL (1.3-4.6); Glucose 93 mg/dL (65-115); Lactate Dehydrogenase 154 U/L (135-225); Osmolality Calculated 287 mOsm/kg (285-295); Potassium 4.4 mmol/L (3.5-5.1); Sodium 139 mmol/L (136-145); Total Bilirubin 0.8 mg/dL (0.15-1.2); Total Protein 6.8 g/dL (6.6-8.7)
== END 2023-04-04 23:59 | disposition home or self-care (01) ==
PROVIDERS: PCP Family Medicine; Referring Provider Internal Medicine Medical Oncology; Visit Provider Internal Medicine Medical Oncology
DX: Z08 Encounter for follow-up examination after completed treatment for malignant neoplasm (principal); Z85.72 Personal history of non-Hodgkin lymphomas; F17.210 Nicotine dependence, cigarettes, uncomplicated; Z92.25 Personal history of immunosuppression therapy
CPT/HCPCS: 36415; 80053; 83615; 85025; 99213

== ENCOUNTER → 2023-07-23 14:41 | Outpatient (BNVA) | payer MEDICARE, SELFPAY | PROVIDERS: PCP Family Medicine; Visit Provider Family Medicine | DX: Z51.81 Encounter for therapeutic drug level monitoring (principal); E78.5 Hyperlipidemia, unspecified; R35.0 Frequency of micturition; R16.1 Splenomegaly, not elsewhere classified; Z13.220 Encounter for screening for lipoid disorders | CPT/HCPCS: 80053; 80061; 84153; 85025; 86141 ==

== ENCOUNTER 2023-10-04 10:35 | Oncology outpatient (recurring) (ONCR) | payer MEDICARE, SELFPAY ==
[2023-10-04 11:05] VITALS: BP 134/80; PULSE 70; RESP 16; TEMP 36.3; O2SAT 96
[2023-10-04 11:20] LABS: Basophils % 0.9 %; Eosinophils # 0.1 10^3/uL (0.0-0.8); Eosinophils % 2.8 %; Hematocrit 43.8 % (37-53); Lymphocytes # 1.1 10^3/uL (0.8-4.8); Lymphocytes % 24.3 %; Mean Corpuscular HGB Conc 34.2 g/dL (30-55); Mean Corpuscular Hemoglobin 31.3 pg (27-33); Mean Corpuscular Volume 91.3 fl (82-101); Mean Platelet Volume 9.2 fL (7.4-10.4); Monocytes # 0.3 10^3/uL (0.2-0.9); Monocytes % 7.6 %; Neutrophils % 64.2 %; Nucleated Red Blood Cells % 0 %; Platelet Count 169 10^3/cmm (157-399); Red Cell Distribution Width 13.1 % (12.1-15.1); White Blood Count 4.36 10^3/uL (3.29-11.43)
[2023-10-04 11:43] LABS: Alanine Aminotransferase 12 U/L (0-41); Albumin Level 4.2 g/dL (3.5-5.2); Alkaline Phosphatase 88 U/L (40-130); Anion Gap 13.5 (5-19); Aspartate Amino Transferase 22 U/L (0-40); Blood Urea Nitrogen 13 mg/dL (8-23); Calcium 9.1 mg/dL (8.5-10.5); Carbon Dioxide 26 mmol/L (22-29); Chloride 104 mmol/L (98-107); Globulin 2.6 g/dL (1.3-4.6); Glucose 102 mg/dL (65-115); Lactate Dehydrogenase 193 U/L (135-225); Osmolality Calculated 288 mOsm/kg (285-295); Potassium 4.5 mmol/L (3.5-5.1); Sodium 139 mmol/L (136-145); Total Bilirubin 0.9 mg/dL (0.15-1.2); Total Protein 6.8 g/dL (6.6-8.7)
== END 2023-10-04 23:59 | disposition home or self-care (01) ==
PROVIDERS: Nurse Practitioner Family; PCP Family Medicine; Referring Provider Internal Medicine Medical Oncology; Visit Provider Internal Medicine Medical Oncology
DX: C82.18 Follicular lymphoma grade II, lymph nodes of multiple sites (principal); Z79.899 Other long term (current) drug therapy
CPT/HCPCS: 36415; 80053; 83615; 85025; 99213

== ENCOUNTER 2023-10-24 10:05 | Oncology outpatient (recurring) (ONCR) | payer MEDICARE, SELFPAY ==
[2023-10-24 10:24] VITALS: BP 131/84; PULSE 61; RESP 16; TEMP 36.4; O2SAT 99
[2023-10-24 11:40] LABS: Alanine Aminotransferase 17 U/L (0-41); Aspartate Amino Transferase 25 U/L (0-40); Cholesterol 246 mg/dL (0-200); Gamma Glutamyl Transferase 18 U/L (8-61); HDL Cholesterol 41 mg/dL (60-100); LDL Cholesterol Calculated 185 mg/dL (50-129); LDL HDL Ratio 4.51 RATIO (0.00-3.22); Lactate Dehydrogenase 372 U/L (135-225); Triglycerides 99 mg/dL (0-150)
== END 2023-11-04 23:59 | disposition home or self-care (01) ==
LOC: ONCMED 10:06
PROVIDERS: Internal Medicine Cardiovascular Disease; PCP Family Medicine; Referring Provider Internal Medicine Medical Oncology; Visit Provider Internal Medicine Medical Oncology
DX: Z79.899 Other long term (current) drug therapy (principal)
CPT/HCPCS: 36415; 80061; 82977; 83615; 84450; 84460

== ENCOUNTER 2024-04-04 07:54 | Oncology outpatient (recurring) (ONCR) | payer MEDICARE, SELFPAY ==
[2024-04-04 08:40] LABS: Basophils % 0.6 %; Eosinophils # 0.1 10^3/uL (0.0-0.8); Hematocrit 45.8 % (37-53); Lymphocytes % 19.7 %; Mean Corpuscular HGB Conc 34.3 g/dL (30-55); Mean Corpuscular Volume 90.3 fl (82-101); Mean Platelet Volume 9.1 fL (7.4-10.4); Monocytes # 0.4 10^3/uL (0.2-0.9); Monocytes % 8.3 %; Neutrophils # 3.51 10^3/uL (1.8-7.7); Nucleated Red Blood Cells % 0 %; Platelet Count 177 10^3/cmm (157-399); Red Blood Count 5.07 10^6/uL (3.85-5.65); Red Cell Distribution Width 12.8 % (12.1-15.1); White Blood Count 5.08 10^3/uL (3.29-11.43)
[2024-04-04 08:49] LABS: Alanine Aminotransferase 12 U/L (0-41); Alkaline Phosphatase 88 U/L (40-130); Anion Gap 13.7 (5-19); Aspartate Amino Transferase 22 U/L (0-40); Blood Urea Nitrogen 12 mg/dL (8-23); Calcium 8.9 mg/dL (8.5-10.5); Carbon Dioxide 26 mmol/L (22-29); Chloride 101 mmol/L (98-107); Globulin 2.8 g/dL (1.3-4.6); Glucose 110 mg/dL (65-115); Lactate Dehydrogenase 165 U/L (135-225); Osmolality Calculated 282 mOsm/kg (285-295); Potassium 4.7 mmol/L (3.5-5.1); Sodium 136 mmol/L (136-145); Total Bilirubin 0.8 mg/dL (0.15-1.2); Total Protein 6.8 g/dL (6.6-8.7)
== END 2024-04-04 23:59 | disposition home or self-care (01) ==
PROVIDERS: Nurse Practitioner Family; PCP Family Medicine; Referring Provider Internal Medicine Medical Oncology; Visit Provider Internal Medicine Medical Oncology
DX: C82.18 Follicular lymphoma grade II, lymph nodes of multiple sites (principal); R35.1 Nocturia
CPT/HCPCS: 36415; 80053; 83615; 85025; 99214

== ENCOUNTER 2024-10-23 14:00 | Oncology outpatient (recurring) (ONCR) | payer MEDICARE, SELFPAY ==
[2024-10-07 09:35] LABS: Basophils % 0.4 %; Eosinophils # 0.1 10^3/uL (0.0-0.8); Eosinophils % 2.5 %; Hematocrit 44.7 % (37-53); Lymphocytes # 1.2 10^3/uL (0.8-4.8); Lymphocytes % 22.9 %; Mean Corpuscular HGB Conc 33.6 g/dL (30-55); Mean Corpuscular Hemoglobin 30.7 pg (27-33); Mean Corpuscular Volume 91.6 fl (82-101); Mean Platelet Volume 9.5 fL (7.4-10.4); Monocytes # 0.5 10^3/uL (0.2-0.9); Monocytes % 8.8 %; Neutrophils # 3.33 10^3/uL (1.8-7.7); Nucleated Red Blood Cells % 0 %; Platelet Count 158 10^3/cmm (157-399); Red Blood Count 4.88 10^6/uL (3.85-5.65); Red Cell Distribution Width 12.7 % (12.1-15.1); White Blood Count 5.12 10^3/uL (3.29-11.43)
[2024-10-07 09:57] LABS: Alanine Aminotransferase 23 U/L (0-41); Albumin Level 4.2 g/dL (3.5-5.2); Alkaline Phosphatase 84 U/L (40-130); Anion Gap 14.2 (5-19); Aspartate Amino Transferase 28 U/L (0-40); Blood Urea Nitrogen 11 mg/dL (8-23); Calcium 8.8 mg/dL (8.5-10.5); Carbon Dioxide 26 mmol/L (22-29); Chloride 102 mmol/L (98-107); Creatinine Clr Calc Pharmacy 97.9401; Globulin 2.8 g/dL (1.3-4.6); Glucose 114 mg/dL (65-115); Lactate Dehydrogenase 176 U/L (135-225); Osmolality Calculated 286 mOsm/kg (285-295); Potassium 4.2 mmol/L (3.5-5.1); Sodium 138 mmol/L (136-145); Total Bilirubin 0.8 mg/dL (0.15-1.2)
[2024-10-23] MEDS: iohexol 350 mg/mL 500 mL Btl (per mL) PO (14:00)
--- NOTE | 2024-10-23 14:00 | CTR_ITS ---
PROCEDURE INFORMATION: Exam: CT Chest With Contrast; Diagnostic Exam date and time: 10/23/2024 1:52 PM Age: 74 years old Clinical indication: Condition or disease; Other: Lymphoma; Prior surgery; Surgery date: 6+ months; Surgery type: Hernia; Additional info: Surveillance TECHNIQUE: Imaging protocol: Diagnostic computed tomography of the chest with contrast. Radiation optimization: All CT scans at this facility use at least one of these dose optimization techniques: automated exposure control; mA and/or kV adjustment per patient size (includes targeted exams where dose is matched to clinical indication); or iterative reconstruction. Contrast material: OMNI 350; Contrast volume: 100 ml; Contrast route: INTRAVENOUS (IV); COMPARISON: CT chest abdpel w/*[id number] 09/28/2021 1:46 PM RADIATION DOSE METRICS: Total DLP (mGy-cm): 1101.58 FINDINGS: Thyroid: The thyroid is unremarkable. Lungs: No focal consolidation. Pleural spaces: Unremarkable. No pneumothorax. No pleural effusion. Heart: Unremarkable. No cardiomegaly. No pericardial effusion. Coronary arteries: [id number] coronary artery calcification. Lymph nodes: Scattered prominent mediastinal lymph nodes some of which display calcification. Stable scattered prominent axillary lymph nodes largest of which measures 2 cm in the right axilla with a normal fatty hilum. Vasculature: Unremarkable. No aortic aneurysm. Bones/joints: Unremarkable. No acute fracture. Soft tissues: See Lymph nodes finding. Other findings: Scattered subcentimeter calcified granulomas and intra fissural lymph nodes. Appear stable from prior exam. PROCEDURE INFORMATION: Exam: CT Abdomen And Pelvis With Contrast Exam date and time: 10/23/2024 1:52 PM Age: 74 years old Clinical indication: Condition or disease; Other: Lymphoma; Prior surgery; Surgery date: 6+ months; Surgery type: Hernia; Additional info: Surveillance TECHNIQUE: Imaging protocol: Computed tomography of the abdomen and pelvis with contrast. Radiation optimization: All CT scans at this facility use at least one of these dose optimization techniques: automated exposure control; mA and/or kV adjustment per patient size (includes targeted exams where dose is matched to clinical indication); or iterative reconstruction. Contrast material: OMNI 350; Contrast volume: 100 ml; Contrast route: INTRAVENOUS (IV); COMPARISON: CT chest abdpel w/*[id number] 09/28/2021 1:46 PM RADIATION DOSE METRICS: Total DLP (mGy-cm): 1101.58 FINDINGS: Liver: Normal. No mass. Gallbladder and biliary ducts: Normal. No calcified stones. No ductal dilation. Pancreas: Normal. No ductal dilation. Spleen: Normal. No splenomegaly. Adrenal glands: Normal. No mass. Kidneys and ureters: Stable mild pelvicaliectasis bilaterally with mild hydroureter without obstructing ureteral calculus bilaterally. Redemonstrated 13 mm indeterminate cystic lesion in the lower pole of the left kidney (6/37. Additional left renal cortical hypodensities are unchanged. Stomach and bowel: Moderate colonic diverticulosis with no evidence to suggest acute diverticulitis. Appendix: The appendix is not definitively visualized however there are no secondary signs to suggest acute appendicitis. Intraperitoneal space: Nonspecific mesenteric stranding and haziness with scattered prominent mesenteric lymph nodes. Overall gross induration in the mesentery has decreased from prior exam. Vasculature: Unremarkable. No abdominal aortic aneurysm. Lymph nodes: Interval increase in retroperitoneal lymphadenopathy such as a left para-aortic lymph node measuring 14 mm in the short axis (6/32) additional para-aortic and/or mesenteric lymph node seen on series 6, image 44 measuring 16 mm. Increasing size of left common and external iliac lymph nodes measuring up to 17 mm in the short axis (6/68) additional prominent right external iliac and internal iliac lymph nodes are demonstrated which were not well identified on prior exam. Increasing size of inguinal lymph nodes such as a right inguinal lymph node measuring 13 mm in the short axis (6/82). Urinary bladder: The urinary bladder is circumferentially thickened with multiple small urinary bladder diverticula visualized. Reproductive: Stable moderate prostatomegaly with indentation on the urinary bladder. Bones/joints: Moderate multilevel degenerative changes of the thoracolumbar spine. Chronic compression deformity of L2. Soft tissues: Fat containing right inguinal hernia. CT/CT chest abdpel w/*[id number] IMPRESSION: 1. Scattered prominent mediastinal lymph nodes some of which display calcification indicative of posttreatment response and/or chronic granulomatous disease. Overall appear stable from prior exam with no new appreciable mediastinal lymphadenopathy. 2. Persistent prominent/enlarged axillary lymph nodes largest of which measures 2 cm in the right axilla. 3. No focal consolidation or pneumothorax. No suspicious or enlarging pulmonary nodule. 4. Moderate coronary artery calcification. IMPRESSION: 1. Increasing lymphadenopathy in the abdomen and pelvis as described above largest of which measures up to 16 mm in the short axis in the left para-aortic/mid mesentery. Additional lymphadenopathy seen along the left external iliac chain in the right inguinal region. 2. Decreasing overall induration at the root of the mesentery with slightly more pronounced haziness seen and scattered prominent mesenteric lymph nodes which are nonspecific and can be seen in the setting of mesenteric panniculitis. Differential diagnosis given patient's history includes lymphoma. 3. Stable prostatomegaly with findings suggestive of chronic urinary bladder obstruction. 4. Mild pelvicaliectasis and hydroureter bilaterally without evidence of obstructing calculus. 5. 13 mm indeterminate left lower pole renal cyst. 6. Other findings as described in the body of the report. COMMENTS: Consistent with the [employer]'s Incidental Findings Committee white paper (J Am Khoa [employer]iol 2018): Any incidental renal lesion less than 1 cm or classified as too small to characterize, or any incidental cystic renal lesion characterized as simple-appearing, is likely benign. No follow-up imaging is recommended for these lesions per consensus recommendations based on imaging criteria.
[2024-10-23] MEDS: iohexol 350 mg/mL 500 mL Btl (per mL) IV (14:01)
== END 2024-11-04 23:59 | disposition home or self-care (01) ==
LOC: ONCMED 10-24 09:31
PROVIDERS: Nurse Practitioner Family; PCP Family Medicine; Referring Provider Internal Medicine Medical Oncology; Visit Provider Internal Medicine
DX: Z53.9 Procedure and treatment not carried out, unspecified reason (principal); C82.18 Follicular lymphoma grade II, lymph nodes of multiple sites; N28.1 Cyst of kidney, acquired; Q62.39 Other obstructive defects of renal pelvis and ureter
CPT/HCPCS: 36415; 71260; 74177; 80053; 83615; 85025; 99213

== ENCOUNTER 2024-11-19 10:27 | Oncology outpatient (recurring) (ONCR) | payer MEDICARE, SELFPAY | END 2024-12-05 23:59 | disposition home or self-care (01) | PROVIDERS: PCP Family Medicine; Referring Provider Internal Medicine Medical Oncology; Visit Provider Internal Medicine | DX: Z53.9 Procedure and treatment not carried out, unspecified reason (principal); C82.18 Follicular lymphoma grade II, lymph nodes of multiple sites; N28.1 Cyst of kidney, acquired; Q62.39 Other obstructive defects of renal pelvis and ureter | CPT/HCPCS: 99213 ==

== ENCOUNTER → 2025-04-28 12:31 | Outpatient (BNVA) | payer MEDICARE, SELFPAY | PROVIDERS: PCP Family Medicine; Visit Provider Internal Medicine | DX: R07.9 Chest pain, unspecified (principal); I48.91 Unspecified atrial fibrillation; Z87.891 Personal history of nicotine dependence; I10 Essential (primary) hypertension; E78.5 Hyperlipidemia, unspecified; Z79.01 Long term (current) use of anticoagulants | CPT/HCPCS: 93005; 99204 ==

== ENCOUNTER 2025-06-02 15:00 | Oncology outpatient (recurring) (ONCR) | payer MEDICARE, SELFPAY ==
--- NOTE | 2025-05-15 12:00 | CTR_ITS ---
PROCEDURE INFORMATION: Exam: CT Chest With Contrast; Diagnostic Exam date and time: 05/15/2025 12:00 PM Age: 74 years old Clinical indication: Condition or disease; Other: Follicular lymphoma; Prior surgery; Surgery date: 6+ months; Surgery type: L inguinal hernia; Additional info: Follicular lymphoma; Compare to previous TECHNIQUE: Imaging protocol: Diagnostic computed tomography of the chest with contrast. Radiation optimization: All CT scans at this facility use at least one of these dose optimization techniques: automated exposure control; mA and/or kV adjustment per patient size (includes targeted exams where dose is matched to clinical indication); or iterative reconstruction. Contrast material: OMNI 350; Contrast volume: 90 ml; Contrast route: INTRAVENOUS (IV); COMPARISON: CT chest abdpel w/*[id number] 10/23/2024 1:52 PM RADIATION DOSE METRICS: Total DLP (mGy-cm): 1142.58 FINDINGS: Thyroid: Normal thyroid. Lungs: Stable right lower lobe granulomatous calcification. Pleural spaces: Unremarkable. No pneumothorax. No pleural effusion. Heart: The heart size is within normal limits. There is no pericardial effusion. There are coronary artery atherosclerotic changes present. Lymph nodes: Stable calcified subcarinal lymph nodes. Stable short axis, 8.8 mm right axillary lymph node showing normal fatty hilum. Vasculature: Minimal stable aortic calcification without aneurysm or dissection. Bones/joints: Stable mid and lower thoracic hypertrophic endplate changes.There is no fracture, lytic, or blastic lesion. Soft tissues: Unremarkable. PROCEDURE INFORMATION: Exam: CT Abdomen And Pelvis With Contrast Exam date and time: 05/15/2025 12:00 PM Age: 74 years old Clinical indication: Condition or disease; Other: Follicular lymphoma; Prior surgery; Surgery date: 6+ months; Surgery type: L inguinal hernia; Additional info: Follicular lymphoma; Compare to previous TECHNIQUE: Imaging protocol: Computed tomography of the abdomen and pelvis with contrast. Radiation optimization: All CT scans at this facility use at least one of these dose optimization techniques: automated exposure control; mA and/or kV adjustment per patient size (includes targeted exams where dose is matched to clinical indication); or iterative reconstruction. Contrast material: OMNI 350; Contrast volume: 90 ml; Contrast route: INTRAVENOUS (IV); COMPARISON: CT chest abdpel w/*[id number] 09/28/2021 1:46 PM RADIATION DOSE METRICS: Total DLP (mGy-cm): 1142.58 FINDINGS: Liver: Normal. No mass. Gallbladder and biliary ducts: Normal. No calcified stones. No ductal dilation. Pancreas: Normal. No ductal dilation. Spleen: Stable splenic granulomatous calcifications. Adrenal glands: Normal. No mass. Kidneys and ureters: A stable small, 12 mm exophytic water density cyst from the lateral midpole of the left kidney is again seen. The kidneys and ureters are otherwise. Stomach and bowel: Proximal sigmoid diverticulosis is seen without diverticulitis. Appendix: Normal appendix is demonstrated. Intraperitoneal space: Unremarkable. No free air. No significant fluid collection. Vasculature: Mild aortoiliac atherosclerotic calcifications are seen without aneurysm or dissection. There are no significant stenoses. Lymph nodes: Increasing retroperitoneal lymphadenopathy is identified in the upper abdomen index lymph nodes as follows: /33, 16.2 mm short axis compared 13.5 mm on prior study. 5/40, 9.8 mm short axis lymph node compared with 7.5 mm on prior study. /45, 15.5 short axis lymph node compared 12.9 mm on prior study. Right inguinal region there is a 24.9 x 37.6 mm enlarged lymph node in the axial plane, seen on most inferior of today's images. This lies outside prior field of view preventing direct comparison. However, slightly more superior to this nodule, mildly enlarged lymph nodes are demonstrated which demonstrate an interval increase in size as well. No left inguinal adenopathy is present. Urinary bladder: Unremarkable as visualized. Reproductive: Prostatomegaly is present elevation bladder base. Some dystrophic prostate calcifications also noted. Bones/joints: Unremarkable. No acute fracture. Soft tissues: An indirect fat containing right inguinal hernia is present. This shows no significant change. CT/CT chest abdpel w/*[id number] IMPRESSION: 1. Stable chest CT showing mediastinal calcified lymph nodes suggesting either old granulomatous disease or posttreatment response. No new adenopathy. 2. Prominent right axillary lymph node, largest measuring 2 cm in diameter with short axis 8.8 mm and showing a fatty hilum. This is felt to be a normal lymph node. 3. No acute cardiopulmonary pathology. IMPRESSION: 1. Probable recurrent lymphoma with enlargement of retroperitoneal right inguinal lymph nodes. 2. Stable 12 mm exophytic water density cyst from the lateral midpole of the left kidney.
--- NOTE | 2025-05-15 12:00 | CTR_ITS ---
PROCEDURE INFORMATION: Exam: CT Neck With Contrast Exam date and time: 05/15/2025 12:07 PM Age: 74 years old Clinical indication: Condition or disease; Other: Follicular lymphoma; Prior surgery; Surgery date: 6+ months; Surgery type: L inguinal hernia TECHNIQUE: Imaging protocol: Computed tomography of the neck with contrast. Radiation optimization: All CT scans at this facility use at least one of these dose optimization techniques: automated exposure control; mA and/or kV adjustment per patient size (includes targeted exams where dose is matched to clinical indication); or iterative reconstruction. Contrast material: OMNI 350; Contrast volume: 40 ml; Contrast route: INTRAVENOUS (IV); COMPARISON: CT chest abdpel w/*[id number] 05/15/2025 12:00 PM RADIATION DOSE METRICS: Total DLP (mGy-cm): 310.83 FINDINGS: Brain: The visible portions of the brain are unremarkable. Paranasal sinuses: There is complete opacification of the left maxillary sinus consistent with infundibular obstruction. Heterogeneous soft tissue density within the sinuses seen which may reflect inspissated mucus. Smooth mucoperiosteal hypertrophy is also noted right maxillary sinus. The ethmoid, sphenoid, and frontal sinuses free of inflammation to the extent visible. Mastoid air cells: There is no mastoiditis or otitis media. Salivary glands: Parotid glands are normal. The submandibular glands are remarkable for a punctate calcification along the posterior margin of the right submandibular gland. No obstruction is observed. Pharynx: Unremarkable. No significant tonsillar enlargement. Larynx: Unremarkable. Epiglottis is normal. Thyroid: Thyroid is normal. Trachea: Visualized trachea is unremarkable. Lungs: Lung apices are unremarkable. No superior mediastinal lymphadenopathy is. Lymph nodes: There are mildly prominent diffuse cervical lymph nodes present, not exceeding size criteria for pathologic change, the largest in the left supraclavicular region (4/103) with short axis of 9.9 mm. Level 1 through level 5 mild lymph prominence is evident. Bones/joints: There is no evidence of acute fracture. Concavity endplates bordering the C2-C3 through T1-2 disc spaces is noted. Soft tissues: Unremarkable. No significant soft tissue swelling. CT/CT neck w con* [id number] IMPRESSION: 1. Diffuse mild cervical lymph node prominence, none of which exceed size criteria for pathologic change. Given the patient's history, continued follow-up is recommended. 2. Complete opacification of the left maxillary sinus, consistent with infundibular obstruction. There is heterogeneous soft tissue density within the sinus, likely indicating inspissated mucus. 3. Chronic inflammation, right maxillary sinus. 4. Punctate calcification, posterior margin of the right submandibular gland, likely reflecting sialolithiasis although no obstruction is noted.
[2025-05-15] MEDS: iohexol 350 mg/mL 500 mL Btl (per mL) IV (12:17)
[2025-05-15] MEDS: iohexol 350 mg/mL 500 mL Btl (per mL) PO (12:17)
[2025-05-20 10:32] LABS: Hematocrit 42.6 % (37-53); Hemoglobin 14.50 g/dL (11.27-16.99); Mean Corpuscular HGB Conc 34.0 g/dL (30-55); Mean Corpuscular Hemoglobin 31.0 pg (27-33); Mean Corpuscular Volume 91.2 fl (82-101); Nucleated Red Blood Cells % 0 %; Platelet Count 169 10^3/cmm (157-399); Red Blood Count 4.67 10^6/uL (3.85-5.65); White Blood Count 4.89 10^3/uL (3.29-11.43)
[2025-05-20 10:51] LABS: Alanine Aminotransferase 14 U/L (0-41); Albumin Level 4.2 g/dL (3.5-5.2); Alkaline Phosphatase 85 U/L (40-130); Anion Gap 15.4 (5-19); Aspartate Amino Transferase 24 U/L (0-40); Blood Urea Nitrogen 9 mg/dL (8-23); Calcium 8.8 mg/dL (8.5-10.5); Carbon Dioxide 24 mmol/L (22-29); Chloride 105 mmol/L (98-107); Creatinine Clr Calc Pharmacy 99.1431; Globulin 2.5 g/dL (1.3-4.6); Glucose 108 mg/dL (65-115); Osmolality Calculated 289 mOsm/kg (285-295); Potassium 4.4 mmol/L (3.5-5.1); Sodium 140 mmol/L (136-145); Total Protein 6.7 g/dL (6.6-8.7); Uric Acid 4.7 mg/dL (3.4-7.0)
[2025-05-21 04:14] LABS: PROTEIN, TOTAL 6.5 g/dL (6.1-8.1)
[2025-05-21 20:59] LABS: ALPHA 1 GLOBULIN 0.3 g/dL (0.2-0.3); ALPHA 2 GLOBULIN 0.6 g/dL (0.5-0.9); BETA 1 GLOBULIN 0.4 g/dL (0.4-0.6); BETA 2 GLOBULIN 0.3 g/dL (0.2-0.5)
--- NOTE | 2025-06-02 15:00 | USCV_ITS ---
Sheng Barrios Age: 74 Gender: M : 1950 Exam Date: 06/02/2025 14:39 Ordering Phys: Indra Zhao M.D ([email or web address]) Technologist: Exam Location: [facility] [place] Indication: as afib BP: 130 / 80 HR: 76 Rhythm: Sinus Technical Quality: MEASUREMENTS (Male / Female) Normal Values 2D ECHO LV Diastolic Diameter PLAX 4.5 cm 4.2 - 5.9 / 3.9 - 5.3 cm IVS Diastolic Thickness 0.9 cm 0.6 - 1.0 / 0.6 - 0.9 cm IVS Systolic Thickness 1.5 cm LVPW Diastolic Thickness 1.3 cm 0.6 - 1.0 / 0.6 - 0.9 cm LVPW Systolic Thickness 1.4 cm LVOT Diameter 2.0 cm LV Ejection Fraction 2D Teich 65.2 % LV Ejection Fraction MOD 4C 65.8 % LV Ejection Fraction MOD 2C 67.4 % LV Ejection Fraction 2C AL 68.1 % LA Diameter 3.5 cm RA Systolic Volume 4C AL 43.6 ml RA Systolic Volume 4C MOD 42.1 ml LA Sys Volume AL 90.9 cm cubed LA Sys Volume Index AL 44.4 cm cubed/m squared Aorta at Sinotubular Diameter 2.4 cm IVC Diameter 2.0 cm M-MODE LA Ao Ratio MM 1.5 AV Cusp Separation MM 1.8 cm DOPPLER AV Peak Velocity 188.0 cm/s LVOT Peak Velocity 101.0 cm/s AV Area Cont Eq vti 1.6 cm squared AV Area Cont Eq pk 1.7 cm squared MV Peak Velocity 101.0 cm/s MV Area PHT 2.9 cm squared TV Peak Velocity 213.5 cm/s TR Peak Velocity 287.0 cm/s TR Peak Gradient 32.9 mmHg TV Peak E Velocity 79.0 cm/s FINDINGS Left Ventricle Normal left ventricular size, systolic function and wall thickness, with no regional wall motion abnormalities. Left ventricular ejection fraction is estimated at 60 %. Grade I/IV diastolic dysfunction (abnormal relaxation filling pattern), normal to mildly elevated filling pressures. Right Ventricle The right ventricle is normal in size and function. Right Atrium The right atrium is normal in size. Left Atrium Moderately increased left atrial size. Mitral Valve Moderately thickened mitral valve. Moderate mitral annular calcification. No mitral valve stenosis. Trace mitral valve regurgitation. Aortic Valve Structurally normal aortic valve without significant sclerosis or stenosis. There is no aortic regurgitation. Tricuspid Valve Structurally normal tricuspid valve without significant stenosis or regurgitation. Pulmonary artery systolic pressure is normal. Pulmonic Valve Trace pulmonary valve regurgitation. Pericardium Normal pericardium without effusion. Aorta Normal ascending aorta dimension. IVC The inferior vena cava appears normal. CONCLUSIONS Normal left ventricular size, systolic function and wall thickness, with no regional wall motion abnormalities. Left ventricular ejection fraction is estimated at 60 %. Grade I/IV diastolic dysfunction (abnormal relaxation filling pattern), normal to mildly elevated filling pressures. Moderately thickened mitral valve. Moderate mitral annular calcification. No mitral valve stenosis. Trace mitral valve regurgitation. There is no pericardial effusion. Right atrial pressure is around 5 mm of mercury. Sharonda Lindo MD (Electronically Signed) Final Date: 03 June 2025 13:20 S
== END 2025-06-04 23:59 | disposition home or self-care (01) ==
LOC: RAD 06-03 → ONCMED 06-03 10:15
PROVIDERS: PCP Family Medicine; Referring Provider Internal Medicine Medical Oncology; Visit Provider Internal Medicine
DX: Z53.9 Procedure and treatment not carried out, unspecified reason; R06.02 Shortness of breath; I34.0 Nonrheumatic mitral (valve) insufficiency
CPT/HCPCS: 36415; 70491; 71260; 74177; 80053; 82784; 83010; 83615; 84155; 84165; 84550; 85025; 85045; 85651; 86146; 86334; 93306; 99213

== ENCOUNTER → 2025-09-25 10:46 | Outpatient (BNVA) | payer MEDICARE, SELFPAY | PROVIDERS: PCP Family Medicine; Visit Provider Dermatology | DX: L82.1 Other seborrheic keratosis (principal); L81.4 Other melanin hyperpigmentation; D18.01 Hemangioma of skin and subcutaneous tissue; Z08 Encounter for follow-up examination after completed treatment for malignant neoplasm; Z85.828 Personal history of other malignant neoplasm of skin; D48.5 Neoplasm of uncertain behavior of skin; C44.41 Basal cell carcinoma of skin of scalp and neck; C44.619 Basal cell carcinoma of skin of left upper limb, including shoulder; C44.519 Basal cell carcinoma of skin of other part of trunk; C44.01 Basal cell carcinoma of skin of lip | CPT/HCPCS: 11102; 99203 ==

== ENCOUNTER → 2025-10-27 11:50 | Outpatient (BNVA) | payer MEDICARE, SELFPAY | PROVIDERS: PCP Family Medicine; Visit Provider Internal Medicine | DX: I48.91 Unspecified atrial fibrillation (principal); E78.5 Hyperlipidemia, unspecified; I10 Essential (primary) hypertension; Z79.01 Long term (current) use of anticoagulants | CPT/HCPCS: 99214 ==